=== PATIENT | female | born 1965 | race Caucasian/White ===

== ENCOUNTER 2016-10-29 17:24 | Inpatient (IN) | payer OTHER, BC ==
[~2016-10-29] VITALS: Ht 165.1 cm; Wt 76.4 kg
[~2016-10-29 17:24] MED LIST: AMPH20TA2 PO; ASPEC81 PO; BUPR-83 PO; CLON0.5T3 PO; ERGO1CAP35 PO; GLC/500 PO; LSN25 PO; NTRSLP4 SL; PRAZ2CAP3 PO; PRAZ5CAP2 PO; SERT50TA PO; SIMV20TA2 PO; SPIR25TA PO; TOPI50TA16 PO; TRET0.1C42 TOP
[2016-10-29] MEDS ORDERED: ASPIRIN 81 MG CHEW PO STA (17:46)
[2016-10-29 17:55] LABS: BASO % 0.6 %; BASO ABS # 0.04 K/uL (0-0.2); COMPLETE YES; HEMATOCRIT 38.3 % (37-47); IG% 0.1 %; LYMPH % 28.5 %; LYMPH ABS # 1.95 K/uL (1.2-3.4); MEAN CELL VOLUME 84.4 fL (80-100); MEAN CORPUSCULAR HEMOGLOBIN 27.8 pg (25-34); MEAN CORPUSCULAR HGB CONC 32.9 g/dl (32-36); MEAN PLATELET VOLUME 9.1 fL (7.4-10.4); MONO % 11.1 %; NEUT % 57.7 %; PLATELET COUNT 297 K/uL (130-400); RED BLOOD COUNT 4.54 M/uL (4.2-5.4); WHITE BLOOD COUNT 6.84 K/uL (4.8-10.8)
[2016-10-29 18:06] LABS: ALT/SGPT 28 U/L (12-78); BLOOD UREA NITROGEN 30 mg/dl (7-18); BUN/CREATININE RATIO 20.1 (10-20); CALCIUM 8.9 mg/dl (8.5-10.1); CARBON DIOXIDE 21 mmol/L (21-32); CHLORIDE 105 mmol/L (98-107); GLUCOSE 96 mg/dl (70-99); POTASSIUM 4.4 mmol/L (3.5-5.1); SODIUM 138 mmol/L (136-145)
[2016-10-29 18:13] LABS: ALKALINE PHOSPHATASE 69 U/L (45-117); AST/SGOT 14 U/L (15-37); CKMB/CK RATIO 1.1 (0-3.0)
[2016-10-29] MEDS ORDERED: SODIUM CHLORIDE 0.9% 1000ML 1,000 ML IV STA (18:16)
[2016-10-29] MEDS ORDERED: SPRN100 PO (18:24)
[2016-10-29] MEDS ORDERED: ZLF/100 PO (18:24)
[2016-10-29] MEDS ORDERED: CLON0.5T3 PO (18:24)
[2016-10-29] MEDS ORDERED: ERGO500037 PO (18:24)
--- NOTE | 2016-10-29 18:53 | EMERGENCY ROOM VISIT NOTE ---
History Report prepared by Kendy: Beatriz Rome Under the Supervision of: Dr. Abdullahi Bentley M.D. First contact with patient: 17:39 Chief Complaint: CHEST PAIN Stated Complaint: CHEST PAIN SHORTNESS OF BREATH History of Present Illness The patient is a 51 year old female who presents to the Emergency Room with complaints of constant chest pain for the past 2 days. She notes shortness of breath that is worse with exertion. She has a history of Takotsubo cardiomyopathy about 1 year ago. She states that her current symptoms feel similar to the symptoms she experienced then. The patient reports that stress seems to exacerbate these symptoms. 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 It has not been any more stressful than usual. She rates her pain as a 4/10 in severity. 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 Jewell and has an appointment next week. She takes a daily aspirin. Source of History: patient Onset: 2 days ago Position: chest Symptom Intensity: 4/10 Timing: constant Modifying Factors (Worsening): exertion, other (stress) Associated Symptoms: + SOB Review of Systems See HPI for pertinent positives & negatives. A total of 10 systems reviewed and were otherwise negative. Past Medical & Surgical Medical Problems: (1) Attention deficit disorder with hyperactivity (2) Coronary artery disease (3) Hyperlipidemia (4) Insulin resistance (5) Posttraumatic stress disorder (6) Takotsubo cardiomyopathy Surgical Problems: (1) Status post cardiac catheterization (2) Status post tubal ligation Family History Patient reports no known family medical history. Social History Smoking Status: Never Smoker Marital Status: Housing Status: lives with family Occupation Status: unemployed Current/Historical Medications Scheduled Amphetamine-Dextroamphetamine 20MG (Adderall 20MG), 20 MG PO BID Aspirin (Ecotrin Low Strength), 81 MG PO HS Bupropion (Wellbutrin), 200 MG PO QAM Bupropion (Wellbutrin), 100 MG PO QPM Clonazepam (Klonopin), 0.5 MG PO TID Ergocalciferol (Vitamin D 47553 Unit), 50,000 UNIT PO WK Lisinopril (Lisinopril), 2.5 MG PO QAM Metformin Hcl (Glucophage), 500 MG PO BID Prazosin Hcl (Prazosin), 10 MG PO HS Sertraline HCl (Sertraline HCl), 100 MG PO BID Simvastatin (Zocor), 20 MG PO HS Spironolactone (Spironolactone), 100 MG PO BID Topiramate (Topamax), 50 MG PO HS Tretinoin (Tretinoin), 1 APPLN TOP HS Scheduled PRN Clonazepam (Klonopin), 0.5 MG PO DAILY PRN for Anxiety Nitroglycerin (Nitrostat), 0.4 MG SL UD PRN for Chest Pain Allergies Coded Allergies: Sulfa Antibiotics (Verified Allergy, Severe, FACIAL SWELLING, 10/29/16) Buspirone (Verified Allergy, Unknown, SUICIDAL IDEATIONS, 10/29/16) Physical Exam Vital Signs Date Time Temp Pulse Resp B/P Pulse Ox O2 Delivery O2 Flow Rate FiO2 10/29/16 19:24 78 23 99 10/29/16 19:21 121/55 10/29/16 18:54 77 16 10/29/16 18:24 77 21 100 10/29/16 17:54 100 Room Air 10/29/16 17:54 100 Room Air 10/29/16 17:54 79 22 99 10/29/16 17:42 82 10/29/16 17:26 37.0 81 18 109/76 90 Room Air Physical Exam GENERAL: Patient is a healthy-appearing well-nourished 51 year old female. HEAD: Normocephalic atraumatic EYES: Ocular movements intact pupils equal and react to light OROPHARYNX mucous membranes are moist no exudates present no erythema or edema present NECK: Supple no nuchal rigidity CHEST: Good equal expansion LUNGS: Clear and equal to auscultation CARDIAC: Normal S1 and S2 ABDOMEN: Soft nontender no guarding BACK: No CVA tenderness EXTREMITIES: No pain upon palpation normal muscle strength in all groups no clubbing cyanosis or edema NEURO: Patient is following commands is answering questions appropriately. Alert and oriented x3 Cranial Nerves 2-12 grossly intact Medical Decision & Procedures ER Provider Diagnostic Interpretation: Radiology results as stated below per my review and radiologist interpretation: SINGLE VIEW CHEST CLINICAL HISTORY: Atypical chest pain. FINDINGS: An AP, portable, upright chest radiograph is compared to study dated 11/26/2015. The cardiomediastinal silhouette is unremarkable. An accessory azygous fissure is incidentally noted. The lungs and pleural spaces are clear. No pneumothorax is seen. The bony thorax is grossly intact. IMPRESSION: No active disease in the chest. Electronically signed by: Meet Mccullough M.D. 10/29/2016 7:04 PM Dictated Date/Time: 10/29/2016 7:04 PM Laboratory Results Test 10/29/16 17:40 Total Bilirubin 0.2 mg/dl (0.2-1) Direct Bilirubin < 0.1 mg/dl (0-0.2) Aspartate Amino Transf (AST/SGOT) 14 U/L (15-37) Alanine Aminotransferase (ALT/SGPT) 28 U/L (12-78) Alkaline Phosphatase 69 U/L (45-117) Total Protein 7.2 gm/dl (6.4-8.2) Albumin 3.9 gm/dl (3.4-5.0) Lipase 258 U/L (73-393) Labs reviewed by ED physician. Medications Administered Medications (Trade) Dose Ordered Sig/Zoila Route Start Time Stop Time Status Last Admin Dose Admin Aspirin 324 mg 324 mg NOW STAT PO 10/29/16 17:46 10/29/16 17:48 DC 10/29/16 18:21 324 MG Sodium Chloride (Nss 1000ml) 1,000 ml @ 999 mls/hr Q1H1M STAT IV 10/29/16 18:16 10/29/16 19:16 DC 10/29/16 18:23 999 MLS/HR ED Course 1739: Past medical records reviewed. The patient was evaluated in room B10. A complete history and physical examination was performed. 1746: Aspirin 324 mg PO 1816: NSS 1000 ml @ 99 mls/hr IV 1850: I reassessed the patient at this time. She is resting comfortably. I discussed the results and treatment plan with the patient. I answered all pertaining questions that she had. She expressed understanding and verbalized agreement. 1858: I spoke with Dr. Varghese. We discussed the patients results and treatment plan. The patient will be evaluated by the [facility] for further management. Medical Decision Differential diagnosis: Etiologies such as cardiac ischemia, aortic dissection, pulmonary embolism, pneumonia, pneumothorax, musculoskeletal, infections, pericarditis, myocarditis , esophageal rupture, gastrointestinal, as well as others were entertained. This is a 51-year-old female who presents emergency department with a history of broken heart syndrome. Patient is complaining of chest pain that has been ongoing for the past 3 days. She does have an elevation in her troponin. I did discuss the case with the hospitalist service who agreed to admit the patient. The patient was given 3 and 24 mg of aspirin. Patient was in agreement with the treatment plan. Consults Time Called: 1854 Consulting Physician: Dr. Varghese Returned Call: [address] Varghese. We discussed the patients results and treatment plan. The patient will be evaluated by the [facility] for further management. Impression Primary Impression: Chest pain Scribe Attestation The scribe's documentation has been prepared under my direction and personally reviewed by me in its entirety. I confirm that the note above accurately reflects all work, treatment, procedures, and medical decision making performed by me. Departure Information Dispostion Being Evaluated By Hospitalist Referrals Romy Fuller D.O. (PCP) Patient Instructions My [facility] Problem Qualifiers Primary Impression: Chest pain Chest pain type: precordial pain Qualified Codes: R07.2 - Precordial pain
--- NOTE | 2016-10-29 19:05 | DIAGNOSTIC IMAGING REPORT ---
SINGLE VIEW CHEST CLINICAL HISTORY: Atypical chest pain. FINDINGS: An AP, portable, upright chest radiograph is compared to study dated 11/26/2015. The cardiomediastinal silhouette is unremarkable. An accessory azygous fissure is incidentally noted. The lungs and pleural spaces are clear. No pneumothorax is seen. The bony thorax is grossly intact. IMPRESSION: No active disease in the chest. Electronically signed by: Meet Mccullough M.D. 10/29/2016 7:04 PM Dictated Date/Time: 10/29/2016 7:04 PM
--- NOTE | 2016-10-29 19:24 | History and Physical ---
History & Physical Date & Time of Service: Oct 29, 2016 at 19:24 . Chief Complaint: Chest Pain Shortness Of Breath Primary Care Physician: Romy Fuller D.O. . History of Present Illness Source: patient, family, clinic records, hospital records 51 YO female followed by Dr. Fuller for Family Medicine; to see Dr. Jewell to get established for Cardiology care in about 2 weeks. Admitted for chest pain in 2014. Cardiac cath revealed only mild coronary artery disease (30% proximal LAD). Ventriculogram and echo consistent with takotsubo cardiomyopathy. Patient had been under significant emotional stress at that time. She was treated medically, did well, and reports that follow-up echocardiogram showed resolution of wall motion abnormalities; subsequently weaned off most cardiac meds. Developed mid-sternal chest pressure and dyspnea about 3 days ago. The chest pressure has been constant, nonradiating. She rates the pain as 5/10. No associated nausea or vomiting. Tried nitroglycerin on 3 occasions without any relief. She is physically active and works out 3 times a week, but has noted dyspnea walking up stairs and was unable to complete her usual gym routine yesterday. No fever. She has a mild nonproductive cough which seems to be residual from a respiratory illness about 2-3 weeks ago. Had a syncopal episode last evening, preceded by lightheadedness and diaphoresis. No associated palpitations, seizure activity, tongue biting, incontinence, postictal confusion. reports that she was unresponsive for about 15 seconds. 2 or 3 similar syncopal episodes over the past few weeks. She has had ongoing emotional stress over past few years with associated posttraumatic stress disorder. No new / acute stressors. . Past Medical/Surgical History Chronic and Resolved Medical Problems: (1) Attention deficit disorder with hyperactivity Status: Chronic (2) Coronary artery disease Permanent Comment: nonocclusive CAD 30% proximal LAD per cath 07/07/15 Status: Chronic (3) Hyperlipidemia Status: Chronic (4) Insulin resistance Status: Chronic (5) Posttraumatic stress disorder Status: Chronic (6) Takotsubo cardiomyopathy Permanent Comment: 2014 Status: Resolved Surgical Problems: (1) Status post cardiac catheterization Permanent Comment: nonocclusive CAD 30% proximal LAD 07/07/15 Status: Chronic (2) Status post tubal ligation Status: Chronic . Family History Patient reports no known family medical history. Social History Smoking Status: Never Smoker Alcohol Use: none Marital Status: Occupational Status: unemployed Multi-Drug Resistant Organisms History of MDRO: No Allergies Coded Allergies: Sulfa Antibiotics (Verified Allergy, Severe, FACIAL SWELLING, 10/29/16) Buspirone (Verified Allergy, Unknown, SUICIDAL IDEATIONS, 10/29/16) Home Medications Scheduled Amphetamine-Dextroamphetamine 20MG (Adderall 20MG), 20 MG PO BID Aspirin (Ecotrin Low Strength), 81 MG PO HS Bupropion (Wellbutrin), 200 MG PO QAM Bupropion (Wellbutrin), 100 MG PO QPM Clonazepam (Klonopin), 0.5 MG PO TID Ergocalciferol (Vitamin D 36131 Unit), 50,000 UNIT PO WK Lisinopril (Lisinopril), 2.5 MG PO QAM Metformin Hcl (Glucophage), 500 MG PO BID Prazosin Hcl (Prazosin), 10 MG PO HS Sertraline HCl (Sertraline HCl), 100 MG PO BID Simvastatin (Zocor), 20 MG PO HS Spironolactone (Spironolactone), 100 MG PO BID Topiramate (Topamax), 50 MG PO HS Tretinoin (Tretinoin), 1 APPLN TOP HS Scheduled PRN Clonazepam (Klonopin), 0.5 MG PO DAILY PRN for Anxiety Nitroglycerin (Nitrostat), 0.4 MG SL UD PRN for Chest Pain Review of Systems Constitutional: No chills, No fever, No weight loss Eyes: + worsening of vision (attributed to cataract), No diplopia ENT: No nasal symptoms, No sore throat Respiratory: + cough (mild, nonproductive), + dyspnea on exertion, + shortness of breath Cardiovascular: + problem reported (as noted above in HPI) Abdomen: No GI bleeding, No diarrhea, No nausea, No pain, No vomiting Musculoskeletal: No joint pain, No muscle pain Genitourinary - Female: No dysuria, No hematuria Neurologic: + problem reported (no headaches) Psychiatric: + anxiety, + depression symptoms Endocrine: No excessive thirst, No excessive urination Hematologic / Lymphatic: + abnormal bleeding/bruising, No swollen lymph nodes Integumentary: No new/changing skin lesions, No rash Physical Exam Vital Signs Date Time Temp Pulse Resp B/P Pulse Ox O2 Delivery O2 Flow Rate FiO2 10/29/16 17:54 100 Room Air 10/29/16 17:54 100 Room Air 10/29/16 17:42 82 10/29/16 17:26 37.0 81 18 109/76 90 Room Air General Appearance: WD/WN, no apparent distress Head: normocephalic, atraumatic Eyes: normal inspection, PERRL, EOMI, sclerae normal ENT: normal ENT inspection, hearing grossly normal, pharynx normal Neck: supple, no adenopathy, thyroid normal, no JVD, trachea midline Respiratory/Chest: lungs clear, no respiratory distress, no accessory muscle use Cardiovascular: regular rate, rhythm, no edema, no gallop, no JVD, + systolic murmur (II/ systolic murmur at base) Abdomen/GI: normal bowel sounds, non tender, soft, no organomegaly Extremities/Musculoskelatal: normal inspection, no calf tenderness, no pedal edema Neurologic/Psych: 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-XII nml as tested (PERRL, EOMI, no facial palsy), no motor/sensory deficits (grossly intact), alert, normal mood/affect, oriented x 3 Skin: normal color, warm/dry, no rash Lymphatic: no adenopathy Diagnostics Laboratory Results Results Past 24 Hours Test 10/29/16 17:40 Range/Units White Blood Count 6.84 4.8-10.8 K/uL Red Blood Count 4.54 4.2-5.4 M/uL Hemoglobin 12.6 12.0-16.0 g/dL Hematocrit 38.3 37-47 % Mean Corpuscular Volume 84.4 80-100 fL Mean Corpuscular Hemoglobin 27.8 25-34 pg Mean Corpuscular Hemoglobin Concent 32.9 32-36 g/dl Platelet Count 297 130-400 K/uL Mean Platelet Volume 9.1 7.4-10.4 fL Neutrophils (%) (Auto) 57.7 % Lymphocytes (%) (Auto) 28.5 % Monocytes (%) (Auto) 11.1 % Eosinophils (%) (Auto) 2.0 % Basophils (%) (Auto) 0.6 % Neutrophils # (Auto) 3.94 1.4-6.5 K/uL Lymphocytes # (Auto) 1.95 1.2-3.4 K/uL Monocytes # (Auto) 0.76 0.11-0.59 K/uL Eosinophils # (Auto) 0.14 0-0.5 K/uL Basophils # (Auto) 0.04 0-0.2 K/uL RDW Standard Deviation 39.2 36.4-46.3 fL RDW Coefficient of Variation 12.8 11.5-14.5 % Immature Granulocyte % (Auto) 0.1 % Immature Granulocyte # (Auto) 0.01 0.00-0.02 K/uL Sodium Level 138 136-145 mmol/L Potassium Level 4.4 3.5-5.1 mmol/L Chloride Level 105 98-107 mmol/L Carbon Dioxide Level 21 21-32 mmol/L Anion Gap 12.0 3-11 mmol/L Blood Urea Nitrogen 30 7-18 mg/dl Creatinine 1.50 0.60-1.20 mg/dl Est Creatinine Clear Calc Drug Dose 43.7 ml/min Estimated GFR () 45.6 Estimated GFR (Non- 39.4 BUN/Creatinine Ratio 20.1 10-20 Random Glucose 96 70-99 mg/dl Calcium Level 8.9 8.5-10.1 mg/dl Total Bilirubin 0.2 0.2-1 mg/dl Direct Bilirubin < 0.1 0-0.2 mg/dl Aspartate Amino Transf (AST/SGOT) 14 15-37 U/L Alanine Aminotransferase (ALT/SGPT) 28 12-78 U/L Alkaline Phosphatase 69 45-117 U/L Total Creatine Kinase 122 26-192 U/L Creatine Kinase MB 1.3 0.5-3.6 ng/ml Creatine Kinase MB Ratio 1.1 0-3.0 Troponin I 0.066 0-0.045 ng/ml Total Protein 7.2 6.4-8.2 gm/dl Albumin 3.9 3.4-5.0 gm/dl Lipase 258 73-393 U/L Diagnostic Radiology SINGLE VIEW CHEST IMPRESSION: No active disease in the chest. Electronically signed by: Meet Mccullough M.D. 10/29/2016 7:04 PM . EKG EKG performed at 17:33 reviewed and demonstrated NSR at 85 / minute, ~ [address] elevation V2 with biphasic T-waves, ~ 0.[address] elevation V3, ~ 0.[address] depression lateral precordial leads. . Impression Assessment and Plan CHEST PAIN / DYSPNEA History of takotsubo cardiomyopathy 2014 with reported resolution of LV dysfunction. Cath demonstrated 30% proximal LAD lesion. Now presents with 3 day history of constant chest pressure associated with significant dyspnea. Serum troponin minimally elevated at 0.066. EKG as noted above shows NSR with [address] elevation only in V2; does not meet criteria for STEMI. Consider non-STEMI, recurrent takotsubo cardiomyopathy, pericarditis, or other processes. Received aspirin in ED. Will not initiate full anticoagulation unless cardiac markers rise or there are significant clinical changes. Check serial cardiac markers. Check ESR and CRP. Check D-dimer to screen for possible VTE. Check echo. Consult Cardiology. SYNCOPE Patient and her report a few syncopal episodes over the past few weeks. BUN and creatinine are elevated; she may be experiencing orthostatic hypotension Hold spironolactone. IV fluids. Check orthostatic vital signs. Monitor for arrhythmias. Consider further evaluation if symptoms recur. ANXIETY / DEPRESSION / POSTTRAUMATIC STRESS DISORDER Continue usual meds. ADHD Hold amphetamine-dextroamphetamine pending cardiac evaluation. VTE PROPHYLAXIS SQ enoxaparin. Ambulate. DISPOSITION Admit to Telemetry Unit. Expected discharge to home. Family Medicine follow-up with Dr. Fuller. Cardiology follow-up with Dr. Jewell. . VTE Prophylaxis Risk Level: Low Given or contraindicated: Enoxaparin (Lovenox)SQ
[2016-10-29] MEDS ORDERED: NITROGLYCERIN 0.4 MG SL PER TAB CHARGE SL PRN (19:30)
[2016-10-29] MEDS ORDERED: ACETAMINOPHEN 325 MG TAB PO PRN (19:30)
[2016-10-29 20:32] VITALS: BP 125/81; PULSE 84; TEMP 36.9; O2SAT 98; Ht 165.1 cm; Wt 76.4 kg
[2016-10-29] MEDS ORDERED: ASPI-428 PO (20:36)
[2016-10-29] MEDS ORDERED: MoRPHine SULFATE 2 MG/ML CARP IV ONE (20:41)
[2016-10-29] MEDS ORDERED: CLONAZEPAM 0.5 MG TAB PO PRN (20:45)
[2016-10-29] MEDS ORDERED: MoRPHine SULFATE 2 MG/ML CARP IV PRN (20:45)
[2016-10-29] MEDS ORDERED: INFLUENZA VIRUS QUAD VACCINE 0.5 ML SYR IM. ONE (21:00)
[2016-10-29] MEDS ORDERED: INFLUENZA ADMINISTRATION CHARGE ONE (21:00)
[2016-10-29] MEDS ORDERED: ASPIRIN 81 MG ECTAB PO SCH (21:00)
[2016-10-29 21:26] LABS: INR 0.9 (0.9-1.1); PROTHROMBIN TIME (PATIENT) 9.9 SECONDS (9.0-12.0)
[2016-10-29 21:31] LABS: C-REACTIVE PROTEIN < 0.29 mg/dl (0-0.29); CKMB/CK RATIO 1.1 (0-3.0)
[2016-10-29] MEDS: CLONAZEPAM 0.5 MG TAB PO SCH (21:50)
[2016-10-29] MEDS: SODIUM CHLORIDE 0.9% 1000ML 1,000 ML IV SCH (21:50)
[2016-10-29] MEDS: SIMVASTATIN 20 MG TAB PO SCH (21:51)
[2016-10-29] MEDS: TOPIRAMATE 50 MG TAB PO SCH (21:51)
[2016-10-29] MEDS: PRAZOSIN HCL 1 MG CAP PO SCH (21:52)
[2016-10-29] MEDS ORDERED: ENOXAPARIN 40 MG/0.4 ML SYR SQ ONE (22:13)
[2016-10-30] VITALS (7 sets, daily range): BP systolic 83–123; BP diastolic 47–82; PULSE 70–94; TEMP 36.6–37.2; O2SAT 94–98
[2016-10-30] MEDS: SODIUM CHLORIDE 0.9% 1000ML 1,000 ML IV SCH ×3 (05:00→22:30)
[2016-10-30 07:39] LABS: BUN/CREATININE RATIO 23.3 (10-20); CALCIUM 7.9 mg/dl (8.5-10.1); CREATININE 1.2 mg/dl (0.60-1.20); POTASSIUM 4.2 mmol/L (3.5-5.1)
[2016-10-30 07:49] LABS: CHOLESTEROL/HDL RATIO 2.2; CKMB/CK RATIO 1.5 (0-3.0)
[2016-10-30] MEDS ORDERED: SPIRONOLACTONE 100 MG TAB PO SCH (08:00)
[2016-10-30] MEDS: LISINOPRIL 2.5 MG TAB PO SCH (08:05)
[2016-10-30] MEDS: SERTRALINE HCL 100 MG TAB PO SCH ×2 (08:09→14:03)
[2016-10-30] MEDS: CLONAZEPAM 0.5 MG TAB PO SCH ×3 (08:09→21:29)
[2016-10-30] MEDS ORDERED: NURSING VERBAL MED ORDER ONE (11:00)
--- NOTE | 2016-10-30 12:22 | Progress Note ---
Internal Med Progress Note Date of Service: Oct 30, 2016. Provider Documentation: SUBJECTIVE: Patient is doing well. Chest pain has resolved. No nausea, vomiting, sweating, palpitations, dizziness, fever, chills, cough C/o syncope 2-3 times - per she gets agitated prior to these episodes and than passes out for seconds x 3 weeks OBJECTIVE: Vital Signs-as noted below Exam: General-AAOX3, no distress, anxious + Neck- Supple, NO JVD Lungs-AEBE, no wheezing, crackles Heart-S1, S2 normal, no murmurs Extremities-No edema Lab data as noted below. Diagnostic Radiology SINGLE VIEW CHEST IMPRESSION: No active disease in the chest. Electronically signed by: Meet Mccullough M.D. 10/29/2016 7:04 PM . EKG EKG performed at 17:33 reviewed and demonstrated NSR at 85 / minute, ~ [address] elevation V2 with biphasic T-waves, ~ 0.[address] elevation V3, ~ 0.[address] depression lateral precordial leads. ASSESSMENT & PLAN: Assessment and Plan CHEST PAIN / DYSPNEA History of takotsubo cardiomyopathy 2015 with reported resolution of LV dysfunction. Hx of psychiatric issues - depression/Anxiety, PTSD Cath demonstrated 30% proximal LAD lesion. -EKG- no significant ischemic changes, Trop- 0.066, 0.065, 0.048 -Continue with Aspirin -Work up- Echo, EKG in AM, Trend troponin, d dimer- negative SYNCOPE Patient and her report a few syncopal episodes over the past few weeks. Says she gets agitated prior to these episodes. Could be secondary to psychiatric meds ? will rule out cardiac etiology -Hold spironolactone. -IV fluids. -Work up- Orthostats - negative ANXIETY / DEPRESSION / POSTTRAUMATIC STRESS DISORDER Continue usual meds. ADHD Hold amphetamine-dextroamphetamine pending cardiac evaluation. VTE PROPHYLAXIS SQ enoxaparin. Ambulate. DISPOSITION Expected discharge to home Family Medicine follow-up with Dr. Fuller. Cardiology follow-up with Dr. Jewell. . Vital Signs: Date Time Temp Pulse Resp B/P Pulse Ox O2 Delivery O2 Flow Rate FiO2 10/30/16 11:29 36.8 78 18 100/63 94 Room Air 10/30/16 08:00 Room Air 10/30/16 07:11 36.6 72 18 94/60 98 Room Air 10/30/16 04:00 Room Air 10/30/16 03:58 37.0 76 20 83/47 96 Room Air 10/30/16 00:01 36.7 94 16 90/54 94 Room Air 10/30/16 00:01 Room Air 10/29/16 20:32 36.9 84 18 125/81 98 Room Air 10/29/16 19:24 78 23 99 10/29/16 19:21 121/55 10/29/16 18:54 77 16 10/29/16 18:24 77 21 100 10/29/16 17:54 100 Room Air 10/29/16 17:54 100 Room Air 10/29/16 17:54 79 22 99 10/29/16 17:42 82 10/29/16 17:26 37.0 81 18 109/76 90 Room Air Lab Results: Results Past 24 Hours Test 10/29/16 17:40 10/29/16 20:45 10/30/16 06:40 Range/Units White Blood Count 6.84 4.8-10.8 K/uL Red Blood Count 4.54 4.2-5.4 M/uL Hemoglobin 12.6 12.0-16.0 g/dL Hematocrit 38.3 37-47 % Mean Corpuscular Volume 84.4 80-100 fL Mean Corpuscular Hemoglobin 27.8 25-34 pg Mean Corpuscular Hemoglobin Concent 32.9 32-36 g/dl Platelet Count 297 130-400 K/uL Mean Platelet Volume 9.1 7.4-10.4 fL Neutrophils (%) (Auto) 57.7 % Lymphocytes (%) (Auto) 28.5 % Monocytes (%) (Auto) 11.1 % Eosinophils (%) (Auto) 2.0 % Basophils (%) (Auto) 0.6 % Neutrophils # (Auto) 3.94 1.4-6.5 K/uL Lymphocytes # (Auto) 1.95 1.2-3.4 K/uL Monocytes # (Auto) 0.76 0.11-0.59 K/uL Eosinophils # (Auto) 0.14 0-0.5 K/uL Basophils # (Auto) 0.04 0-0.2 K/uL RDW Standard Deviation 39.2 36.4-46.3 fL RDW Coefficient of Variation 12.8 11.5-14.5 % Immature Granulocyte % (Auto) 0.1 % Immature Granulocyte # (Auto) 0.01 0.00-0.02 K/uL Sodium Level 138 141 136-145 mmol/L Potassium Level 4.4 4.2 3.5-5.1 mmol/L Chloride Level 105 109 98-107 mmol/L Carbon Dioxide Level 21 22 21-32 mmol/L Anion Gap 12.0 10.0 3-11 mmol/L Blood Urea Nitrogen 30 28 7-18 mg/dl Creatinine 1.50 1.20 0.60-1.20 mg/dl Est Creatinine Clear Calc Drug Dose 43.7 54.5 ml/min Estimated GFR () 45.6 59.8 Estimated GFR (Non- 39.4 51.6 BUN/Creatinine Ratio 20.1 23.3 10-20 Random Glucose 96 88 70-99 mg/dl Calcium Level 8.9 7.9 8.5-10.1 mg/dl Total Bilirubin 0.2 0.2-1 mg/dl Direct Bilirubin < 0.1 0-0.2 mg/dl Aspartate Amino Transf (AST/SGOT) 14 15-37 U/L Alanine Aminotransferase (ALT/SGPT) 28 12-78 U/L Alkaline Phosphatase 69 45-117 U/L Total Creatine Kinase 122 100 78 26-192 U/L Creatine Kinase MB 1.3 1.1 1.2 0.5-3.6 ng/ml Creatine Kinase MB Ratio 1.1 1.1 1.5 0-3.0 Troponin I 0.066 0.065 0.048 0-0.045 ng/ml Total Protein 7.2 6.4-8.2 gm/dl Albumin 3.9 3.4-5.0 gm/dl Lipase 258 73-393 U/L Erythrocyte Sedimentation Rate 22 0-21 mm/hr Prothrombin Time 9.9 9.0-12.0 SECONDS Prothromb Time International Ratio 0.9 0.9-1.1 Activated Partial Thromboplast Time 27.2 21.0-31.0 SECONDS Partial Thromboplastin Ratio 1.0 D-Dimer < 190 0-500 ug/L FEU C-Reactive Protein < 0.29 0-0.29 mg/dl Triglycerides Level 89 0-150 mg/dl Cholesterol Level 159 0-200 mg/dl HDL Cholesterol 73 mg/dl LDL Cholesterol, Calculated 68 mg/dl VLDL Cholesterol, Calculated 18 mg/dl Cholesterol/HDL Ratio 2.2
--- NOTE | 2016-10-30 13:20 | ECHOCARDIOGRAM REPORT ---
*NOTICE TO RECEIVING [employer] This information is strictly Confidential and protected under [place] law. [place] law prohibits you from making any further disclosure of this information unless further disclosure is expressly permitted by the written consent of the person to whom it pertains or is authorized by law. A general authorization for the release of medical or other information is not sufficient for this purpose. Hospital accepts no responsibility if the information is made available to any other person, INCLUDING THE PATIENT. Interpretation Summary * Name: MARLO CESPEDES Study Date: 10/30/2016 08:57 AM BP: 83/47 mmHg * Patient Location: C.2T\S\E215\S\1 HR: 76 * : 1965 (M/d/yyyy) Gender: Female Height: 65 in * Age: 51 yrs Ethnicity: CA Weight: 162 lb * Ordering Physician: Manuel Varghese * Performed By: Annabel Adair RDCS * * Reason For Study: Chest pain * BSA: 1.8 m2 * Compared to prior study, changes are noted. * -- Conclusions -- * The left ventricle is normal in size. * There is moderate anterior wall hypokinesis. * There is moderate apical wall hypokinesis. * There is moderate septal hypokinesis. * Ejection Fraction = 60-65%. * Compared to prior study, changes are noted. Procedure Details * A complete two-dimensional transthoracic echocardiogram was performed (2D, M-mode, Doppler and color flow Doppler). Left Ventricle * The left ventricle is normal in size. * There is normal left ventricular wall thickness. * Ejection Fraction = 60-65%. * There is moderate anterior wall hypokinesis. * There is moderate apical wall hypokinesis. * There is moderate septal hypokinesis. Right Ventricle * The right ventricle is normal size. * The right ventricular systolic function is normal. Atria * The left atrial size is normal. * Right atrial size is normal. Mitral Valve * The mitral valve leaflets appear thickened, but open well. * There is mild mitral regurgitation. Tricuspid Valve * The tricuspid valve anatomy is normal. * Significant tricuspid regurgitation is absent. Aortic Valve * The aortic valve is normal in structure and function. Pulmonic Valve * The pulmonic valve is not well visualized. Great Vessels * The aortic root and proximal ascending aorta are normal sized. Pericardium/Pleural * There is no pericardial effusion. MMode 2D Measurements and Calculations IVSd 1.2 cm LVIDd 3.5 cm LVIDs 1.9 cm LVPWd 0.90 cm IVS/LVPW 1.3 FS 46.4 % EDV(Teich) 50.2 ml ESV(Teich) 10.7 ml EF(Teich) 78.8 % EDV(cubed) 42.2 ml ESV(cubed) 6.5 ml EF(cubed) 84.6 % LV mass(C)d 110.1 grams LV mass(C)dI 60.9 grams/m\S\2 CO(Teich) 3.4 l/min CI(Teich) 1.9 l/min/m\S\2 SV(Teich) 39.6 ml SI(Teich) 21.9 ml/m\S\2 CO(cubed) 3.0 l/min CI(cubed) 1.7 l/min/m\S\2 SV(cubed) 35.7 ml SI(cubed) 19.7 ml/m\S\2 Ao root diam 3.1 cm Ao root area 7.4 cm\S\2 ACS 2.0 cm LA dimension 3.4 cm asc Aorta Diam 3.2 cm LA/Ao 1.1 LVOT diam 1.8 cm LVOT area 2.6 cm\S\2 LVAd ap4 29.2 cm\S\2 LVLd ap4 7.7 cm EDV(MOD-sp4) 90.0 ml LVAs ap4 16.4 cm\S\2 LVLs ap4 6.3 cm ESV(MOD-sp4) 34.8 ml EF(MOD-sp4) 61.3 % LVAd ap2 27.5 cm\S\2 LVLd ap2 8.5 cm EDV(MOD-sp2) 74.9 ml LVAs ap2 14.6 cm\S\2 LVLs ap2 6.0 cm ESV(MOD-sp2) 28.9 ml EF(MOD-sp2) 61.4 % CO(MOD-sp4) 4.7 l/min CI(MOD-sp4) 2.6 l/min/m\S\2 SV(MOD-sp4) 55.2 ml SI(MOD-sp4) 30.5 ml/m\S\2 CO(MOD-sp2) 3.9 l/min CI(MOD-sp2) 2.2 l/min/m\S\2 SV(MOD-sp2) 46.0 ml SI(MOD-sp2) 25.4 ml/m\S\2 Doppler Measurements and Calculations MV E max alonso 127.6 cm/sec MV A max alonso 121.3 cm/sec MV E/A 1.1 MV dec time 0.20 sec Ao V2 max 178.6 cm/sec Ao max PG 12.8 mmHg Ao max PG (full) 3.1 mmHg TEA(V,A) 2.3 cm\S\2 TEA(V,D) 2.3 cm\S\2 LV V1 max PG 9.7 mmHg LV V1 max 155.5 cm/sec PA V2 max 118.1 cm/sec PA max PG 5.6 mmHg PA acc slope 807.5 cm/sec\S\2 PA acc time 0.10 sec PI max alonso 158.8 cm/sec PI max PG 10.1 mmHg PI dec slope 440.6 cm/sec\S\2 PI P1/2t 105.6 msec TR max alonso 241.3 cm/sec PA pr(Accel) 33.1 mmHg
--- NOTE | 2016-10-30 14:03 | PROGRESS NOTE ---
DATE: 10/30/2016 SUBJECTIVE: I reviewed the patient's echocardiogram from this morning. I compared it to the previous study of 2014. She had Takotsubo syndrome which completely resolved on most the recent echocardiogram. This morning's echocardiogram, however, does have wall motion abnormalities in the anterior, septal, and apical myocardium which could be a reoccurrence of Takotsubo; however, she did have evidence of coronary artery disease on her previous catheterization. I have recommended that we repeat the cardiac catheterization to be sure that she does not have hemodynamically significant coronary artery disease. I have explained the risk, benefit and intent of the procedure to her provided she remains clinically stable through the night, we would do it electively in the morning.
[2016-10-30 14:12] LABS: BASO % 1.1 %; BASO ABS # 0.06 K/uL (0-0.2); EOS % 2.5 %; HEMATOCRIT 34.6 % (37-47); IG% 0.2 %; LYMPH % 39.8 %; LYMPH ABS # 2.21 K/uL (1.2-3.4); MEAN CELL VOLUME 85.4 fL (80-100); MEAN CORPUSCULAR HEMOGLOBIN 28.1 pg (25-34); MEAN PLATELET VOLUME 8.8 fL (7.4-10.4); MONO % 10.1 %; NEUT % 46.3 %; PLATELET COUNT 256 K/uL (130-400); RED BLOOD COUNT 4.05 M/uL (4.2-5.4); WHITE BLOOD COUNT 5.55 K/uL (4.8-10.8)
[2016-10-30 14:20] LABS: INR 0.9 (0.9-1.1); PARTIAL THROMBOPLASTIN RATIO 1.1
[2016-10-30 14:44] LABS: COMPLETE YES; MEAN CORPUSCULAR HGB CONC 32.9 g/dl (32-36)
[2016-10-30] MEDS: HEPARIN 25,000 UNIT/500ML D5W 500 ML IV PRN ×2 (14:59→22:11)
--- NOTE | 2016-10-30 15:37 | CARDIOLOGY CONSULTATION ---
DATE OF CONSULTATION: 10/30/2016 This is a consultation for [facility]. REASON FOR CONSULTATION: Chest pain and shortness of breath. HISTORY OF PRESENT ILLNESS: This is a 51-year-old female with a history of PTSD, anxiety and panic disorder. She was under a great deal of stress in 2014, and presented with apical ballooning syndrome. At that time she underwent a cardiac catheterization that showed minor coronary artery disease in the LAD, but was essentially normal. The patient has been followed by Dr. Peters who recently left the area and is scheduled to see Dr. Jewell at the [facility] in 2 weeks. Over the past 3 days she has had continuous midsternal chest pressure and dyspnea which is nonradiating. She on 3 different occasions took sublingual nitroglycerin without relief. She has had no nausea or vomiting. She is active and works out several days a week; however, this week she has noticed some increased shortness of breath with this activity as well as activity such as walking up steps. She also has been experiencing syncope 2-3 times per week for the past several weeks. She was to ask her mental health adviser regarding her medications and whether they were causing her to pass out. She has no prior history of cardiac arrhythmias. As far as we know from the records available, her LV function returned to normal after the events in 2014. She has had no significant cardiac events until this hospital admission. ALLERGIES: SULFA ANTIBIOTICS AND BUSPIRONE. PAST MEDICAL HISTORY: As described above, the patient has posttraumatic stress disorder with anxiety and panic attacks. There is also a mention in the records regarding attention deficit disorder. She had apical ballooning syndrome in June 2015. At that time she was found to have minor coronary artery disease. The patient has history of dyslipidemia and phase zero diabetes. SOCIAL HISTORY: She lives with her . She is a nonsmoker. FAMILY MEDICAL HISTORY: Noncontributory. REVIEW OF SYSTEMS: A 10-point review of systems is negative except for the history of chief complaint. LABORATORY DATA: Cardiac markers have been elevated but in an indeterminate range since admission. EKG is unchanged from previous. Creatinine is 1.5 and she has mild renal insufficiency which may attribute to the troponin elevation. Hemoglobin is 12.6. IMPRESSION AND RECOMMENDATIONS: This is a medically complex female due to her history of mental health problems including posttraumatic stress disorder, anxiety and panic attacks. It was complicated by her presentation a year and a half ago with apical ballooning syndrome. I think her discomfort is somewhat atypical as it was more or less continuous for the past several days. Her D-dimer is negative, so I do not believe that she has deep venous thrombosis. Her syncopal events may be related to her psychiatric medications, especially the prazosin, which has been known to cause orthostatic syncope. As mentioned above, her EKG is essentially unchanged from previous and her cardiac markers are elevated but more than the indeterminant range. I will review the echocardiogram when it is complete. For now, I would leave her on a telemetry unit and I will have further recommendations later.
[2016-10-30] MEDS ORDERED: ENOXAPARIN 40 MG/0.4 ML SYR SQ SCH (21:00)
[2016-10-30 21:16] LABS: PARTIAL THROMBOPLASTIN RATIO 1.7
[2016-10-30] MEDS: ASPIRIN 81 MG ECTAB PO SCH (21:29)
[2016-10-30] MEDS: TOPIRAMATE 50 MG TAB PO SCH (21:29)
[2016-10-30] MEDS: SIMVASTATIN 20 MG TAB PO SCH (21:29)
[2016-10-30] MEDS: PRAZOSIN HCL 1 MG CAP PO SCH (21:30)
[2016-10-30] MEDS ORDERED: HEPARIN IV BOLUS 3,000 UNIT in SYRINGE 0 ML IV STA (21:48)
[2016-10-31] VITALS (20 sets, daily range): BP systolic 87–119; BP diastolic 50–77; PULSE 63–84; TEMP 36.6–38.2; O2SAT 94–100
[2016-10-31 04:33] LABS: HEMATOCRIT 31.9 % (37-47); MEAN CELL VOLUME 84.8 fL (80-100); MEAN CORPUSCULAR HEMOGLOBIN 27.7 pg (25-34); MEAN CORPUSCULAR HGB CONC 32.6 g/dl (32-36); PLATELET COUNT 220 K/uL (130-400); RED BLOOD COUNT 3.76 M/uL (4.2-5.4); WHITE BLOOD COUNT 7.22 K/uL (4.8-10.8)
[2016-10-31 04:50] LABS: BUN/CREATININE RATIO 21.3 (10-20); CALCIUM 7.8 mg/dl (8.5-10.1); CREATININE 1.1 mg/dl (0.60-1.20); POTASSIUM 4.3 mmol/L (3.5-5.1)
[2016-10-31 04:54] LABS: PARTIAL THROMBOPLASTIN RATIO 3.1
[2016-10-31] MEDS: CLONAZEPAM 0.5 MG TAB PO SCH ×3 (08:06→19:58)
[2016-10-31] MEDS: SERTRALINE HCL 100 MG TAB PO SCH ×2 (08:06→13:54)
[2016-10-31] MEDS: LISINOPRIL 2.5 MG TAB PO SCH (08:09)
[2016-10-31] MEDS: SODIUM CHLORIDE 0.9% 1000ML 1,000 ML IV SCH ×2 (09:38→13:55)
--- NOTE | 2016-10-31 09:39 | Clinical Documentation Query ---
CLINICAL DOCUMENTATION QUERY 51-y/o female with known CAD presents with CP and SOB. In your clinical opinion is this patient being managed for: ( + ) NSTEMI ( ) Other explanation of clinical findings (Please Explain) ( ) Unable to determine (Please Define) ( ) Need to Discuss ( ) Not Agree The medical record reflects the following clinical findings, treatment, and risk factors. Clinical Indicators: New echo this visit shows new wall motion abnormalities per cardiology. Troponins are positive (0.066, 0.065, 0.048) Treatment: telemetry, cardiology consult, echo, asa, heparin gtt, scheduled for cardiac cath, Risk Factors: Age, CAD, & hyperlipidemia, Please clarify and document your clinical opinion in the progress notes and discharge summary. Terms such as "probable", "suspected", "likely", "questionable", "possible", or "still to be ruled out" are acceptable. IF IN AGREEMENT, YOU MUST DOCUMENT ABOVE DIAGNOSTIC STATEMENT IN DAILY PROGRESS NOTES AND DISCHARGE SUMMARY. This document is not part of the patient's record. Thank You, Oneal Sesay, RN [phone]
--- NOTE | 2016-10-31 10:56 | Progress Note ---
Internal Med Progress Note Date of Service: Oct 31, 2016. Provider Documentation: SUBJECTIVE: Patient is anxious +, on and off c/o chest pain, currently pain free. No nausea, vomiting, sweating, palpitations, dizziness, fever, chills, cough. C/o syncope 2-3 times - per she gets agitated prior to these episodes and than passes out for seconds x 3 weeks Tele- no events OBJECTIVE: Vital Signs-as noted below Exam: General-AAOX3, no distress, anxious + Neck- Supple, NO JVD Lungs-AEBE, no wheezing, crackles Heart-S1, S2 normal, no murmurs Extremities-No edema Lab data as noted below. Diagnostic Radiology SINGLE VIEW CHEST IMPRESSION: No active disease in the chest. Electronically signed by: Meet Mccullough M.D. 10/29/2016 7:04 PM . EKG EKG performed at 17:33 reviewed and demonstrated NSR at 85 / minute, ~ [address] elevation V2 with biphasic T-waves, ~ 0.[address] elevation V3, ~ 0.[address] depression lateral precordial leads. ASSESSMENT & PLAN: Assessment and Plan NSTEMI : History of takotsubo cardiomyopathy 2014 with reported resolution of LV dysfunction. Hx of psychiatric issues - depression/Anxiety, PTSD Cath demonstrated 30% proximal LAD lesion. -EKG- no significant ischemic changes, Trop- 0.066, 0.065, 0.048- trending down -Continue with Aspirin -Work up- Echo-Anterior/Apical/Septal hypokinesis with EF 65-70% , d dimer- negative PLAN: Cardiac cath today due to elevated troponin and echo showing anterior/ apical/septal hypokinesis. Discussed with Dr Oconnor. SYNCOPE, Multiple episodes : Patient and her report a few syncopal episodes over the past few weeks. Says she gets agitated prior to these episodes. Could be secondary to psychiatric meds ? will rule out cardiac etiology- arrhythmias -Held spironolactone - ok to re start from tomorrow -Work up - Orthostats - Negative -Psychiatry consulted per d/w cardiology- if contributing to these symptoms ANXIETY / DEPRESSION / POSTTRAUMATIC STRESS DISORDER -Continue usual meds. ADHD -Hold amphetamine-dextroamphetamine pending cardiac evaluation. VTE PROPHYLAXIS -SQ enoxaparin. -Ambulate. DISPOSITION Expected discharge to home Family Medicine follow-up with Dr. Fuller. Cardiology follow-up with Dr. Jewell. . Vital Signs: Date Time Temp Pulse Resp B/P Pulse Ox O2 Delivery O2 Flow Rate FiO2 10/31/16 14:45 74 17 99/64 98 Room Air 10/31/16 14:15 68 18 113/77 100 Room Air 10/31/16 14:00 67 17 113/77 99 Room Air 10/31/16 13:45 37.1 63 17 113/70 99 Room Air 10/31/16 13:30 65 17 104/68 94 Room Air 10/31/16 13:29 38.2 69 18 119/68 10/31/16 12:00 96 Room Air 10/31/16 08:10 64 107/68 10/31/16 08:00 95 Room Air 10/31/16 07:48 36.7 68 16 87/50 95 Room Air 10/31/16 04:00 Room Air 10/31/16 03:39 36.8 74 17 99/64 98 Room Air 10/31/16 02:17 Room Air 10/31/16 00:02 Room Air 10/30/16 23:55 37.2 86 17 99/61 98 Room Air 10/30/16 20:00 Room Air 10/30/16 19:16 37.0 82 22 119/79 98 Room Air 10/30/16 16:00 Room Air 10/30/16 15:19 36.7 70 22 123/82 94 Room Air Lab Results: Results Past 24 Hours Test 10/30/16 20:50 10/31/16 04:20 10/31/16 12:49 Range/Units Activated Partial Thromboplast Time 43.9 81.6 21.0-31.0 SECONDS Partial Thromboplastin Ratio 1.7 3.1 White Blood Count 7.22 4.8-10.8 K/uL Red Blood Count 3.76 4.2-5.4 M/uL Hemoglobin 10.4 12.0-16.0 g/dL Hematocrit 31.9 37-47 % Mean Corpuscular Volume 84.8 80-100 fL Mean Corpuscular Hemoglobin 27.7 25-34 pg Mean Corpuscular Hemoglobin Concent 32.6 32-36 g/dl RDW Standard Deviation 40.0 36.4-46.3 fL RDW Coefficient of Variation 12.9 11.5-14.5 % Platelet Count 220 130-400 K/uL Mean Platelet Volume 9.0 7.4-10.4 fL Sodium Level 144 136-145 mmol/L Potassium Level 4.3 3.5-5.1 mmol/L Chloride Level 109 98-107 mmol/L Carbon Dioxide Level 25 21-32 mmol/L Anion Gap 10.0 3-11 mmol/L Blood Urea Nitrogen 23 7-18 mg/dl Creatinine 1.10 0.60-1.20 mg/dl Est Creatinine Clear Calc Drug Dose 59.5 ml/min Estimated GFR () 66.4 Estimated GFR (Non- 57.3 BUN/Creatinine Ratio 21.3 10-20 Random Glucose 93 70-99 mg/dl Calcium Level 7.8 8.5-10.1 mg/dl Kaolin Activated Coagulation Time 219 94-140 SECONDS
[2016-10-31] MEDS ORDERED: NiCARDipine HCL INJ 2.5 MG/ML 10 ML AMP ONE (11:41)
[2016-10-31] MEDS ORDERED: HEPARIN SOD (PORCINE) 1000 UNIT/ML 10 ML VIAL ONE (11:42)
[2016-10-31] MEDS ORDERED: NITROGLYCERIN/D5W 100MCG/ML 20ML SYR ONE (11:42)
[2016-10-31] MEDS ORDERED: MIDAZOLAM HCL 1 MG/ML 2ML VIAL ONE ×2 (11:43→12:01)
[2016-10-31] MEDS ORDERED: FENTANYL CITRATE INJ 50 MCG/1 ML 2 ML VIAL ONE (11:43)
[2016-10-31] MEDS ORDERED: ADENOSINE IV SOLN 3 MG/ML 20 ML VIAL IV ONE (12:23)
[2016-10-31] MEDS ORDERED: ACETAMINOPHEN 325 MG TAB PO PRN ×2 (13:15→13:30)
--- NOTE | 2016-10-31 13:16 | Procedure Note ---
Post-Mod Sedation Assessment General Date of Moderate Sedation Oct 31, 2016. Vital Signs: Vital Signs Past 12 Hours Date Time Temp Pulse Resp B/P Pulse Ox O2 Delivery O2 Flow Rate FiO2 10/31/16 12:00 96 Room Air 10/31/16 08:10 64 107/68 10/31/16 08:00 95 Room Air 10/31/16 07:48 36.7 68 16 87/50 95 Room Air 10/31/16 04:00 Room Air 10/31/16 03:39 36.8 74 17 99/64 98 Room Air 10/31/16 02:17 Room Air Review - Discharge Criteria Vital Signs Stable: Yes Alert/Oriented/Conversant: Yes Returned to Baseline Mental St: Yes Nausea Absent/Minimal: Yes Pain/Discomfort/Absent/Minimal: Yes Normal/Baseline Respirations: Yes Active Bleeding?: No Pt Received D/C Instructions: N/A Prescriptions Given: None Specific Proced. D/C Criteria Distal Pulses Present (Cardiac: Yes Groin site assessed-Card Cath: Yes Voided Prior To Discharge: N/A Discharged Patients Adult Escort/Transportation: Yes
[2016-10-31] MEDS ORDERED: SODIUM CHLORIDE 0.9% 1000ML 250 ML IV PRN (13:25)
[2016-10-31] MEDS ORDERED: ATROPINE SULFATE 0.1 MG/ML 5ML SYR IV PRN (13:30)
[2016-10-31] MEDS ORDERED: ONDANSETRON INJ 2 MG/ML 2 ML VIAL IV PRN (13:30)
[2016-10-31] MEDS ORDERED: SODIUM CHLORIDE 0.9% 1000ML 1,000 ML IV SCH ×2 (13:30)
--- NOTE | 2016-10-31 13:32 | Cardiac Catheterization ---
Procedure Note Procedure Date Oct 31, 2016. Pre-Procedure Diagnosis Non STEMI AUC Score 9 Post-Procedure Diagnosis Mild CAD, Decreased LV Systolic Function, Normal Intracardiac Pressures Procedure(s) Performed Coronary Angiography, Left Heart Cath, LV Angiography Access Liaison Dr. Oconnor Section Beamer(s) None Estimated Blood Loss None Summary of Findings Apical ballooning syndrome Hemodynamics Rest Ao: 131/78 Final Ao: 118/61 LV: 109/26 Recommendations Medical therapy and/or Counseling Specimens None Radiation Exposure (mGy) 147 Contrast (mls) 105 Fluids (cc crystalloids) 57 Procedural Complication(s) None Disposition Drawer In [employer]/Recovery ACC Data Cardiac Status Clinical evaluation leading to the procedure CAD Presntation: Non STEMI Anginal Classification: CCS I Heart Failure: No Cardiogenic Shock w/in 24Hrs: No Cardiac Arrest w/in 24Hrs: No Imaging studies past 6 months: Yes Stress studies past 6 months: No Standard Exercise Stress Test: No Stress Echocardiogram: No Stress Testing w/SPECT MPI: No Cardiac CTA: No Coronary Anatomy Dominant: Right Left Main (% Stenosis): Normal LAD (% Stenosis): Proximal (30) D1 (% Stenosis): Ostial (95) Circumflex (% Stenosis): Normal RCA (% Stenosis): Normal Left Ventricular Angiography EF (%): 40 Wall Motion: Apical (Hypokinetic), Anterior (Hypokinetic) Mitral Regurgitation: None Aortography Aortic Regurgitation: None Diagnostic Status: Urgent Closure Device Percutaneous Entry Location: Femoral Recommendations: Medical therapy and/or Counseling
--- NOTE | 2016-10-31 13:35 | Cardiac Catheterization ---
Procedure Note Procedure Date Oct 31, 2016. Pre-Procedure Diagnosis Non STEMI, Cardiomyopathy AUC Score 7 Post-Procedure Diagnosis Moderate CAD Procedure(s) Performed Fractional Flow [place] Folding Machine Setter Dr. Bajwa Library Science Professor(s) Ayo Estimated Blood Loss 20 Medication(s) Atropine, Heparin Summary of Findings For full details of patients cardiac catheterization please see report dictated by Dr. Oconnor In brief patient noted to have a moderate, hazy proximal LAD lesion. FFR undertaken to assess hemodynamic significance. Access: 5Fr Right Femoral Artery Guide: 5Fr JL4 Procedure: FFR wire normalized in left main. FFR wire placed into distal mid-LAD iFR 0.93 FFR 0.83 Post procedure angiography showed no new stenosis, dissections or perforations. Right femoral artery without significant disease Femoral artery closed with Mynx closure device. Summary: 1. Moderate coronary artery disease. - proximal LAD - negative by FFR for flow-limiting disease. Recommendations: Continue medical management per Dr. Oconnor Hemodynamics Rest Ao: 131/78/101 Final Ao: 96/60/77 LV: 109/26 Recommendations Medical therapy and/or Counseling Specimens None Radiation Exposure (mGy) 2409 Contrast (mls) 170 Fluids (cc crystalloids) 110 Drains moderate Anesthesia none Procedural Complication(s) None Disposition PCU ACC Data Cardiac Status Clinical evaluation leading to the procedure CAD Presntation: Non STEMI Anginal Classification: CCS IV Heart Failure: No, NYHA Class: CCS I Cardiogenic Shock w/in 24Hrs: No Cardiac Arrest w/in 24Hrs: No Imaging studies past 6 months: Yes Stress studies past 6 months: No Standard Exercise Stress Test: No Stress Echocardiogram: No Stress Testing w/SPECT MPI: No Cardiac CTA: No Coronary Anatomy Dominant: Right LAD (% Stenosis): Proximal (60) Diagnostic Physician's Name: Danyel Bajwa MD Status: Elective Closure Device Percutaneous Entry Location: Femoral Closure Device: Mynx Recommendations: Medical therapy and/or Counseling Intraprocedure Events Significant Dissection: No Perforation: No
[2016-10-31] MEDS ORDERED: CLOPIDOGREL BISULFATE 75 MG TAB PO ONE (14:00)
--- NOTE | 2016-10-31 14:10 | PROGRESS NOTE ---
DATE: 10/31/2016 SUBJECTIVE: This morning, the patient underwent a cardiac catheterization. That study revealed approximately 30% long area of stenosis in the LAD as well as an ostial stenosis in a small first diagonal branch in the same area. Fractional flow wire was performed and indicated that this was not hemodynamically significant. The remainder of the coronary anatomy was normal. LV gram was consistent with apical ballooning syndrome. At this point, the plan will be to treat the patient medically. I discussed the results of the cardiac catheterization with the patient and her . I have also asked psychiatry to see her in regard to her medications and her passing out spells, which occur according to patient, 2-3 times per week. This may be related to the prazosin, which she was recently started on for nightmares with titration of the dose. I am also concerned that she may be experiencing cardiac arrhythmias given her recent cardiac events; however, she has not had any significant cardiac arrhythmias that would explain her syncope on the telemetry since her hospital admission. Her blood pressure will not tolerate a beta lucia at this time. She was taking lisinopril 2.5 mg at home and that was continued here in the hospital. In addition to aspirin, I will put her on Plavix for a short course of time.
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
[2016-10-31] MEDS: ASPIRIN 81 MG ECTAB PO SCH (19:50)
[2016-10-31] MEDS: SIMVASTATIN 20 MG TAB PO SCH (19:50)
[2016-10-31] MEDS: TOPIRAMATE 50 MG TAB PO SCH (19:51)
[2016-10-31] MEDS: PRAZOSIN HCL 1 MG CAP PO SCH (19:52)
[2016-11-01] VITALS (10 sets, daily range): BP systolic 96–120; BP diastolic 58–73; PULSE 63–96; TEMP 36.8–37; O2SAT 94–100
[2016-11-01] MEDS: SODIUM CHLORIDE 0.9% 1000ML 1,000 ML IV SCH (03:07)
[2016-11-01 06:44] LABS: HEMATOCRIT 30.2 % (37-47); MEAN CELL VOLUME 84.1 fL (80-100); MEAN CORPUSCULAR HEMOGLOBIN 28.1 pg (25-34); MEAN CORPUSCULAR HGB CONC 33.4 g/dl (32-36); MEAN PLATELET VOLUME 8.8 fL (7.4-10.4); PLATELET COUNT 204 K/uL (130-400); RED BLOOD COUNT 3.59 M/uL (4.2-5.4); WHITE BLOOD COUNT 6.52 K/uL (4.8-10.8)
--- NOTE | 2016-11-01 07:07 | CARDIAC CATH REPORT ---
PROCEDURES: 1. Left heart catheterization. 2. Coronary angiography. 3. Left ventriculography. HISTORY: This is a 51-year-old female who presented in 2015 with apical ballooning syndrome. At that time, she underwent a cardiac catheterization that showed minor coronary artery disease in the proximal LAD. It was described as a 30% stenosis. The patient re-presented with similar symptoms but without significant EKG changes and was admitted to the hospital. She had an elevation in her cardiac markers. She is now going to undergo cardiac catheterization for further evaluation. PROCEDURE SUMMARY: After informed consent was obtained, the patient was taken to the cardiac catheterization lab. A Barbeau maneuver was performed and did not show good collateral flow to the right hand, and therefore, the patient was prepped and draped in the usual manner for a right transfemoral approach. Pre-formed 5-St Lucian diagnostic catheters were utilized for the coronary angiograms. A 5-St Lucian pigtail catheter was utilized for left ventriculogram. Following the procedure, the patient had a fractional flow wire study performed by interventional cardiology and then was returned to her room in stable condition. CORONARY ANGIOGRAPHY: Selective injections of the left coronary artery revealed the left main trunk to be short and widely patent. The LAD has a long segment of approximately 30-40% stenosis in its proximal segment, involving a small first diagonal branch. The diagonal branch has an ostial stenosis of 90%. The remainder of the LAD including the second diagonal branch is widely patent. The left circumflex artery consists principally of a large lateral marginal branch. The left circumflex artery is widely patent. Selective injections of the right coronary artery reveal it to be dominant. The right coronary artery is widely patent. LEFT VENTRICULOGRAM: The left ventricle was of normal size. There is severe hypokinesis of the anterior and apical myocardium consistent with apical ballooning syndrome. The mitral valve is competent. The aortic root and ascending aorta have normal morphology and diameter. SUMMARY: The patient has mild to moderate proximal LAD disease. In the apical-cranial projection, there is a suggestion that the LAD stenosis may have a napkin ring effect and is not well visualized with angiography. The patient will, therefore, have a fractional flow wire study performed by interventional cardiology. If that study is negative, then she will be treated for apical ballooning syndrome.
[2016-11-01 07:24] LABS: BUN/CREATININE RATIO 16.7 (10-20); CREATININE 1.1 mg/dl (0.60-1.20); POTASSIUM 4.4 mmol/L (3.5-5.1)
[2016-11-01] MEDS: LISINOPRIL 2.5 MG TAB PO SCH (07:44)
[2016-11-01] MEDS: CLOPIDOGREL BISULFATE 75 MG TAB PO SCH (07:44)
[2016-11-01] MEDS: SERTRALINE HCL 100 MG TAB PO SCH ×2 (07:44→14:04)
[2016-11-01] MEDS: CLONAZEPAM 0.5 MG TAB PO SCH ×3 (07:49→21:01)
--- NOTE | 2016-11-01 09:15 | Progress Note ---
Internal Med Progress Note Date of Service: Nov 01, 2016. Provider Documentation: SUBJECTIVE: Patient is seen and examined at bedside. Denies any chest pain, dizziness, SOB. OBJECTIVE: Vital Signs-as noted below Physical Exam: General Appearance:Moderately built and nourished, no apparent distress Head: normocephalic, Atraumatic Eyes: normal inspection, EOMI, PERRLA Neck: supple, no JVD, Trachea midline Respiratory/Chest: Normal breath sounds, CTA, No accessory muscle use Cardiovascular: S1, S2, + murmur Abdomen/GI:Soft, Non tender, Bowel sounds present Extremities/Musculoskelatal:normal inspection, Trace edema Neurologic/Psych:AAOX3, grossly no focal neurological deficits Skin: normal color, warm Lab data as noted below. ASSESSMENT & PLAN: APICAL BALLOONING SYNDROME: NSTEMI : H/O takotsubo cardiomyopathy 2014. S/P Cardiac Cath on 10/31/16: 30% proximal LAD lesion. Fractional flow wire study:Not Hemodynamically significant LV gram was consistent with apical ballooning syndrome EKG- no sings of ischemia, Trop- 0.066, 0.065, 0.048 Telemetry: No arrhythmia noted Continue with Aspirin, plavix, Lisinopril. Can not tolerate BB secondary to hypotension ECHO:Anterior/Apical/Septal hypokinesis with EF 65-70% , d dimer- negative Cardiology following MULTIPLE EPISODES OF SYNCOPE: Per : few syncopal episodes over the past few weeks and patient gets agitated prior to syncopal episodes Likely related to psych meds Telemetry: No arrhythmias Appreciated Psychiatry input Held spironolactone for now secondary to relative hypotension Orthostatics: Negative Prazosin decreased her dose to 8mg QHS ANXIETY / DEPRESSION / POSTTRAUMATIC STRESS DISORDER Continue home meds per psychiatry ADHD Hold amphetamine-dextroamphetamine till completion of cardiac work up DVT Px SQ enoxaparin. DISPOSITION Plan to discharge to home Family Medicine follow-up with Dr. Fuller. Cardiology follow-up with Dr. Jewell. Vital Signs: Date Time Temp Pulse Resp B/P Pulse Ox O2 Delivery O2 Flow Rate FiO2 11/01/16 08:50 Room Air 11/01/16 07:44 36.8 63 16 96/60 98 Room Air 11/01/16 04:00 36.8 72 16 96/58 97 Room Air 11/01/16 04:00 97 Room Air 11/01/16 00:00 97 Room Air 10/31/16 23:24 36.7 80 20 96/60 97 Room Air 10/31/16 21:10 36.9 84 22 112/72 94 Room Air 10/31/16 20:00 98 Room Air 10/31/16 18:52 36.6 73 20 99/62 98 Room Air 10/31/16 18:52 36.6 73 20 99/62 98 Room Air 10/31/16 17:15 77 15 118/74 99 Room Air 10/31/16 16:15 79 17 107/64 99 Room Air 10/31/16 16:00 95 Room Air 10/31/16 15:32 36.8 67 20 96/62 98 Room Air 10/31/16 15:15 71 18 101/64 98 Room Air 10/31/16 14:45 74 17 99/64 98 Room Air 10/31/16 14:15 68 18 113/77 100 Room Air 10/31/16 14:00 67 17 113/77 99 Room Air 10/31/16 13:45 37.1 63 17 113/70 99 Room Air 10/31/16 13:30 65 17 104/68 94 Room Air 10/31/16 13:29 38.2 69 18 119/68 10/31/16 12:00 96 Room Air Lab Results: Results Past 24 Hours Test 10/31/16 12:49 11/01/16 06:26 Range/Units Kaolin Activated Coagulation Time 219 94-140 SECONDS White Blood Count 6.52 4.8-10.8 K/uL Red Blood Count 3.59 4.2-5.4 M/uL Hemoglobin 10.1 12.0-16.0 g/dL Hematocrit 30.2 37-47 % Mean Corpuscular Volume 84.1 80-100 fL Mean Corpuscular Hemoglobin 28.1 25-34 pg Mean Corpuscular Hemoglobin Concent 33.4 32-36 g/dl RDW Standard Deviation 39.8 36.4-46.3 fL RDW Coefficient of Variation 13.0 11.5-14.5 % Platelet Count 204 130-400 K/uL Mean Platelet Volume 8.8 7.4-10.4 fL Sodium Level 143 136-145 mmol/L Potassium Level 4.4 3.5-5.1 mmol/L Chloride Level 110 98-107 mmol/L Carbon Dioxide Level 25 21-32 mmol/L Anion Gap 8.0 3-11 mmol/L Blood Urea Nitrogen 18 7-18 mg/dl Creatinine 1.10 0.60-1.20 mg/dl Est Creatinine Clear Calc Drug Dose 61.3 ml/min Estimated GFR () 66.4 Estimated GFR (Non- 57.3 BUN/Creatinine Ratio 16.7 10-20 Random Glucose 91 70-99 mg/dl Calcium Level 8.0 8.5-10.1 mg/dl
--- NOTE | 2016-11-01 12:45 | PROGRESS NOTE ---
DATE: 11/01/2016 FOLLOWUP VISIT HISTORY OF PRESENT ILLNESS: The patient is a 51-year-old female who has a history of Takotsubo stress cardiomyopathy. She recovered from 1 event in 2014. She presented with chest discomfort and symptoms suggesting a reoccurrence and an echocardiogram revealed wall motion abnormalities consistent with apical ballooning syndrome. The patient underwent a cardiac catheterization yesterday. That cardiac catheterization is unchanged from the previous completed in 2015. She does have minor coronary artery disease in the proximal LAD and a fractional flow wire was utilized to check the hemodynamic significance and it was a negative study. She had an uneventful night. She has no complaints today. Of note, is that she has been passing out at home, and I believe that this is due to medications. It is a combination of the prazosin for which she takes for night terrors, and spironolactone which she was taking for some skin problems related to menopause. I have asked her not to restart the spirolactone, as she runs a low blood pressure and the diuresis from the spirolactone may be contributing to her syncope. Psychiatry's note was appreciated and they will decrease the prazosin and hopefully this will help. I have reviewed her entire telemetry since admission and she has had no cardiac arrhythmias. I am going discontinue the Plavix, as well as her IV fluid today. I have asked that she ambulate in the hallway today and if she is feeling well enough we can consider discharge tomorrow. Of note, is that her blood pressure will not tolerate a beta lucia. She is on a small dose of lisinopril, which I think we should continue. OBJECTIVE: VITAL SIGNS: Blood pressure is 96/60, pulse is regular at 60 beats per minute. GENERAL: She is afebrile. HEENT: She is normocephalic. Pupils are equal and reactive to light. Extraocular muscles are intact bilaterally. NECK: The neck veins are flat. Carotids have good upstrokes bilaterally without bruits. Thyroid is nonpalpable. RESPIRATORY: Breath sounds equal bilaterally and clear to auscultation. CARDIOVASCULAR: Heart has a regular rhythm. Normal S1, S2. No S3, S4. No cardiac rubs or murmurs. GASTROINTESTINAL: Abdomen is soft, nontender without organomegaly. EXTREMITIES: Free of edema, digit clubbing, or cyanosis. NEUROLOGIC: Grossly intact. SKIN: Warm to touch. LYMPH NODES: Negative to palpation. LABORATORY DATA: Hemoglobin is 10.1. Potassium is 4.4, creatinine is 1.1. IMPRESSION: 1. Takotsubo syndrome. 2. Post-traumatic stress disorder, anxiety disorder. RECOMMENDATIONS: As outlined above, the patient's prazosin dose was decreased and she has not been taking her spirolactone during this admission and should not take it after discharge. I will discontinue her IV fluids today. She will ambulate in the [place] and we will see how she does clinically.
[2016-11-01] MEDS: TOPIRAMATE 50 MG TAB PO SCH (21:01)
[2016-11-01] MEDS: SIMVASTATIN 20 MG TAB PO SCH (21:01)
[2016-11-01] MEDS: PRAZOSIN HCL 1 MG CAP PO SCH (21:02)
[2016-11-01] MEDS: ASPIRIN 81 MG ECTAB PO SCH (21:02)
[2016-11-02 00:01] VITALS: O2SAT 96
[2016-11-02 03:46] VITALS: BP 94/65; PULSE 72; TEMP 36.5; O2SAT 95
[2016-11-02 04:02] VITALS: O2SAT 96
[2016-11-02 07:05] VITALS: BP 100/68; PULSE 75; TEMP 37.1; O2SAT 98
[2016-11-02 07:29] LABS: HEMATOCRIT 32.6 % (37-47); MEAN CELL VOLUME 86.5 fL (80-100); MEAN CORPUSCULAR HEMOGLOBIN 27.9 pg (25-34); MEAN CORPUSCULAR HGB CONC 32.2 g/dl (32-36); MEAN PLATELET VOLUME 9.4 fL (7.4-10.4); PLATELET COUNT 221 K/uL (130-400); RED BLOOD COUNT 3.77 M/uL (4.2-5.4); WHITE BLOOD COUNT 7.71 K/uL (4.8-10.8)
[2016-11-02 08:11] LABS: BUN/CREATININE RATIO 17.3 (10-20); CALCIUM 7.9 mg/dl (8.5-10.1); CREATININE 1.1 mg/dl (0.60-1.20); POTASSIUM 3.9 mmol/L (3.5-5.1)
[2016-11-02] MEDS: SERTRALINE HCL 100 MG TAB PO SCH ×2 (08:38→13:29)
[2016-11-02] MEDS: CLOPIDOGREL BISULFATE 75 MG TAB PO SCH (08:38)
[2016-11-02] MEDS: CLONAZEPAM 0.5 MG TAB PO SCH ×2 (08:38→13:30)
[2016-11-02] MEDS: LISINOPRIL 2.5 MG TAB PO SCH (08:39)
--- NOTE | 2016-11-02 09:29 | Progress Note ---
Internal Med Progress Note Date of Service: Nov 02, 2016. Provider Documentation: SUBJECTIVE: Patient is seen and examined at bedside. Feels well. Denies any chest pain, dizziness, SOB. Family at bedside. OBJECTIVE: Vital Signs-as noted below Physical Exam: General Appearance:Moderately built and nourished, no apparent distress Head: normocephalic, Atraumatic Eyes: normal inspection, EOMI, PERRLA Neck: supple, no JVD, Trachea midline Respiratory/Chest: Normal breath sounds, CTA, No accessory muscle use Cardiovascular: S1, S2, + murmur Abdomen/GI:Soft, Non tender, Bowel sounds present Extremities/Musculoskelatal:normal inspection, Trace edema Neurologic/Psych:AAOX3, grossly no focal neurological deficits Skin: normal color, warm Lab data as noted below. ASSESSMENT & PLAN: APICAL BALLOONING SYNDROME/TAKOTSUBO SYNDROME: H/O takotsubo cardiomyopathy 2014. S/P Cardiac Cath on 10/31/16: 30% proximal LAD lesion. Fractional flow wire study:Not Hemodynamically significant LV gram was consistent with apical ballooning syndrome EKG- no sings of ischemia, Trop- 0.066, 0.065, 0.048 Telemetry: No arrhythmia noted during hospitalization Continue with Aspirin, Lisinopril. Can not tolerate BB secondary to hypotension ECHO:Anterior/Apical/Septal hypokinesis with EF 65-70% , d dimer- negative Plavix, Spironolactone discontinued per cardiology recommendation Appreciate Cardiology input MULTIPLE EPISODES OF SYNCOPE: Per : few syncopal episodes over the past few weeks and patient gets agitated prior to syncopal episodes Likely related to psych meds Telemetry: No arrhythmias Appreciated Psychiatry input Discontinued spironolactone secondary to relative hypotension Orthostatics: Negative Prazosin decreased her dose to 8mg QHS ANXIETY / DEPRESSION / POSTTRAUMATIC STRESS DISORDER Continue home meds per psychiatry ADHD Resume amphetamine-dextroamphetamine DVT Px SQ enoxaparin. DISPOSITION Plan to discharge home today once cleared by cardiology Family Medicine follow-up with Dr. Fuller on Nov 11 at 11:30AM Cardiology follow-up with Dr. Jewell on Nov 07 at 7:45AM Cardiac rehab Vital Signs: Date Time Temp Pulse Resp B/P Pulse Ox O2 Delivery O2 Flow Rate FiO2 11/02/16 12:00 Room Air 11/02/16 11:08 37.2 68 16 110/63 97 Room Air 11/02/16 10:12 Room Air 11/02/16 08:00 Room Air 11/02/16 07:05 37.1 75 16 100/68 98 Room Air 11/02/16 04:02 96 Room Air 11/02/16 03:46 36.5 72 16 94/65 95 Room Air 11/02/16 00:01 96 Room Air 11/01/16 23:50 36.8 96 16 100/61 96 Room Air 11/01/16 20:08 100 Room Air 11/01/16 19:28 36.9 78 20 109/70 100 Room Air 11/01/16 16:27 37.0 67 18 105/68 100 Room Air 11/01/16 16:00 100 Room Air Lab Results: Results Past 24 Hours Test 11/02/16 06:53 Range/Units White Blood Count 7.71 4.8-10.8 K/uL Red Blood Count 3.77 4.2-5.4 M/uL Hemoglobin 10.5 12.0-16.0 g/dL Hematocrit 32.6 37-47 % Mean Corpuscular Volume 86.5 80-100 fL Mean Corpuscular Hemoglobin 27.9 25-34 pg Mean Corpuscular Hemoglobin Concent 32.2 32-36 g/dl RDW Standard Deviation 41.9 36.4-46.3 fL RDW Coefficient of Variation 13.2 11.5-14.5 % Platelet Count 221 130-400 K/uL Mean Platelet Volume 9.4 7.4-10.4 fL Sodium Level 143 136-145 mmol/L Potassium Level 3.9 3.5-5.1 mmol/L Chloride Level 109 98-107 mmol/L Carbon Dioxide Level 25 21-32 mmol/L Anion Gap 9.0 3-11 mmol/L Blood Urea Nitrogen 19 7-18 mg/dl Creatinine 1.10 0.60-1.20 mg/dl Est Creatinine Clear Calc Drug Dose 60.5 ml/min Estimated GFR () 66.4 Estimated GFR (Non- 57.3 BUN/Creatinine Ratio 17.3 10-20 Random Glucose 94 70-99 mg/dl Calcium Level 7.9 8.5-10.1 mg/dl
[2016-11-02 11:08] VITALS: BP 110/63; PULSE 68; TEMP 37.2; O2SAT 97
[2016-11-02] MEDS ORDERED: PRZ1 PO (14:48)
--- NOTE | 2016-11-02 14:53 | Discharge Summary ---
Discharge Summary Admission Date: Oct 29, 2016 at 19:26 Discharge Date: Nov 02, 2016 Discharge Disposition: Home Principal Diagnosis: Takotsubo Cardiomyopathy Procedures: CXR: No active disease in the chest S/P Cardiac Cath on 10/31/16 Summary: patient has mild to moderate proximal LAD disease. In the apical-cranial projection, there is a suggestion that the LAD stenosis may have a napkin ring effect and is not well visualized with angiography. The patient will, therefore, have a fractional flow wire study performed by interventional cardiology. If that study is negative, then she will be treated for apical ballooning syndrome. ECHO: * The left ventricle is normal in size. * There is moderate anterior wall hypokinesis. * There is moderate apical wall hypokinesis. * There is moderate septal hypokinesis. * Ejection Fraction = 60-65%. Compared to prior study, changes are noted. Consultations: Cardiology Pending Studies/Follow-Up: Follow up with Dr. Fuller on Nov 11 at 11:30AM Follow up with Cardiology with Dr. Jewell on Nov 07 at 7:45AM Cardiac rehab Medication Reconciliation New Medications: Prazosin HCl (Prazosin HCl) 1 Mg Cap 8 MG PO HS for 30 Days, #60 CAP Take 8mg by mouth at bedtime daily (Take 5mg Cap at home and [id number] cap daily) Continued Medications: Amphetamine-Dextroamphetamine 20MG (Adderall 20MG) 1 Tab Tab 20 MG PO BID Aspirin (Ecotrin Low Strength) 81 Mg Tab 81 MG PO HS, TAB 3 Refills Bupropion (Wellbutrin) 100 Mg Tab 200 MG PO QAM Bupropion (Wellbutrin) 100 Mg Tab 100 MG PO QPM Clonazepam (Klonopin) 0.5 Mg Tab 0.5 MG PO TID Clonazepam (Klonopin) 0.5 Mg Tab 0.5 MG PO DAILY PRN for Anxiety, TAB Ergocalciferol (Vitamin D 68511 Unit) 50,000 Unit Cap 13982 UNIT PO WK, CAP Lisinopril (Lisinopril) 2.5 Mg Tab 2.5 MG PO QAM, #30 TAB Metformin Hcl (Glucophage) 500 Mg Tab 500 MG PO BID Nitroglycerin (Nitrostat) 0.4 Mg/1 Tab Subl 0.4 MG SL UD PRN for Chest Pain, #30 Sertraline HCl (Sertraline HCl) 100 Mg Tab 100 MG PO BID, #180 Simvastatin (Zocor) 20 Mg Tab 20 MG PO HS, TAB Topiramate (Topamax) 50 Mg Tab 50 MG PO HS Tretinoin (Tretinoin) 0.1 % Cre 1 APPLN TOP HS, 2 Refills Discontinued Medications: Prazosin Hcl (Prazosin) 5 Mg Cap 10 MG PO HS Spironolactone (Spironolactone) 100 Mg Tab 100 MG PO BID, #180 Admission Information HPI (per Admitting provider): 51 YO female followed by Dr. Fuller for Family Medicine; to see Dr. Jewell to get established for Cardiology care in about 2 weeks. Admitted for chest pain in 2015. Cardiac cath revealed only mild coronary artery disease (30% proximal LAD). Ventriculogram and echo consistent with takotsubo cardiomyopathy. Patient had been under significant emotional stress at that time. She was treated medically, did well, and reports that follow-up echocardiogram showed resolution of wall motion abnormalities; subsequently weaned off most cardiac meds. Developed mid-sternal chest pressure and dyspnea about 3 days ago. The chest pressure has been constant, nonradiating. She rates the pain as 5/10. No associated nausea or vomiting. Tried nitroglycerin on 3 occasions without any relief. She is physically active and works out 3 times a week, but has noted dyspnea walking up stairs and was unable to complete her usual gym routine yesterday. No fever. She has a mild nonproductive cough which seems to be residual from a respiratory illness about 2-3 weeks ago. Had a syncopal episode last evening, preceded by lightheadedness and diaphoresis. No associated palpitations, seizure activity, tongue biting, incontinence, postictal confusion. reports that she was unresponsive for about 15 seconds. 2 or 3 similar syncopal episodes over the past few weeks. She has had ongoing emotional stress over past few years with associated posttraumatic stress disorder. No new / acute stressors. . Physical Exam (per Admitting): General Appearance: WD/WN, no apparent distress Head: normocephalic, atraumatic Eyes: normal inspection, PERRL, EOMI, sclerae normal ENT: normal ENT inspection, hearing grossly normal, pharynx normal Neck: supple, no adenopathy, thyroid normal, no JVD, trachea midline Respiratory/Chest: lungs clear, no respiratory distress, no accessory muscle use Cardiovascular: regular rate, rhythm, no edema, no gallop, no JVD, + systolic murmur (II/ systolic murmur at base) Abdomen/GI: normal bowel sounds, non tender, soft, no organomegaly Extremities/Musculoskelatal: normal inspection, no calf tenderness, no pedal edema 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 S/P Cardiac Cath on 10/31/16: 30% proximal LAD lesion. Fractional flow wire study:Not Hemodynamically significant LV gram was consistent with apical ballooning syndrome EKG- no sings of ischemia, Trop- 0.066, 0.065, 0.048 Telemetry: No arrhythmia noted during hospitalization Continue with Aspirin, Lisinopril. Can not tolerate BB secondary to hypotension ECHO:Anterior/Apical/Septal hypokinesis with EF 65-70% , d dimer- negative Plavix, Spironolactone discontinued per cardiology recommendation Appreciate Cardiology input MULTIPLE EPISODES OF SYNCOPE: Per : few syncopal episodes over the past few weeks and patient gets agitated prior to syncopal episodes Likely related to psych meds Telemetry: No arrhythmias Appreciated Psychiatry input Discontinued spironolactone secondary to relative hypotension Orthostatics: Negative Prazosin decreased her dose to 8mg QHS ANXIETY / DEPRESSION / POSTTRAUMATIC STRESS DISORDER Continue home meds per psychiatry ADHD Resume amphetamine-dextroamphetamine DVT Px SQ enoxaparin. DISPOSITION Plan to discharge home today once cleared by cardiology Family Medicine follow-up with Dr. Fuller on Nov 11 at 11:30AM Cardiology follow-up with Dr. Jewell on Nov 07 at 7:45AM Cardiac rehab Total time spent on discharge = This includes examination of the patient, discharge planning, medication reconciliation, and communication with other providers. Discharge Instructions Discharge Instructions Admission Reason for Admission: Chest Pain Discharge Discharge Diagnosis / Problem: Takotsubo Cardiomyopathy Discharge Goals Goal(s): Decrease discomfort, Improve function Activity Recommendations Activity Limitations: resume your previous activity Exercise/Sports Limitations: as tolerated . Instructions / Follow-Up Instructions / Follow-Up Follow up with Dr. Fuller on Nov 11 at 11:30AM Follow up with Cardiology with Dr. Jewell on Nov 07 at 7:45AM Cardiac rehab Take medications as prescribed. Seek immediate medical attention if your symptoms reoccur or worsen Current Hospital Diet Patient's current hospital diet: AHA Diet (Heart Healthy) Discharge Diet Recommended Diet: AHA Diet (Heart Healthy) Pending Studies Studies pending at discharge: no Laboratory Results Lipid Panel Test 10/30/16 06:40 Range/Units Triglycerides Level 89 0-150 mg/dl Cholesterol Level 159 0-200 mg/dl HDL Cholesterol 73 mg/dl Cholesterol/HDL Ratio 2.2 LDL Cholesterol, Calculated 68 mg/dl Medical Emergencies . Who to Call and When: Medical Emergencies: If at any time you feel your situation is an emergency, please call 911 immediately. . Non-Emergent Contact Non-Emergency issues call your: Primary Care Provider, Table Worker Packager Call Non-Emergent contact if: you have a fever, your pain is not controlled, your pain is worsening, you have any medication questions . . "Provider Documentation" section prepared by Nilo Albright. VTE Core Measure Inpt VTE Proph given/why not?: Enoxaparin (Lovenox)SQ
[2016-11-02 15:01] VITALS: BP 110/63; PULSE 68; TEMP 37.2; O2SAT 97
== END 2016-11-02 15:32 | disposition home or self-care (01) | DRG 287 ==
LOC: ENRESERVDT → ENRESERVTM → C.EDB 17:25 → C.2T 19:26
PROVIDERS: ADMIT Hospitalist; ATTEND Internal Medicine
PROC: 4A023N7 Measurement of Cardiac Sampling and Pressure, Left Heart, Percutaneous Approach (ICD-10-PCS; principal; 2016-10-31)
PROC: B211YZZ Fluoroscopy of Multiple Coronary Arteries using Other Contrast (ICD-10-PCS; principal; 2016-10-31)
PROC: 4A033BC Measurement of Arterial Pressure, Coronary, Percutaneous Approach (ICD-10-PCS; 2016-10-31)
DX: I51.81 Takotsubo syndrome (principal); F33.9 Major depressive disorder, recurrent, unspecified; R55 Syncope and collapse; I95.2 Hypotension due to drugs; T44.6X5A Adverse effect of alpha-adrenoreceptor antagonists, initial encounter; T50.0X5A Adverse effect of mineralocorticoids and their antagonists, initial encounter; F43.10 Post-traumatic stress disorder, unspecified; F41.9 Anxiety disorder, unspecified; I25.10 Atherosclerotic heart disease of native coronary artery without angina pectoris; E78.5 Hyperlipidemia, unspecified; E88.81 Metabolic syndrome and other insulin resistance; F90.9 Attention-deficit hyperactivity disorder, unspecified type; Z51.81 Encounter for therapeutic drug level monitoring; Z79.899 Other long term (current) drug therapy; Z79.82 Long term (current) use of aspirin

== ENCOUNTER → 2016-12-08 | Outpatient (CLI) | payer OTHER, BC ==
[~2016-12-08] MED LIST changes: -ASPEC81 PO; +ASPI-428 PO; -ERGO1CAP35 PO; +ERGO500037 PO; -PRAZ2CAP3 PO; -PRAZ5CAP2 PO; +PRZ1 PO; -SERT50TA PO; -SPIR25TA PO; +ZLF/100 PO
[2016-12-08 12:25] LABS: URINE APPEARANCE CLOUDY (CLEAR); URINE BILIRUBIN NEG (NEG); URINE COLOR DK YELLOW; URINE NITRITE POS (NEG); URINE SPECIFIC GRAVITY 1.024 (1.000-1.030); UROBILINOGEN NEG (NEG)
[2016-12-08 12:40] LABS: MANUAL MICROSCOPIC REQUIRED? NO; REVIEW REQ? YES
[2016-12-08 13:02] LABS: URINE EPITHELIAL CELL AUTO 0-5 /lpf (0-5)
== END | disposition home or self-care (01) ==
LOC: C.LAB1850 10:45
PROVIDERS: ATTEND Obstetrics & Gynecology
DX: R39.9 Unspecified symptoms and signs involving the genitourinary system (principal); N39.0 Urinary tract infection, site not specified; R30.0 Dysuria

== ENCOUNTER → 2017-01-17 | Outpatient (CLI) | payer OTHER, BC ==
[~2017-01-17] MED LIST changes: +FLUO1TAB12 PO; +PRAZ5CAP2 PO; +SPRN100 PO; +TPM100 PO
[2017-01-17 11:06] LABS: PATIENT HEIGHT 165.1 cm
--- NOTE | 2017-01-17 11:36 | DIAGNOSTIC IMAGING REPORT ---
ULTRASOUND KIDNEYS AND BLADDER CLINICAL HISTORY: Cardiomyopathy. COMPARISON STUDY: No priors. TECHNIQUE: Real-time, grayscale, and color flow sonography of the kidneys and bladder is performed. Images are reviewed in the transverse and longitudinal planes. FINDINGS: Kidneys: The kidneys are normal in size and echotexture. The right kidney measures 9.4 cm in length and the left kidney measures 9.8 cm in length. There is no hydronephrosis. No shadowing renal calculi are identified. There is no sonographic evidence of contour deforming renal mass lesion. No perinephric fluid is identified. Bladder: The bladder is normal in appearance. Bilateral ureteral jets were seen. IMPRESSION: Unremarkable sonographic assessment of the kidneys and bladder. Electronically signed by: Meet Mccullough M.D. 01/17/2017 11:35 AM Dictated Date/Time: 01/17/2017 11:34 AM
[2017-01-17 13:26] LABS: HEMATOCRIT 39.1 % (37-47); MEAN CELL VOLUME 87.3 fL (80-100); MEAN CORPUSCULAR HEMOGLOBIN 27.7 pg (25-34); MEAN CORPUSCULAR HGB CONC 31.7 g/dl (32-36); MEAN PLATELET VOLUME 9.6 fL (7.4-10.4); PLATELET COUNT 277 K/uL (130-400); RED BLOOD COUNT 4.48 M/uL (4.2-5.4); WHITE BLOOD COUNT 5.19 K/uL (4.8-10.8)
[2017-01-17 13:38] LABS: URINE APPEARANCE CLEAR (CLEAR); URINE BILIRUBIN NEG (NEG); URINE COLOR YELLOW; URINE EPITHELIAL CELL AUTO 0-5 /lpf (0-5); URINE NITRITE NEG (NEG); URINE PH 7.5 (4.5-7.5); URINE SPECIFIC GRAVITY 1.014 (1.000-1.030); UROBILINOGEN NEG (NEG)
[2017-01-17 14:05] LABS: MANUAL MICROSCOPIC REQUIRED? NO; REVIEW REQ? NO
[2017-01-17 14:33] LABS: URINE PROTIEN/CREAT RATIO 0.2 (0-0.2); URINE TOTAL PROTEIN 13.6 mg/dl (0-11.9)
[2017-01-17 14:35] LABS: URINE TOTAL PROTEIN 13.5 mg/dl (0-11.9)
[2017-01-17 14:45] LABS: BUN/CREATININE RATIO 23.6 (10-20); CALCIUM 8.7 mg/dl (8.5-10.1); CREATININE 1.1 mg/dl (0.60-1.20); POTASSIUM 4.3 mmol/L (3.5-5.1)
[2017-01-17 14:47] LABS: ALB/GLOB RATIO 1.3 (0.9-2); PHOSPHORUS 3.3 mg/dl (2.5-4.9)
[2017-01-17 15:19] LABS: CREATININE 1.1 mg/dl (0.6-1.2); URINE TOTAL PROTEIN CALC 148.5 mg/24 hr (0-149.1)
--- NOTE | 2017-01-24 09:56 | CODING QUERY MEDICAL NECESSITY ---
SUPPORTING DIAGNOSIS NEEDED Dr. Carter, A supporting diagnosis is required for the test/procedure performed on this patient in order for us to be reimbursed by the patient's insurance. Please provide a supporting diagnosis for the following test/procedure listed below next to the test name along with your signature. *If there is no additional diagnosis for this patient that would support the following test/procedure please document that below next to the test/procedure. Test(s)/Procedure(s) that require a supporting diagnosis: * ([id number]) VITAMIN D ASSAY DIAGNOSIS: DATE OF SERVICE: 01/17/17 Provider Signature: Date: Thank you Bob Monson [facility] Information Management Once completed, please kindly fax back to [phone] For questions please call [phone]
== END | disposition home or self-care (01) ==
LOC: C.ULTRBC 10:52
PROVIDERS: ATTEND Internal Medicine Nephrology
DX: I51.81 Takotsubo syndrome (principal); E55.9 Vitamin D deficiency, unspecified

== ENCOUNTER → 2017-06-02 | Outpatient (CLI) | payer OTHER, BC ==
--- NOTE | 2017-06-02 13:42 | MAMMOGRAPHY REPORT ---
BILATERAL DIGITAL SCREENING MAMMOGRAM TOMOSYNTHESIS WITH CAD: 06/02/2017 CLINICAL HISTORY: Routine screening. Patient has no complaints. TECHNIQUE: Breast tomosynthesis in addition to standard 2D mammography was performed. Current study was also evaluated with a Computer Aided Detection (CAD) system. COMPARISON: Comparison is made to exams dated: 05/31/2016 mammogram, 05/22/2014 mammogram, 05/21/2013 rowena mogram, 05/11/2012 mammogram, 05/05/2011 mammogram - [facility], and 10/21/2008. BREAST COMPOSITION: There are scattered areas of fibroglandular density in both breasts. FINDINGS: No suspicious masses, calcifications, or areas of architectural distortion are noted in ei ther breast. There has been no significant interval change compared to prior exams. Again noted are post surgical changes from bilateral reduction mammoplasty, with linear scar markers denoting scars o n bilateral anterior breasts. Right lateral breast asymmetry is stable to less prominent compared to prior exams. IMPRESSION: ACR BI-RADS CATEGORY 2: BENIGN There is no mammographic evidence of malignancy. A 1 year screening mammogram is recommended. The pa tient will receive written notification of the results. Approximately 10% of breast cancers are not detected with mammography. A negative mammographic report should not delay biopsy if a clinically suggestive mass is present. Adelina Cuba M.D. /:06/02/2017 12:33:35 Assembly Hand: Kayla Brennan, [facility] letter sent: Normal 1/2 BI-RADS Code: ACR BI-RADS Category 2: Benign
== END | disposition home or self-care (01) ==
LOC: C.MAMM 09:35
PROVIDERS: ATTEND Obstetrics & Gynecology
DX: Z12.31 Encounter for screening mammogram for malignant neoplasm of breast (principal)

== ENCOUNTER → 2017-06-19 | Outpatient (CLI) | payer OTHER, BC ==
[~2017-06-19] MED LIST changes: -FLUO1TAB12 PO; -PRAZ5CAP2 PO; -SPRN100 PO; -TPM100 PO
== END | disposition home or self-care (01) ==
LOC: C.PAPS 08:21
PROVIDERS: ATTEND Obstetrics & Gynecology
DX: Z12.4 Encounter for screening for malignant neoplasm of cervix (principal)

== ENCOUNTER → 2017-06-23 | Outpatient (CLI) | payer OTHER, BC ==
--- NOTE | 2017-06-23 17:06 | DIAGNOSTIC IMAGING REPORT ---
HEAD CT NONCONTRAST CT DOSE: 537.48 mGy.cm HISTORY: SYNCOPE AND COLLAPSE TECHNIQUE: Multiaxial CT images of the head were performed without the use of intravenous contrast. Automated exposure control was utilized for this study. A dose lowering technique was utilized adhering to the principles of ALARA. Comparison: Head CT 02/17/2016. Findings: The paranasal sinuses and mastoid air cells are clear. The calvarium and skull base are intact. The ventricles and sulci are within normal limits. There is no mass, hematoma, midline shift, or acute infarct. Impression: No acute intracranial abnormality. Electronically signed by: Roge Tong M.D. 06/23/2017 5:04 PM Dictated Date/Time: 06/23/2017 5:00 PM
== END | disposition home or self-care (01) ==
LOC: C.CTS 16:51
PROVIDERS: ATTEND Internal Medicine
DX: G44.89 Other headache syndrome (principal); M54.2 Cervicalgia; R55 Syncope and collapse; V89.2XXA Person injured in unspecified motor-vehicle accident, traffic, initial encounter

== ENCOUNTER 2017-07-02 23:18 | Observation (INO) | payer OTHER, BC ==
[~2017-07-02] VITALS: Ht 165.1 cm; Wt 75.9 kg
[2017-07-03] MEDS ORDERED: MoRPHine SULFATE 4 MG/ML 1 ML CARP\\VIAL IV STA (00:50)
[2017-07-03] MEDS ORDERED: ONDANSETRON INJ 2 MG/ML 2 ML VIAL IV STA (00:50)
--- NOTE | 2017-07-03 00:50 | EMERGENCY ROOM VISIT NOTE ---
History Report prepared by Kendy: Mark Rainey Under the Supervision of: Dr. Sherrie Romano D.O. First contact with patient: 00:14 Chief Complaint: CHEST PAIN Stated Complaint: CHEST PAIN,2 HEART ATTACKS IN PAST 14 MONTHS Nursing Triage Summary: c/o mid chest pain and headache since this morning. hx cardiomyophathy. pt took 3 nitro at home without relief. History of Present Illness The patient is a 51 year old female who presents to the Emergency Room with complaints of worsening chest pain that began this morning more than 12 hours prior to arrival. The patient states that she began to experience the pain in her chest this morning when she woke up. The pain persisted throughout the day, and began to worsen this evening. She has taken three nitroglycerin without any relief. She is also complaining of some nausea and shortness of breath. She has a history of two episodes of Takotsubo. Her current symptoms seem similar to those previous episodes, though she notes the pain in her chest is worse. She takes Lisinopril and Baby Aspirin daily. The patient also mentioned being under some increased stress lately. 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 A total of 10 systems reviewed and were otherwise negative. Past Medical & Surgical Medical Problems: (1) Attention deficit disorder with hyperactivity (2) Coronary artery disease (3) Hyperlipidemia (4) Insulin resistance (5) Major depression, recurrent (6) Posttraumatic stress disorder (7) Takotsubo cardiomyopathy Surgical Problems: (1) Status post cardiac catheterization (2) Status post tubal ligation Family History Patient reports no known family medical history. Social History Smoking Status: Never Smoker Marital Status: Housing Status: lives with family Occupation Status: unemployed Current/Historical Medications Scheduled Aspirin (Ecotrin Low Strength), 81 MG PO HS Bupropion (Wellbutrin), 200 MG PO AMPM Clonazepam (Klonopin), 0.5 MG PO TID Fluoxetine Hcl (Fluoxetine Hcl), 20 MG PO DAILY Lisinopril (Lisinopril), 2.5 MG PO QAM Metformin Hcl (Glucophage), 500 MG PO BID Prazosin Hcl (Prazosin), 5 MG PO DAILY Sertraline HCl (Sertraline HCl), 100 MG PO BID Simvastatin (Zocor), 20 MG PO HS Spironolactone (Spironolactone), 100 MG PO DAILY Topiramate (Topiramate), 100 MG PO HS Tretinoin (Tretinoin), 1 APPLN TOP HS Scheduled PRN Clonazepam (Klonopin), 0.5 MG PO DAILY PRN for Anxiety Nitroglycerin (Nitrostat), 0.4 MG SL UD PRN for Chest Pain Allergies Coded Allergies: Sulfa Antibiotics (Verified Allergy, Severe, FACIAL SWELLING, 07/03/17) Buspirone (Verified Allergy, Unknown, SUICIDAL IDEATIONS, 07/03/17) Physical Exam Vital Signs Date Time Temp Pulse Resp B/P (MAP) Pulse Ox O2 Delivery O2 Flow Rate FiO2 07/03/17 03:30 67 16 105/69 97 Room Air 07/03/17 03:00 69 17 99/60 97 Room Air 07/03/17 02:30 65 102/59 96 Room Air 07/03/17 02:00 69 19 102/62 95 Room Air 07/03/17 01:30 66 18 105/67 96 Room Air 07/03/17 01:00 67 16 104/67 96 Room Air 07/03/17 00:21 98 Room Air 07/03/17 00:15 71 07/02/17 23:28 37.1 85 20 115/77 99 Room Air Physical Exam HEENT: Head - normocephalic and atraumatic Pupils are equal, round, and reactive to light. Extraocular eye muscles are intact, and sclera are anicteric. Nose - moist nasal mucosa without discharge. Mouth - moist buccal mucosa. Oropharynx is nonerythematous and there is no tonsillar exudate or edema noted. Neck: Supple; no JVD, nuchal rigidity, cervical lymphadenopathy, or auscultated bruits. Heart: Regular rate and rhythm. There is a normal S1 and S2 with no murmurs, clicks, or gallops appreciated. Chest: There is tenderness to palpation over the left anterior chest wall. Lungs: Clear to auscultation bilaterally with no wheezes, rales, or rhonchi. Abdomen: Soft, completely nontender, nondistended, with good bowel sounds. There are no palpable pulsatile masses or hepatosplenomegaly. There is no guarding, rigidity, or rebound noted. Extremities: No evidence of cyanosis, clubbing, or edema. There are easily palpable peripheral pulses. Skin: warm and dry with good turgor and no rashes. Medical Decision & Procedures ER Provider Diagnostic Interpretation: CHEST X-RAY: No cardiomegaly, no pulmonary findings, no obvious trauma. Laboratory Results 07/03/17 00:15 Red Blood Count 4.46, Mean Corpuscular Volume 84.8, Mean Corpuscular Hemoglobin 27.8, Mean Corpuscular Hemoglobin Concent 32.8, Mean Platelet Volume 9.0, Neutrophils (%) (Auto) 43.5, Lymphocytes (%) (Auto) 41.2, Monocytes (%) (Auto) 10.1, Eosinophils (%) (Auto) 4.3, Basophils (%) (Auto) 0.6, Neutrophils # (Auto ) 2.97, Lymphocytes # (Auto) 2.81, Monocytes # (Auto) 0.69, Eosinophils # (Auto ) 0.29, Basophils # (Auto) 0.04 07/03/17 00:15 Test 07/03/17 00:15 White Blood Count 6.82 K/uL (4.8-10.8) Red Blood Count 4.46 M/uL (4.2-5.4) Hemoglobin 12.4 g/dL (12.0-16.0) Hematocrit 37.8 % (37-47) Mean Corpuscular Volume 84.8 fL (80-100) Mean Corpuscular Hemoglobin 27.8 pg (25-34) Mean Corpuscular Hemoglobin Concent 32.8 g/dl (32-36) Platelet Count 269 K/uL (130-400) Mean Platelet Volume 9.0 fL (7.4-10.4) Neutrophils (%) (Auto) 43.5 % Lymphocytes (%) (Auto) 41.2 % Monocytes (%) (Auto) 10.1 % Eosinophils (%) (Auto) 4.3 % Basophils (%) (Auto) 0.6 % Neutrophils # (Auto) 2.97 K/uL (1.4-6.5) Lymphocytes # (Auto) 2.81 K/uL (1.2-3.4) Monocytes # (Auto) 0.69 K/uL (0.11-0.59) Eosinophils # (Auto) 0.29 K/uL (0-0.5) Basophils # (Auto) 0.04 K/uL (0-0.2) RDW Standard Deviation 38.9 fL (36.4-46.3) RDW Coefficient of Variation 12.8 % (11.5-14.5) Immature Granulocyte % (Auto) 0.3 % Immature Granulocyte # (Auto) 0.02 K/uL (0.00-0.02) Anion Gap 8.0 mmol/L (3-11) Est Creatinine Clear Calc Drug Dose 61.0 ml/min Estimated GFR () 66.4 Estimated GFR (Non- 57.3 BUN/Creatinine Ratio 19.5 (10-20) Calcium Level 8.7 mg/dl (8.5-10.1) Total Creatine Kinase 99 U/L (26-192) Creatine Kinase MB < 0.5 ng/ml (0.5-3.6) Creatine Kinase MB Ratio (0-3.0) Troponin I < 0.015 ng/ml (0-0.045) Laboratory results per my review. Medications Administered Medications (Trade) Dose Ordered Sig/Zoila Route Start Time Stop Time Status Last Admin Dose Admin Morphine Sulfate (MoRPHine SULFATE INJ) 4 mg NOW STAT IV 07/03/17 00:50 07/03/17 00:51 DC 07/03/17 01:14 4 MG Ondansetron HCl (Zofran Inj) 4 mg NOW STAT IV 07/03/17 00:50 07/03/17 00:51 DC 07/03/17 01:14 4 MG Sodium Chloride 500 ml @ 50 mls/hr Q10H ONCE IV 07/03/17 03:45 07/03/17 06:16 DC 07/03/17 05:04 50 MLS/HR Procedure Medications Ordered: Zofran, Morphine ECG Indication: chest pain Rate (beats per minute): 80 Rhythm: normal sinus Findings: no acute ischemic change, no ectopy ED Course 0039: Past medical records reviewed. The patient was evaluated in room B4. A complete history and physical exam was performed. A twelve-lead EKG was obtained as described above. An IV lock was initiated and labs are drawn as above. She'll chest x-ray as described above. She rates her pain as a 03/27. 0050: Ordered Zofran 4 mg IV, Morphine Sulfate 4 mg IV. 0256: I reevaluated the patient at this time, her chest pain has improved with Morphine. 0306: I discussed the case with Dr. Natalee Brar Internal Medicine, he will evaluate the patient for further treatment. Medical Decision The patient is a 51 year old female who presents to the Emergency Department for chest pain. Differential Diagnoses include; GERD, anxiety, acute coronary syndrome, recurrent Takotsubo Laboratory Results were reviewed and show; Normal white count, normal Hemoglobin and Hematocrit, BUN 21, Creatinine 1.1, Glucose 99, and Negative cardiac enzymes. This is a 51-year-old female patient who presents to the emergency department with chest pain. The patient admits to being under increased stress because of her history of posttraumatic stress related to her job at the [employer] and the upcoming events of this week at the [employer] with [employer] playing [employer] here at home. She believes this may have triggered some of her stress. The patient's chest discomfort had resolved while here in the emergency department but I remain concerned about her symptoms especially with her history. She would require an echocardiogram to rule out a recurrent episode of Takotsubo. Medication Reconcilliation Current Medication List: was personally reviewed by me Blood Pressure Screening Patient's blood pressure: Normal blood pressure (normal per patient ) Consults Time Called: [phone] Consulting Physician: Dr. Natalee Cain Internal Medicine Returned Call: [phone] I discussed the case with Dr. Natalee Brar Internal Medicine, he will evaluate the patient for further treatment. Impression Primary Impression: Substernal chest pain Scribe Attestation The scribe's documentation has been prepared under my direction and personally reviewed by me in its entirety. I confirm that the note above accurately reflects all work, treatment, procedures, and medical decision making performed by me. Departure Information Dispostion Being Evaluated By Hospitalist Referrals Romy Fuller D.O. (PCP) Patient Instructions My [facility]
[2017-07-03 00:56] LABS: BASO % 0.6 %; BASO ABS # 0.04 K/uL (0-0.2); COMPLETE YES; EOS % 4.3 %; HEMATOCRIT 37.8 % (37-47); IG% 0.3 %; LYMPH % 41.2 %; LYMPH ABS # 2.81 K/uL (1.2-3.4); MEAN CELL VOLUME 84.8 fL (80-100); MEAN CORPUSCULAR HEMOGLOBIN 27.8 pg (25-34); MEAN CORPUSCULAR HGB CONC 32.8 g/dl (32-36); MONO % 10.1 %; NEUT % 43.5 %; PLATELET COUNT 269 K/uL (130-400); RED BLOOD COUNT 4.46 M/uL (4.2-5.4); WHITE BLOOD COUNT 6.82 K/uL (4.8-10.8)
[2017-07-03 01:19] LABS: BLOOD UREA NITROGEN 21 mg/dl (7-18); BUN/CREATININE RATIO 19.5 (10-20); CALCIUM 8.7 mg/dl (8.5-10.1); CARBON DIOXIDE 25 mmol/L (21-32); CHLORIDE 107 mmol/L (98-107); GLUCOSE 99 mg/dl (70-99); POTASSIUM 3.8 mmol/L (3.5-5.1); SODIUM 140 mmol/L (136-145)
[2017-07-03] MEDS ORDERED: FLUO1TAB12 PO (01:27)
[2017-07-03] MEDS ORDERED: SPRN100 PO (01:27)
[2017-07-03] MEDS ORDERED: PRAZ5CAP2 PO (01:28)
[2017-07-03] MEDS ORDERED: TPM100 PO (01:30)
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
[2017-07-03] MEDS ORDERED: NITROGLYCERIN 0.4 MG SL PER TAB CHARGE SL PRN (03:45)
[2017-07-03] MEDS ORDERED: ONDANSETRON INJ 2 MG/ML 2 ML VIAL IV PRN (03:45)
[2017-07-03] MEDS ORDERED: SODIUM CHLORIDE 0.9% 1000ML 500 ML IV ONE (03:45)
[2017-07-03] MEDS ORDERED: MoRPHine SULFATE 2 MG/ML CARP IV PRN (03:45)
[2017-07-03] MEDS ORDERED: ACETAMINOPHEN 325 MG TAB PO PRN (03:45)
[2017-07-03] MEDS ORDERED: DEXTROSE 50% 50 ML SYR IV PRN (04:00)
[2017-07-03] MEDS ORDERED: GLUCOSE 10 TABS/TUBE PO PRN (04:00)
[2017-07-03] MEDS ORDERED: GLUCAGON FOR INJ 1 MG VIAL SQ PRN (04:00)
[2017-07-03] MEDS ORDERED: GLUCOSE 40% GEL 15 GM TUBE PO PRN (04:00)
[2017-07-03] MEDS ORDERED: IV FLUIDS COMPLETED PRN (04:15)
[2017-07-03 04:30] VITALS: BP 100/62; PULSE 76; TEMP 36.7; O2SAT 99; Ht 165.1 cm; Wt 75.9 kg
[2017-07-03] MEDS: INSULIN ASPART 100 UNITS/ML 3 ML PEN SC SCH ×2 (07:00→11:00)
[2017-07-03 07:14] LABS: ESTIMATED AVERAGE GLUCOSE 111 mg/dl; HA1C FLAG Normal (Normal)
[2017-07-03 07:16] LABS: INR 0.9 (0.9-1.1)
--- NOTE | 2017-07-03 07:19 | DIAGNOSTIC IMAGING REPORT ---
SINGLE VIEW CHEST CLINICAL HISTORY: Atypical chest pain. FINDINGS: An AP, portable, upright chest radiograph is compared to study dated 10/29/2016 and correlated with chest CT dated 10/16/2013. The examination is degraded by portable technique and patient rotation. The cardiomediastinal silhouette is unremarkable. There is a small hiatal hernia. An accessory azygous fissure is incidentally noted. The lungs and pleural spaces are clear. No pneumothorax is seen. The bony thorax is grossly intact. IMPRESSION: 1. No acute cardiopulmonary abnormality. 2. Hiatal hernia. Electronically signed by: Meet Mccullough M.D. 07/03/2017 7:18 AM Dictated Date/Time: 07/03/2017 7:17 AM
[2017-07-03 07:38] LABS: CHOLESTEROL/HDL RATIO 2.6
[2017-07-03] MEDS ORDERED: ENOXAPARIN 40 MG/0.4 ML SYR SC SCH (08:00)
[2017-07-03 08:09] VITALS: BP 104/71; PULSE 74; TEMP 36.5; O2SAT 96
[2017-07-03] MEDS ORDERED: SERTRALINE HCL 100 MG TAB PO SCH (09:00)
[2017-07-03] MEDS ORDERED: FLUOXETINE HCL 20 MG CAP PO SCH (09:00)
[2017-07-03] MEDS ORDERED: PRAZOSIN HCL 1 MG CAP PO SCH ×2 (09:00→21:00)
[2017-07-03] MEDS ORDERED: SPIRONOLACTONE 100 MG TAB PO SCH (09:00)
[2017-07-03] MEDS ORDERED: LISINOPRIL 2.5 MG TAB PO SCH (09:00)
[2017-07-03] MEDS ORDERED: BuPROPion SR 100 MG TABCR PO SCH (09:00)
--- NOTE | 2017-07-03 09:20 | ECHOCARDIOGRAM REPORT ---
*NOTICE TO RECEIVING DEMOCRAT AGENCY This information is strictly Confidential and protected under [place] law. [place] law prohibits you from making any further disclosure of this information unless further disclosure is expressly permitted by the written consent of the person to whom it pertains or is authorized by law. A general authorization for the release of medical or other information is not sufficient for this purpose. Hospital accepts no responsibility if the information is made available to any other person, INCLUDING THE PATIENT. Interpretation Summary * Name: MARLO CESPEDES Study Date: 07/03/2017 06:45 AM BP: 100/62 mmHg * Patient Location: C.2T\S\S244\S\1 HR: 76 * : 1965 (M/d/yyyy) Gender: Female Height: 65 in * Age: 51 yrs Ethnicity: CA Weight: 171 lb * Ordering Physician: Nilo Albright * Referring Physician: Self, Referred * Performed By: Dianne Ramos RDCS * * Reason For Study: CHEST PAIN * BSA: 1.9 m2 * -- Conclusions -- * The left ventricle is normal in size. * The left ventricular wall motion is normal. * There is mild concentric left ventricular hypertrophy. * Ejection Fraction = 65-70%. * The right ventricular systolic function is normal. * The left atrial size is normal. * Right atrial size is normal. * No significant valvular pathology. Procedure Details * A contrast injection of Definity was performed to improve assessment of LV function. * Contrast was injected into an intravenous site in the right arm. * One vial of Definity ultrasound contrast was diluted in normal saline to a total volume of 10 ml. A total of '2' ml of solution was administered during imaging. * Lot # [id number] of Definity utilized for procedure. * Expiration date JUL 05. * The attending nurse who injected the contrast agent was MICHEL COBURN RN. Left Ventricle * The left ventricle is normal in size. * There is mild concentric left ventricular hypertrophy. * Ejection Fraction = 65-70%. * The left ventricular wall motion is normal. Right Ventricle * The right ventricle is normal size. * The right ventricular systolic function is normal. Atria * The left atrial size is normal. * Right atrial size is normal. * The interatrial septum is intact with no evidence for an atrial septal defect. Mitral Valve * The mitral valve anatomy is normal. * Significant mitral regurgitation is absent. Tricuspid Valve * The tricuspid valve is not well visualized, but is grossly normal. * Significant tricuspid regurgitation is absent. Aortic Valve * The aortic valve is trileaflet. * Aortic stenosis is absent. * There is no significant aortic regurgitation. Pulmonic Valve * The pulmonic valve is not well seen, but is grossly normal. * There is no significant pulmonary regurgitation. Pericardium/Pleural * There is no pericardial effusion. MMode 2D Measurements and Calculations IVSd 1.6 cm IVSs 1.9 cm LVIDd 3.1 cm LVIDs 2.1 cm LVPWd 1.4 cm LVPWs 1.8 cm IVS/LVPW 1.1 FS 31.4 % EDV(Teich) 37.1 ml ESV(Teich) 14.6 ml EF(Teich) 60.8 % EDV(cubed) 29.0 ml ESV(cubed) 9.4 ml EF(cubed) 67.7 % % IVS thick 16.7 % % LVPW thick 24.7 % LV mass(C)d 166.2 grams LV mass(C)dI 89.8 grams/m\S\2 LV mass(C)s 152.4 grams LV mass(C)sI 82.4 grams/m\S\2 SV(Teich) 22.5 ml SI(Teich) 12.2 ml/m\S\2 SV(cubed) 19.6 ml SI(cubed) 10.6 ml/m\S\2 Ao root diam 3.4 cm Ao root area 8.8 cm\S\2 LA dimension 3.0 cm LA/Ao 0.90 LVAd ap4 32.1 cm\S\2 LVLd ap4 8.5 cm EDV(MOD-sp4) 99.8 ml LVAs ap4 16.0 cm\S\2 LVLs ap4 7.1 cm ESV(MOD-sp4) 30.1 ml EF(MOD-sp4) 69.8 % LVAd ap2 31.2 cm\S\2 LVLd ap2 8.3 cm EDV(MOD-sp2) 96.2 ml LVAs ap2 17.5 cm\S\2 LVLs ap2 7.4 cm ESV(MOD-sp2) 35.3 ml EF(MOD-sp2) 63.3 % SV(MOD-sp4) 69.7 ml SI(MOD-sp4) 37.7 ml/m\S\2 SV(MOD-sp2) 60.9 ml SI(MOD-sp2) 32.9 ml/m\S\2 Doppler Measurements and Calculations MV E max alonso 89.2 cm/sec MV A max alonso 76.6 cm/sec MV E/A 1.2 MV dec time 0.23 sec Ao V2 max 110.1 cm/sec Ao max PG 4.9 mmHg Ao max PG (full) 0.34 mmHg LV V1 max PG 4.5 mmHg LV V1 max 106.2 cm/sec
[2017-07-03] MEDS ORDERED: PERFLUTREN LIPID MICROSPHERE (DEFINITY) IV ONE (09:21)
[2017-07-03] MEDS: CLONAZEPAM 0.5 MG TAB PO SCH ×2 (10:00→15:19)
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
[2017-07-03] MEDS ORDERED: NURSING VERBAL MED ORDER ONE (11:00)
[2017-07-03 11:19] VITALS: BP 99/67; PULSE 68; TEMP 36.5; O2SAT 100
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
--- NOTE | 2017-07-03 14:04 | Discharge Instructions ---
Discharge Instructions Date of Service Jul 03, 2017. Admission Reason for Admission: Chest Pain Discharge Discharge Diagnosis / Problem: Atypical chest pain Discharge Goals Goal(s): Decrease discomfort, Improve function, Improve disease control Activity Recommendations Activity Limitations: resume your previous activity (as tolerated) . Instructions / Follow-Up Instructions / Follow-Up Follow up with your primary care provider Dr. Fuller on 07/05 @ 9:30 AM Current Hospital Diet Patient's current hospital diet: Diabetes Type 2 Diet, AHA Diet (Heart Healthy) Discharge Diet Recommended Diet: Diabetes Type 2 Diet Pending Studies Studies pending at discharge: no Laboratory Results Hemoglobin A1c Test 07/03/17 06:27 Range/Units Estimated Average Glucose 111 mg/dl Hemoglobin A1c 5.5 4.5-5.6 % Lipid Panel Test 07/03/17 06:27 Range/Units Triglycerides Level 111 0-150 mg/dl Cholesterol Level 179 0-200 mg/dl HDL Cholesterol 69 mg/dl Cholesterol/HDL Ratio 2.6 LDL Cholesterol, Calculated 88 mg/dl Medical Emergencies . Who to Call and When: Medical Emergencies: If at any time you feel your situation is an emergency, please call 911 immediately. . Non-Emergent Contact Non-Emergency issues call your: Primary Care Provider Call Non-Emergent contact if: your pain is not controlled, your pain is worsening, you have any medication questions . . "Provider Documentation" section prepared by Bal Mcdonald. . VTE Core Measure Inpt VTE Proph given/why not?: Enoxaparin (Lovenox)SQ
[2017-07-03 14:56] VITALS: BP 99/67; PULSE 68; TEMP 36.5; O2SAT 100
[2017-07-03] MEDS ORDERED: SIMVASTATIN 20 MG TAB PO SCH (21:00)
[2017-07-03] MEDS ORDERED: ASPIRIN 81 MG ECTAB PO SCH (21:00)
[2017-07-03] MEDS ORDERED: TOPIRAMATE 100 MG TAB PO SCH (21:00)
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
== END 2017-07-03 16:33 | disposition home or self-care (01) ==
LOC: C.EDB 23:19 → C.2T 07-03 03:45 → ENRESERV 07-03 03:51
PROVIDERS: ADMIT Internal Medicine; ATTEND Internal Medicine
DX: R07.89 Other chest pain (principal); I51.81 Takotsubo syndrome; I25.10 Atherosclerotic heart disease of native coronary artery without angina pectoris; E78.5 Hyperlipidemia, unspecified; E88.81 Metabolic syndrome and other insulin resistance; F90.9 Attention-deficit hyperactivity disorder, unspecified type; F33.9 Major depressive disorder, recurrent, unspecified; F43.10 Post-traumatic stress disorder, unspecified; Z79.82 Long term (current) use of aspirin; Z79.84 Long term (current) use of oral hypoglycemic drugs; Z79.899 Other long term (current) drug therapy

== ENCOUNTER 2017-10-10 13:57 | Emergency (ER) | payer OTHER, BC ==
[~2017-10-10] VITALS: Ht 154.9 cm; Wt 77.0 kg
[~2017-10-10 13:57] MED LIST changes: -AMPH20TA2 PO; -ERGO500037 PO; +FLUO1TAB12 PO; +PRAZ5CAP2 PO; -PRZ1 PO; +SPRN100 PO; -TOPI50TA16 PO; +TPM100 PO
[2017-10-10 13:59] VITALS: TEMP 36.7; Ht 154.9 cm; Wt 77.0 kg
[2017-10-10 14:29] LABS: HEMATOCRIT 39.7 % (37-47); HEMOGLOBIN 12.9 g/dL (12.0-16.0); MEAN CELL VOLUME 87.4 fL (80-100); MEAN CORPUSCULAR HEMOGLOBIN 28.4 pg (25-34); MEAN CORPUSCULAR HGB CONC 32.5 g/dl (32-36); MEAN PLATELET VOLUME 9.3 fL (7.4-10.4); PLATELET COUNT 260 K/uL (130-400); RED CELL DISTRIBUTION WIDTH CV 13.2 % (11.5-14.5); RED CELL DISTRIBUTION WIDTH SD 42.6 fL (36.4-46.3); WHITE BLOOD COUNT 4.94 K/uL (4.8-10.8)
--- NOTE | 2017-10-10 14:42 | EMERGENCY ROOM VISIT NOTE ---
History First contact with patient: 14:05 Chief Complaint: CHEST PAIN Stated Complaint: CHEST PAIN, SWOLLEN LYMPH NODE Nursing Triage Summary: c/o chest pain substernal and hx of Takotsubo History of Present Illness 50F with a PMHX of Takutsubo cardiomyopathy (2014 & 2015), PTSD, HLD p/w a one week history of crushing chest pain. She states that this episode has felt exactly like her previous episode of cardiomyopathy - she feels like she is run down with a cough, almost developing a pneumonia. The chest pressure is constant, it is worse with deep breaths, it does not radiate anywhere. 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 PT also noticed a nodule on her right throat starting one week ago. Was put on Augmentin by the PA in her PCPs office. ECHO in Jun 2017 which showed an EF of 65-70%. Echo in 2015 showed no evidence of Takotsubo. ECHO in 2014 showed: 1. Normal left ventricular size and thickness. 2. Apical akinesis, consistent with Takotsubo cardiomyopathy. LVEF calculated 35-40%. 3. No significant valvular abnormalities. SHX: Not currently working. Never smoker. ROS: No swelling over her hands or feet, no dysuria, no rash, no hemoptysis, + SOB, no n,v,d. Review of Systems See HPI for pertinent positives and negatives. A total of ten systems were reviewed and were otherwise negative. Past Medical/Surgical History Medical Problems: (1) Attention deficit disorder with hyperactivity (2) Coronary artery disease (3) Hyperlipidemia (4) Insulin resistance (5) Major depression, recurrent (6) Posttraumatic stress disorder (7) Takotsubo cardiomyopathy Surgical Problems: (1) Status post cardiac catheterization (2) Status post tubal ligation Family History Patient reports no known family medical history. Social History Smoking Status: Never Smoker Drug Use: none Marital Status: Housing Status: lives with family Occupation Status: unemployed Current/Historical Medications Scheduled Aspirin (Ecotrin Low Strength), 81 MG PO HS Bupropion (Wellbutrin), 200 MG PO AMPM Clonazepam (Klonopin), 0.5 MG PO TID Fluoxetine Hcl (Fluoxetine Hcl), 20 MG PO DAILY Lisinopril (Lisinopril), 2.5 MG PO QAM Metformin Hcl (Glucophage), 500 MG PO BID Prazosin Hcl (Prazosin), 5 MG PO DAILY Sertraline HCl (Sertraline HCl), 100 MG PO BID Simvastatin (Zocor), 20 MG PO HS Spironolactone (Spironolactone), 100 MG PO DAILY Topiramate (Topiramate), 100 MG PO HS Tretinoin (Tretinoin), 1 APPLN TOP HS Scheduled PRN Clonazepam (Klonopin), 0.5 MG PO DAILY PRN for Anxiety Nitroglycerin (Nitrostat), 0.4 MG SL UD PRN for Chest Pain Physical Exam Vital Signs Date Time Temp Pulse Resp B/P (MAP) Pulse Ox O2 Delivery O2 Flow Rate FiO2 10/10/17 15:44 62 18 111/77 97 Room Air 10/10/17 14:23 76 10/10/17 13:59 36.7 64 18 144/88 100 Physical Exam Gen: No acute distress. Pt is accompanied by spouse. HEENT: Head - normocephalic and atraumatic. Pupils are equal, round, and reactive to light. Extraocular eye muscles are intact and sclera are anicteric. Ears - bilaterally patent canals with noninjected tympanic membranes and no evidence of hemotympanum. Nose - moist nasal mucosa without discharge. Mouth - moist buccal mucosa. Oropharynx is nonerythematous and there is no tonsillar exudate or edema noted. Neck: Supple; no JVD, nuchal rigidity, cervical lymphadenopathy, or auscultated bruits. 2cm hard firm mobile tender mass on the right throat. Heart: Regular rate and rhythm. There is a normal S1 and S2 with no murmurs, clicks, or gallops appreciated. Apical pulse non displaced. Chest pain was made worse by palpation of the anterior chest. Lungs: Clear to auscultation bilaterally with no wheezes, rales, or rhonchi. Abdomen: Soft, completely nontender, nondistended, with good bowel sounds. There are no palpable pulsatile masses or hepatosplenomegaly. There is no guarding, rigidity, or rebound noted. Extremities: No evidence of cyanosis, clubbing, or edema. There are easily palpable peripheral pulses. Neuro:The patient is awake and alert, oriented to day, time, and place. Muscle strength is 5/5 in all 4 extremities. The patient has equal patient transition specialist strength and equal pedal push and pull. There are no cerebellar signs. There is a slight resting tremor when the arms are extended that does not go away with pointing. Slight cogwheeling on exam bilaterally. Medical Decision & Procedures ER Provider Diagnostic Interpretation: CHEST ONE VIEW PORTABLE HISTORY: Atypical Chest Pain, h/o Takutsabo Cardiomyopathy COMPARISON: Chest 07/03/2017. FINDINGS: The lungs are clear. Cardiac silhouette is normal in size. No pleural effusions. No pneumothorax. Small hiatus hernia, unchanged. Small right azygos lobe is again noted. IMPRESSION: No significant change compared to the prior study. No acute process. Laboratory Results 10/10/17 14:20 10/10/17 14:20 Test 10/10/17 14:20 10/10/17 14:27 10/10/17 14:41 10/10/17 16:41 Red Blood Count 4.54 M/uL (4.2-5.4) Mean Corpuscular Volume 87.4 fL (80-100) Mean Corpuscular Hemoglobin 28.4 pg (25-34) Mean Corpuscular Hemoglobin Concent 32.5 g/dl (32-36) RDW Standard Deviation 42.6 fL (36.4-46.3) RDW Coefficient of Variation 13.2 % (11.5-14.5) Mean Platelet Volume 9.3 fL (7.4-10.4) Anion Gap 5.0 mmol/L (3-11) Est Creatinine Clear Calc Drug Dose 53.0 ml/min Estimated GFR () 63.1 Estimated GFR (Non- 54.5 BUN/Creatinine Ratio 18.2 (10-20) Calcium Level 9.3 mg/dl (8.5-10.1) Magnesium Level 2.1 mg/dl (1.8-2.4) Total Bilirubin 0.3 mg/dl (0.2-1) Aspartate Amino Transf (AST/SGOT) 16 U/L (15-37) Alanine Aminotransferase (ALT/SGPT) 27 U/L (12-78) Alkaline Phosphatase 70 U/L (45-117) Creatine Kinase MB < 0.5 ng/ml (0.5-3.6) Pro-B-Type Natriuretic Peptide 133 pg/ml (0-900) Total Protein 7.1 gm/dl (6.4-8.2) Albumin 3.9 gm/dl (3.4-5.0) Globulin 3.2 gm/dl (2.5-4.0) Albumin/Globulin Ratio 1.2 (0.9-2) Lipase 174 U/L (73-393) Bedside Troponin I < 0.030 ng/ml (0-0.045) Creatine Kinase MB Ratio (0-3.0) Troponin I < 0.015 ng/ml (0-0.045) Medications Administered Medications (Trade) Dose Ordered Sig/Zoila Route Start Time Stop Time Status Last Admin Dose Admin Sodium Chloride 1,000 ml @ 999 mls/hr Q1H1M IV 10/10/17 15:00 10/10/17 16:00 DC 10/10/17 15:33 999 MLS/HR Ketorolac Tromethamine (Toradol Inj) 15 mg NOW STAT IV 10/10/17 15:00 10/10/17 15:19 DC 10/10/17 15:33 15 MG Medical Decision The patient's care and disposition was discussed with Dr. Gil, Attending ED Physician. This is a 52F with chest pain. Differential diagnosis include cardiac ischemia , aortic dissection, pulmonary embolism, pneumonia, pneumothorax, musculoskeletal, infections, gastrointestinal, as well as others were entertained. Triage Nursing notes were reviewed. ED Course included an extensive history and physical exam, labs, XRAY, EKG. WBC, RBC and Platelet count was normal. CMP and Lipase WNL. Trop neg x 1, BNP WNL, CKMB WNL. XRAY did not show any bibasilar rales or cardiomegaly. EKG - NSR with normal axis, rate of 67bpm, no ST changes. Repeat Trop 2 hours afterwards was negative. 2:08pm - Seen and examined patient and orders were placed. 2:40 - Discussed the patient with Dr. Gil. 2:51- Ordered 1 L fluid, 15mg Toradol, and a BNP. 3:00 - Updated patient on results. 3:33 - Pt received a 1L NSS bolus and 15mg of Toradol. 5:40 - Pt was reassessed and informed of results. The chest pain was worsened by palpation of the anterior chest. Pt was advised that she may take Ibuprofen for the chest pain and to follow up with her egg smeller. It is unlikely that the chest pain is cardiac in nature. The pt was informed about the findings as listed above. All questions were answered. Return instructions were outlined and the patient was discharged in good condition. The patient was referred to PCP for recheck of the current condition. Impression Primary Impression: Chest wall pain Departure Information Dispostion Home / Self-Care Condition GOOD Referrals Romy Fuller D.O. (PCP) Patient Instructions Chest Pain - [facility], Ibuprofen tablets and capsules, [facility] Additional Instructions You are being diagnosed with atypical chest pain likely musculoskeletal in origin. Your cardiac workup thus far was negative. Your EKG, Troponins and other lab work was negative. You are not in heart failure. Your X-ray showed a normal sized heart. Please follow up with your PCP in one week and/or your egg smeller. Your egg smeller may wish to do further imaging of your heart. Return to the ER if you experience severe SOB with elevated pulse or worsening of your chest pain. Resident Involvement: Resident Care Provided Care Provided: Adult ED
--- NOTE | 2017-10-10 14:47 | DIAGNOSTIC IMAGING REPORT ---
CHEST ONE VIEW PORTABLE HISTORY: Atypical Chest Pain, h/o Takutsabo Cardiomyopathy COMPARISON: Chest 07/03/2017. FINDINGS: The lungs are clear. Cardiac silhouette is normal in size. No pleural effusions. No pneumothorax. Small hiatus hernia, unchanged. Small right azygos lobe is again noted. IMPRESSION: No significant change compared to the prior study. No acute process. Electronically signed by: Roge Tong M.D. 10/10/2017 2:46 PM Dictated Date/Time: 10/10/2017 2:44 PM
[2017-10-10 14:48] LABS: ALBUMIN 3.9 gm/dl (3.4-5.0); CALCIUM 9.3 mg/dl (8.5-10.1); CREATININE 1.14 mg/dl (0.60-1.20); POTASSIUM 4.2 mmol/L (3.5-5.1)
[2017-10-10 14:51] LABS: TOTAL PROTEIN 7.1 gm/dl (6.4-8.2)
[2017-10-10] MEDS ORDERED: KETOROLAC TROMETHAMINE 30 MG/ML VIAL IV STA (15:00)
[2017-10-10] MEDS ORDERED: SODIUM CHLORIDE 0.9% 1000ML 1,000 ML IV SCH (15:00)
[2017-10-10 15:19] LABS: CKMB < 0.5 ng/ml (0.5-3.6)
--- NOTE | 2017-10-10 16:34 | EMERGENCY ROOM VISIT NOTE ---
History Report prepared by Kendy: Ammon Presley Under the Supervision of: Dr. Kurt Gil M.D. First contact with patient: 16:27 Chief Complaint: CHEST PAIN Stated Complaint: CHEST PAIN, SWOLLEN LYMPH NODE Nursing Triage Summary: c/o chest pain substernal and hx of Takotsubo History of Present Illness The patient is a 52 year old female who presents to the Emergency Room with complaints of constant chest pain that began 1 week ago. She also complains of a swollen lymph node that also began 1 week ago. She denies any blood clots in her legs and lungs. She states her pain is similar to when she had pneumonia. The patient has a history of Takotsubo. Of note, Dr. Oconnor is her registered mail clerk. Pt denies LOC, headache, fevers, chills, diaphoresis, visual changes, sore throat, nausea, vomiting, abdominal pain, back pain, diarrhea, urinary symptoms , numbness, weakness, rash, or other complaints. Source of History: patient Onset: 1 week ago Position: chest Timing: constant Associated Symptoms: + chest pain, No sorethroat, No nausea, No vomiting, No diarrhea Note: Patient complains of swollen lymph node. She denies nasal congestion. Review of Systems See HPI for pertinent positives and negatives. A total of ten systems were reviewed and were otherwise negative. Past Medical & Surgical Medical Problems: (1) Attention deficit disorder with hyperactivity (2) Coronary artery disease (3) Hyperlipidemia (4) Insulin resistance (5) Major depression, recurrent (6) Posttraumatic stress disorder (7) Takotsubo cardiomyopathy Surgical Problems: (1) Status post cardiac catheterization (2) Status post tubal ligation Family History Patient reports no known family medical history. Social History Smoking Status: Never Smoker Drug Use: none Marital Status: Housing Status: lives with family Occupation Status: unemployed Current/Historical Medications Scheduled Aspirin (Ecotrin Low Strength), 81 MG PO HS Bupropion (Wellbutrin), 200 MG PO AMPM Clonazepam (Klonopin), 0.5 MG PO TID Fluoxetine Hcl (Fluoxetine Hcl), 20 MG PO DAILY Lisinopril (Lisinopril), 2.5 MG PO QAM Metformin Hcl (Glucophage), 500 MG PO BID Prazosin Hcl (Prazosin), 5 MG PO DAILY Sertraline HCl (Sertraline HCl), 100 MG PO BID Simvastatin (Zocor), 20 MG PO HS Spironolactone (Spironolactone), 100 MG PO DAILY Topiramate (Topiramate), 100 MG PO HS Tretinoin (Tretinoin), 1 APPLN TOP HS Scheduled PRN Clonazepam (Klonopin), 0.5 MG PO DAILY PRN for Anxiety Nitroglycerin (Nitrostat), 0.4 MG SL UD PRN for Chest Pain Allergies Coded Allergies: Sulfa Antibiotics (Verified Allergy, Severe, FACIAL SWELLING, 10/10/17) Buspirone (Verified Allergy, Unknown, SUICIDAL IDEATIONS, 10/10/17) Physical Exam Vital Signs Date Time Temp Pulse Resp B/P (MAP) Pulse Ox O2 Delivery O2 Flow Rate FiO2 10/10/17 17:50 62 16 106/65 98 Room Air 10/10/17 15:44 62 18 111/77 97 Room Air 10/10/17 14:23 76 10/10/17 13:59 36.7 64 18 144/88 100 Physical Exam GENERAL: Awake, alert, anxious appearing, in no distress HENT: Normocephalic, atraumatic. Oropharynx unremarkable. EYES: Normal conjunctiva. Sclera non-icteric. NECK: Supple. No nuchal rigidity. FROM. No JVD. RESPIRATORY: Clear to auscultation. CARDIAC: Regular rate, normal rhythm. Extremities warm and well perfused. Pulses equal. Mild reproducible chest pain along sternum. ABDOMEN: Soft, non-distended. No tenderness to palpation. No rebound or guarding. No masses. RECTAL: Deferred. MUSCULOSKELETAL: Chest examination reveals no tenderness. The back is symmetrical on inspection without obvious abnormality. There is no CVA tenderness to palpation. No joint edema. LOWER EXTREMITIES: Calves are equal size bilaterally and non-tender. No edema. No discoloration. NEURO: Normal sensorium. No sensory or motor deficits noted. SKIN: No rash or jaundice noted. Medical Decision & Procedures ER Provider Diagnostic Interpretation: Radiology results as stated below per my review and radiologist interpretation: CHEST ONE VIEW PORTABLE HISTORY: Atypical Chest Pain, h/o Takutsabo Cardiomyopathy COMPARISON: Chest 07/03/2017. FINDINGS: The lungs are clear. Cardiac silhouette is normal in size. No pleural effusions. No pneumothorax. Small hiatus hernia, unchanged. Small right azygos lobe is again noted. IMPRESSION: No significant change compared to the prior study. No acute process. Electronically signed by: Roge Tong M.D. 10/10/2017 2:46 PM Dictated Date/Time: 10/10/2017 2:44 PM Laboratory Results 10/10/17 14:20 10/10/17 14:20 Test 10/10/17 14:20 10/10/17 14:27 10/10/17 14:41 10/10/17 16:41 Red Blood Count 4.54 M/uL (4.2-5.4) Mean Corpuscular Volume 87.4 fL (80-100) Mean Corpuscular Hemoglobin 28.4 pg (25-34) Mean Corpuscular Hemoglobin Concent 32.5 g/dl (32-36) RDW Standard Deviation 42.6 fL (36.4-46.3) RDW Coefficient of Variation 13.2 % (11.5-14.5) Mean Platelet Volume 9.3 fL (7.4-10.4) Anion Gap 5.0 mmol/L (3-11) Est Creatinine Clear Calc Drug Dose 53.0 ml/min Estimated GFR () 63.1 Estimated GFR (Non- 54.5 BUN/Creatinine Ratio 18.2 (10-20) Calcium Level 9.3 mg/dl (8.5-10.1) Magnesium Level 2.1 mg/dl (1.8-2.4) Total Bilirubin 0.3 mg/dl (0.2-1) Aspartate Amino Transf (AST/SGOT) 16 U/L (15-37) Alanine Aminotransferase (ALT/SGPT) 27 U/L (12-78) Alkaline Phosphatase 70 U/L (45-117) Creatine Kinase MB < 0.5 ng/ml (0.5-3.6) Pro-B-Type Natriuretic Peptide 133 pg/ml (0-900) Total Protein 7.1 gm/dl (6.4-8.2) Albumin 3.9 gm/dl (3.4-5.0) Globulin 3.2 gm/dl (2.5-4.0) Albumin/Globulin Ratio 1.2 (0.9-2) Lipase 174 U/L (73-393) Bedside Troponin I < 0.030 ng/ml (0-0.045) Creatine Kinase MB Ratio (0-3.0) Troponin I < 0.015 ng/ml (0-0.045) Laboratory results reviewed by me Medications Administered Medications (Trade) Dose Ordered Sig/Zoila Route Start Time Stop Time Status Last Admin Dose Admin Sodium Chloride 1,000 ml @ 999 mls/hr Q1H1M IV 10/10/17 15:00 10/10/17 16:00 DC 10/10/17 15:33 999 MLS/HR Ketorolac Tromethamine (Toradol Inj) 15 mg NOW STAT IV 10/10/17 15:00 10/10/17 15:19 DC 10/10/17 15:33 15 MG ECG Indication: chest pain Rate (beats per minute): 67 Rhythm: normal sinus Findings: no acute ischemic change, other (Normal axis) Change: EKG interpreted by me. ED Course 1627: The patient was evaluated in room C7. A complete history and physical exam was performed. Medical Decision I reviewed the patient's past medical history, medications, and the nursing notes as described above. The patient's presentation and history were concerning for pna, bronchitis, ACS , CHF, Takotsubo's CM, PE, muscular strain among others. The patient is a 52-year-old woman with a past medical history of Takotsubo's cardiomyopathy who presents emergency Department with 1 week of constant chest pain and shortness of breath per hpi. On arrival, the patient is anxious appearing but in no acute distress, afebrile with stable vital signs. EKG is unremarkable and troponin negative in the setting of constant symptoms making ACS unlikely. Moreover no IA depressions, no ST elevations, negative Spodick's sign and pain is not positional making pericarditis not likely. Otherwise unremarkable including WBC and BNP within normal limits. Chest x-ray also unremarkable with normal mediastinum. Given the patient's prior history a delta to our troponin was sent and was also negative again suggesting unlikely have cardiac etiology at this time. Patient is not tachycardic or hypoxic making PE unlikely. On exam the patient does have reproducible tenderness along the chest wall which suggests symptoms are most likely muscular/ costochondritis. Advised to attempt trial of acetaminophen and ibuprofen. She will follow-up with her PCP and registered mail clerk. Findings and plan for follow-up reviewed with patient. Patient agreeable and d/c'd per discharge instructions. I discussed the case with the resident physician, examined the patient, and agree with the findings and plan as documented in the residents note unless otherwise clarified here by me. Medication Reconcilliation Current Medication List: was personally reviewed by me Blood Pressure Screening Patient's blood pressure: Normal blood pressure Blood pressure disposition: Did not require urgent referral Impression Primary Impression: Substernal precordial chest pain Additional Impression: Costochondritis Scribe Attestation The scribe's documentation has been prepared under my direction and personally reviewed by me in its entirety. I confirm that the note above accurately reflects all work, treatment, procedures, and medical decision making performed by me. Departure Information Dispostion Home / Self-Care Referrals Romy Fuller D.O. (PCP) Patient Instructions Chest Pain - [facility], My [facility] Additional Instructions You are being diagnosed with atypical chest pain of unknown origin. Your cardiac workup thus far was negative. Your EKG, Troponins and other lab work was negative. You are not in heart failure. Your X-ray showed a normal sized heart. Please follow up with your PCP in one week and/or your registered mail clerk. Your registered mail clerk may wish to do further imaging of your heart. Return to the ER if you experience severe SOB with elevated pulse or worsening of your chest pain. Problem Qualifiers
[2017-10-10 17:50] VITALS: BP 106/65; PULSE 62; O2SAT 98
== END 2017-10-10 18:10 | disposition home or self-care (01) ==
LOC: C.EDB 13:58 → C.EDC 18:10
DX: R07.2 Precordial pain (principal); M94.0 Chondrocostal junction syndrome [Tietze]; I51.81 Takotsubo syndrome; I25.10 Atherosclerotic heart disease of native coronary artery without angina pectoris; F90.9 Attention-deficit hyperactivity disorder, unspecified type; Z79.899 Other long term (current) drug therapy

== ENCOUNTER → 2018-04-18 | Outpatient (CLI) | payer OTHER, BC ==
[~2018-04-18] MED LIST changes: -BUPR-83 PO; +BUPR200T2 PO; -CLON0.5T3 PO; +FLUC100T4 PO; -FLUO1TAB12 PO; -GLC/500 PO; +KLN/5 PO; +LISI-789 PO; -LSN25 PO; +METF-384 PO; +NTRGSL/4 UT; -NTRSLP4 SL; +PANT1TAB3 PO; +RIZA5TAB10 PO
--- NOTE | 2018-04-18 11:38 | DIAGNOSTIC IMAGING REPORT ---
SMALL BOWEL STUDY CLINICAL HISTORY: ABD PAIN,EPIGASTRICpain. Nausea. COMPARISON STUDY: None FLUOROSCOPY TIME: 1.8 minutes. FINDINGS: Mucosal pattern and transit time throughout small bowel are unremarkable. No evidence for obstructive change. No significant bowel displacement.. Terminal ileum is unremarkable. IMPRESSION: Normal study The above report was generated using voice recognition software. It may contain grammatical, syntax or spelling errors. Electronically signed by: Stephen Soler M.D. 04/18/2018 11:36 AM Dictated Date/Time: 04/18/2018 11:36 AM
== END | disposition home or self-care (01) ==
LOC: C.RAD 09:38
PROVIDERS: ATTEND Student in an Organized Health Care Education/Training Program
DX: R10.13 Epigastric pain (principal)

== ENCOUNTER 2024-05-16 20:30 | Inpatient (IN) ==
[2024-05-16 21:02] LABS: Basophils # (auto) 0.07 K/uL (0.00-0.20); Basophils % (auto) 0.8 %; Eosinophils # (auto) 0.15 K/uL (0.00-0.50); Eosinophils % (auto) 1.7 %; Hematocrit (blood only) 37.3 % (37.0-47.0); Hemoglobin 11.7 g/dl (12.0-16.0); Immature Granulocytes # (auto) 0.02 K/uL (0.01-0.20); Immature Granulocytes % (auto) 0.2 %; Lymphocytes # (auto) 1.87 K/uL (1.20-3.40); Lymphocytes % (auto) 20.7 %; Mean Corpuscular Hemoglobin 27.5 pg (25.0-34.0); Mean Corpuscular Hgb Conc 31.4 g/dL (32.0-36.0); Mean Corpuscular Volume 87.6 fL (80.0-100.0); Mean Platelet Volume 9.2 fL (9.4-12.4); Monocytes # (auto) 1.04 K/uL (0.11-0.59); Monocytes % (auto) 11.5 %; Neutrophils # (auto) 5.88 K/uL (1.40-6.50); Neutrophils % (auto) 65.1 %; Platelet Count 270 K/uL (130-400); RDW Coefficient of Variation 12.9 % (11.5-14.5); RDW Standard Deviation 40.6 fL (36.4-46.3); Red Blood Count 4.26 M/uL (4.20-5.40); White Blood Count 9.03 K/ul (4.8-10.8)
[2024-05-16 21:24] LABS: Albumin Globulin Ratio 1.8 (0.9-2); Albumin Level 4.4 gm/dl (3.4-5.0); BUN Creatinine Ratio 22.4 (10-20); Bilirubin,Total 0.2 mg/dl (0.2-1.0); Calcium 8.9 mg/dl (8.6-10.3); Creatinine Clr Calc Pharmacy 43.8 ml/min; Est GFR (African American) 49.8 ml/min; Globulin 2.5 gm/dl (2.5-4.0); Potassium 3.7 mmol/L (3.5-5.1); Total Protein 6.9 gm/dl (6.0-8.3)
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
[2024-05-16 21:55] LABS: Troponin I High Sensitivity 922.8 pg/ml (0-14)
[2024-05-16] MEDS: ASPIRIN CHEW 324 MG PO STA (22:04)
[2024-05-16] MEDS: SODIUM CHLORIDE 0.9% 1,000 ML IV ONE (22:05)
[2024-05-16] MEDS: OPTIRAY 320 125ml IV ONE (22:12)
--- NOTE | 2024-05-16 23:18 | CT Scan Report ---
Exam(s): CTA CHEST IV Amt: 116 ml optiray 320 EXAM: CT Angiography Chest With Intravenous Contrast CLINICAL HISTORY: PE. TECHNIQUE: Axial computed tomographic angiography images of the chest with intravenous contrast. MIPS images were created and reviewed. CTDI is 30 mGy and DLP is 450.74 mGy-cm. Automated exposure control was utilized for the study. A dose lowering technique was utilized adhering to the principles of ALARA. MIP reconstructed images were created and reviewed. COMPARISON: No relevant prior studies available. FINDINGS: Pulmonary arteries: Unremarkable. No pulmonary embolus. Aorta: There is ectasia of the ascending aorta measuring 3.5 cm. Minimal atherosclerosis. No thoracic aortic aneurysm. Lungs: Unremarkable. No mass. No consolidation. Pleural space: Unremarkable. No significant effusion. No pneumothorax. Heart: Coronary artery calcifications are present. No cardiomegaly. No significant pericardial effusion. No evidence of RV dysfunction. Mediastinum: Large hiatal hernia. Bones/joints: There are degenerative changes of the spine. No acute fracture. Soft tissues: Unremarkable. Lymph nodes: Unremarkable. No enlarged lymph nodes. IMPRESSION: 1. No pulmonary embolus. 2. There is ectasia of the ascending aorta measuring 3.5 cm. 3. Large hiatal hernia. Electronically signed by: Cari Dumas MD 05/16/24 23:16 PM
[2024-05-16] MEDS: Heparin IV Adult Wt-Based Low-Dose *NO* INITIAL Bolus Protocol IV STA (23:33)
[2024-05-16] MEDS ORDERED: HEPARIN SODIUM/DEXTROSE 25,000 UNITS/500 ML BAG IV SCH (23:45)
[2024-05-17] MEDS: HEPARIN SODIUM/DEXTROSE 25,000 UNITS/500 ML BAG IV SCH (00:12)
--- OUTSIDE RECORDS SUMMARY | 2024-05-17 00:48 | External Medical Summary | Summary of Care ---
Author Name Unknown Organization [facility] Address [address] [place] [address] Phone [phone] Care Team Providers Care Remote Medical Coder Name Role Phone Arminda Simpson DO Primary Care Provider Reason for Visit * Reason Comments eRx-Medication Refill Encounter Details Date Type Department Care Team (Late st Contact Info) Description 05/12/2024 Refill Gastroenterology, [facility] [address] [address] Nicki Lopez MD [address] [place] [address] Allergies Active Allergy Reactions Criticality Noted Date Comments Buspirone Other (Please comment) 09/25/2015 Suicidal thoughts Sulfa Antibiotics Edema face/lips/tongue High 2018 documented as of this encounter (statuses as of 05/14/2024) Medications Medication Sig Dispensed Refills Start Date End Date Status sertraline (ZOLOFT) 100 MG Tablet 2 Tablets in the morning. 0 5 Active clonazePAM (KLONOPIN) 0.5 MG Tablet Take 1 Tablet by mouth in the morning and 1 Tablet before bedtime. 1 tab in am, 1 tab midday,1 at bedtime per DrAsim. 60 Tab 7 Active prazosin (MINIPRESS) 5 MG CAPS take 1 capsule by mouth at bedtime FOR NIGHTMARES 0 8 Active topiramate (TOPAMAX) 100 MG Tablet take 1 tablet by mouth at bedtime FOR NIGHTMARES 0 8 Active Spacer/Aero-Holding Chambers DEVIIndications:Inf luenza-like illness Use with inhaler. 1 Device 8 Active buPROPion HCl ER, SR, (WELLBUTRIN SR) 200 MG TB12 Take 1 Tablet by mouth in the morning and 1 Tablet before bedtime. Active acetaminophen (TYLENOL) 325 MG Tablet Take 3 Tabs by mouth every 8 hours. 30 Tab 9 Active Accu-Chek Brittney Connect w/Device Kit Use as directed. Use once daily E11.9 1 Kit 1 Active Macular Health Formula Oral Capsule 4 Capsules. Active Estradiol 0.1 MG/GM Vaginal Cream (Estrace)Indication s:Stage 3 chronic kidney disease, unspecified whether stage 3a or 3b CKD ([facility]),Recurrent UTI Administer into the vagina 0.5 g once a day Monday and only . 42.5 g 12 2 Active Tretinoin 0.01 % External Gel Apply topically to affected area daily . 45 g 2 2 Active Amphetamine-Dextroa mphetamine 20 MG Oral Tablet (Adderall) Take 1 Tablet by mouth in the morning. Active Aspirin 81 MG Oral Tablet ChewableIndications :ASCVD (arteriosclerotic cardiovascular disease) chew and swallow 1 tablet by mouth every morning with food 100 Tablet 4 Active Nurtec 75 MG Oral Tablet Disintegrating (Rimegepant Sulfate) Take 75 mg by mouth daily as needed for Migraine. Do not exceed over 18 doses in a month 18 Tablet 3 4 Active Nortriptyline HCl 10 MG Oral Capsule (Pamelor) Take 1 Capsule by mouth at bedtime. 90 Capsule 3 4 Active Baclofen 5 MG Oral Tablet (Lioresal) Take 1 Tablet by mouth at bedtime as needed for Migraine (limit 2-3 per week). 20 Tablet 3 4 Active Lisinopril 2.5 MG Oral Tablet (Prinivil)Indicatio ns:Takotsubo cardiomyopathy,Kidn ey disease, chronic, stage III (GFR 30-59 ml/min) ([facility]) Take 1 Tablet by mouth in the morning. 90 Tablet 3 4 Active Nitroglycerin 0.4 MG Sublingual Tablet Sublingual (Nitrostat)Indicati ons:Takotsubo cardiomyopathy place 1 tablet under the tongue if needed every 5 minutes for chest pain for 3 doses IF NO RELIEF AFTER THIRD DOSE CALL 911 OR GO TO EMERGENCY ROOM 25 Tablet 11 4 Active Albuterol Sulfate HFA 108 (90 Base) MCG/ACT Inhalation Aerosol SolutionIndications :Influenza-like illness Inhale 2 Puffs by mouth every 4 hours as needed for Wheezing. 18 g 3 4 Active Fluticasone Propionate 50 MCG/ACT Nasal Suspension (Flonase)Indication s:Sinus headache Administer 2 Sprays into each nostril in the morning. 16 g 10 4 Active Rizatriptan Benzoate 5 MG Oral Tablet Take 1 Tablet by mouth as needed for Migraine. May repeat in 2 hours if needed 10 Tablet 4 Active metFORMIN HCl 500 MG Oral Tablet (Glucophage)Indicat ions:Diabetes mellitus with background retinopathy (HCC) take 1 tablet by mouth every morning and evening with meals 180 Tablet 1 4 Active Spironolactone 100 MG Oral Tablet (Aldactone)Indicati ons:Kidney disease, chronic, stage III (GFR 30-59 ml/min) (HCC) Take 0.5 Tablets by mouth in the morning. 45 Tablet 3 4 Active Accu-Chek Brittney Plus In Vitro Strip (Glucose Blood) Use once daily E11.9 100 Strip 1 4 Active Accu-Chek FastClix Lancets use once daily 102 Each 1 4 Active Dicyclomine HCl 10 MG Oral Capsule (Bentyl) TAKE 1 CAPSULE BY MOUTH IN THE MORNING AND BEFORE BEDTIME 180 Capsule 4 Active Pantoprazole Sodium 40 MG Oral Tablet Delayed Release (Protonix) TAKE 1 TABLET BY MOUTH EVERY DAY IN THE MORNING 90 Tablet 4 Active Simvastatin 20 MG Oral Tablet (Zocor)Indications: Takotsubo cardiomyopathy Take 1 Tablet by mouth in the morning. 90 Tablet 4 05/14/20 24 Discontinued Pantoprazole Sodium 40 MG Oral Tablet Delayed Release (Protonix) Take 1 Tablet by mouth in the morning. 90 Tablet 4 05/14/20 24 Discontinued Dicyclomine HCl 10 MG Oral Capsule (Bentyl) Take 1 Capsule by mouth in the morning and 1 Capsule before bedtime. 180 Capsule 4 05/14/20 24 Discontinued documented as of this encounter (statuses as of 05/14/2024) Active Problems Problem Noted Date Diagnosed Date Diabetes mellitus with background retinopathy Stage 3a chronic kidney disease 07/27/2020 Overview: Per CKD protocol Major depressive disorder, r ecurrent episode, in partial remission 06/26/2020 Cardiomyopathy 06/24/2019 Lung nodule 06/20/2019 ASCVD (arteriosclerotic cardiovascular disease) 05/21/2019 Asthma in remission 05/14/2019 Fall from horse 05/13/2019 SDH (subdural hematoma) 05/13/2019 Advanced directives, counseling/discussion 03/15 History of recurrent UTI (urinary tract infectio n) 03/15/2019 Gastroesophageal reflux disease 07/14/2018 Nightmares associated with c hronic post-traumatic stress disorder 07/14/2018 Migraine variant 07/14/2018 Pure hypercholesterolemia 07/14/2018 Other irritable bowel syndrome 06/14/2018 Pancreatic cyst 06/14/2018 Chronic anxiety 06/23/2017 Takotsubo cardiomyopathy 07/07/2015 Overview: EF at disccharge was 35-45% Other acne Post traumatic stress disorder (PTSD) documented as of this encounter (statuses as of 05/14/2024) Resolved Problems Problem Noted Date Diagnosed Date Resolved Date Chronic kidney disease, stage 3 unspecified 12/03/2020 01/28/2021 Type 2 diabetes mellitus wit h chronic kidney disease 05/21/2019 05/21/2019 Prediabetes 09/14/2018 05/02/2019 Idiopathic chronic pancreatitis 06/14/2018 10/25/2023 Kidney disease, chronic, sta ge III (GFR 30-59 ml/min) 06/27/2016 07/30/2020 Overview: Per CKD protocol #1 Heart attack 09/25/2015 10/27/2015 documented as of this encounter (statuses as of 05/14/2024) Immunizations Name Administration Dates Next Due COVID-19 mRNA, LNP-s, No Pre serve, 2-Dose Series (Moderna) 06/07/2021,11/16/2020,10/18/2020 Pneumococcal Conjugate Vacci ne, 20-valent ([id number]) 06/30/2022 Pneumococcal Polysaccharide PPV23 (Pneumovax) 05/24/2018 Season Influenza, Quad, PF, Adjuvanted, 65+ Yrs, IM (FLUAD) 07/23/2020 Seasonal Influenza Virus Vac cine, Unspecified Formulation 05/31/2021,07/23/2020,06/05/2020,05/24,10/30/2016 Seasonal Influenza, PF, 6 M & above, IM , (FluLaval or Fluzone) 06/30/2022,05/24/2018 Seasonal Influenza, Split, I IV3, With Preserve, Inj 10/30/2016 TDAP (age 10 and older)(Boostrix) 12/26/2016 Zoster Vaccine Recombinant (Shingrix) 04/16/2019 ,01/17/2019 documented as of this encounter Social History Tobacco Use Types Packs/Day Years Used Date Smoking Tobacco: Never Smokeless Tobacco: Never Alcohol Use Standard Drinks/Week Comments Yes 1 (1 standard drink = 0.6 oz pur e alcohol) occational PHQ-2 Answer Date Recorded PHQ-2 Score 0 06/26/2020 Hunger Vital Sign Answer Date Recorded Within the past 12 months, y ou worried that your food would run out before you got the money to buy more. Never true 10/25/19 24 Within the past 12 months, t he food you bought just didn't last and you didn't have money to get more. Never true 10/25/2023 Childcare Answer Date Recorded Do you feel overwhelmed with taking care of a child, family member or friend? No 10/25/2023 Does your family need help f inding childcare? (Household - for ages 0-17 years) Not on file 10/25/2023 Clothing Answer Date Recorded Have you been unable to get clothing when it was really needed? No 10/25/2023 Is your family able to get c lothes or diapers when needed? (Household - for ages 0-17 years) Not on file 10/25/2023 Personal Safety Answer Date Recorded Do you feel unsafe or have concerns for your saf ety? No 10/25/2023 Do you have concerns for you r family's safety? (Household - for ages 0-17 years) Not on file 10/25/2023 Utilities Answer Date Recorded Do you have trouble paying y our heating, water, or electric bill? No 10/25/2023 Is your family able to pay t he heat, water, or electric bill? (Household - for ages 0-17 years) Not on file 10/25/2023 Does your family have access to good internet? (Household - for ages 0-17 years) Not on file 10/25/2023 Employment Status Answer Date Recorded Are you unemployed or without regular income? No 10/25/2023 Does the household have a re gular source of income? (Household - for ages 0-17 years) Not on file 10/25/2023 Social Connections Answer Date Recorded How often do you feel lonely or isolated from th ose around you? Never 10/25/2023 Financial Resource Strain Answer Date R ecorded Do you have any trouble payi ng for your medications, or do you think you might in the future? No 10/25/2023 Does your family have troubl e paying for medicine? (Household - for ages 0-17 years) Not on file 10/25/2023 Transportation Needs Answer Date Record ed READ ONLY Do you have troubl e getting a ride to medical visits or work? Never True 10/25/2023 Does your family have a hard time getting a ride to doctors visits? (Household - for ages 0-17 years) Not on file 10/25/2023 Has lack of transportation k ept you from medical appointments, meetings, work, or from getting things needed for daily living? Check all that apply. (Adult - for ages 18 years and over) Not on file 10/25/2023 Do you (or your family) have trouble finding or paying for a ride (transportation)? (Household - for ages 0-17 years) Not on file 10/25/2023 Housing Stability Answer Date Recorded Do you currently live in a s helter or have no steady place to sleep at night? No 10/25/2023 READ ONLY Do you think you a re at risk of becoming homeless? No 10/25/2023 Does your family worry about paying for your home or becoming homeless? (Household - for ages 0-17 years) Not on file 10/25/2023 Are you homeless or worried that you might be in the future? (Adult - for ages 18 years and over) Not on file Are you (or your family) carline eless or worried that you might be in the future? (Household - for ages 0-17 years) Not on file Food Insecurity Answer Date Recorded Do you need food for this week? No 10/25/2023 Are you able to get enough f ood for your family? (Household - for ages 0-17 years) Not on file 10/25/2023 Does your family need food t his week? (Household - for ages 0-17 years) Not on file 10/25/2023 Do you always have enough fo od for your family? (Household - for ages 0-17 years) Not on file 10/25/2023 Sex and Gender Information Value Date Recorded Sex Assigned at Female 06/19/2020 9:47 AM EDT Gender Identity Female 06/19/2020 9:47 AM EDT Sexual Orientation Straight 06/19/2020 9: 47 AM EDT Job Start Date Occupation Industry Not on file Not on file Not on file documented as of this encounter Functional Status Functional Status Response Date of Assess ment Are you deaf or do you have serious difficulty h earing? No 05/12/2019 Are you blind or do you have serious difficulty seeing, even when wearing glasses? No 05/12/2019 Do you have serious difficul ty walking or climbing stairs? (5 years old or older) No 05/12/2019 Do you have difficulty dress ing or bathing? (5 years old or older) No 05/12/2019 Because of a physical, menta l, or emotional condition, do you have difficulty doing errands alone such as visiting a doctor s office or shopping? (15 years old or older) No 05/12/20 19 Cognitive Status Response Date of Assessm ent Because of a physical, menta l, or emotional condition, do you have serious difficulty concentrating, remembering, or making decisions? (5 years old or older) No 05/12/2019 documented as of this encounter Miscellaneous Notes * Telephone Encounter - Nicki Lopez MD - 05/14/2024 1:07 PM EDTSigned Prescriptions: Disp Refills Dicyclomine HCl 10 MG Oral Capsule (Bentyl)180 Ca*0 Sig: TAKE 1 CAPSULE BY MOUTH IN THE MORNING AND BEFORE BEDTIME Authorizing Provider: NICKI LOPEZ Pantoprazole Sodium 40 MG Oral Tablet Tara*90 Tab*0 Sig: TAKE 1 TABLET BY MOUTH EVERY DAY IN THE MORNING Authorizing Provider: NICKI LOPEZ * Telephone Encounter - Demetra Austin coating machine operator helper - 05/14/2024 12:35 PM EDT Pending Prescriptions: Disp Refills Dicyclomine HCl 10 MG Oral Capsule [Pharma*180 Ca*0 Sig: TAKE 1 CAPSULE BY MOUTH IN THE MORNING AND BEFORE BEDTIME Pantoprazole Sodium 40 MG Oral Tablet Tara*90 Tab*0 Sig: TAKE 1 TABLET BY MOUTH EVERY DAY IN THE MORNING * Telephone Encounter - Demetra Austin coating machine operator helper - 05/14/2024 12:34 PM EDT Received message from [facility] regarding patient needing an appointment. Call Placed, Left message on voicemail to call back and schedule appointment. Thank you for your assistance Demetra Austin Aircraft Dispatcher II [facility] 05/14/2024,12:34 PM * Telephone Encounter - Abraham Gill [facility] - 05/13/2024 3:58 PM EDTPending Prescriptions: Disp Refills Dicyclomine HCl 10 MG Oral Capsule [Pharma*180 Ca*0 Sig: TAKE 1 CAPSULE BY MOUTH IN THE MORNING AND BEFORE BEDTIME Pantoprazole Sodium 40 MG Oral Tablet Tara*90 Tab*0 Sig: TAKE 1 TABLET BY MOUTH EVERY DAY IN THE MORNING * Telephone Encounter - Abraham Gill RPh - 05/13/2024 3:52 PM EDT 2nd attempt Please contact patient so that an appointment can be scheduled with her GASTROENTEROLOGY provider before this refill can be authorized. After contacting patient, please forward request to the provider they schedule with (if unable to reach, use [facility]). Last Visit: 11/03/2022 (in office), 08/26/2020 (telemedicine) Next Visit: Visit date not found Thanks, Juancarlos Gill, PharmD Clinical Pharmacist [facility] [phone] 05/13/2024 3:56 PM documented in this encounter Plan of Treatment Upcoming Encounters Date Type Department Care Team (Late st Contact Info) Description 05/16/2024 10:40 AM EDT Telemedicine Neurology [address] [place] [phone] Laith Cowan, [address] [facility] [address] [place] [address] 07/02/2024 8:00 AM EDT Office Visit Nephrology, [place] [address] [place] [id number] Kayla Cleary MD [address] [place] [address] Scheduled Procedures Name Priority Associated Diagnoses Date/Ti me COLONOSCOPY FLEXIBLE PROXIMA L DIAGNOSTIC Recall History of colonic polyps Health Maintenance Due Date Last Done Comments Cologuard 2008 Fecal Occult Blood Test 2008 Sigmoidoscopy 2008 Depression Monitoring 06/26/2021 06/26/2020 COVID-19 Vaccine ( season) 2023 06/07/2021, 11/16/2020, 10/18/2020 HbA1c 11/21/2023 05/23/2023, 06/18, 07/06/2021, Additional history exists GFR 04/25/2024 10/26/2023, 01/2023, 12/06/2021, Additional history exists Influenza Vaccine (FLU shot) (#1) 2024 06/30/2022, 05/31/2021, 05/31/2021, Additional history exists B-12 05/23/2024 05/23/2023, 06/0 09/2020, 03/15/2019 CKD HGB USE SMARTSET 17958 05/23/202405/23, 10/08/2021, 10/08/2021, Additional history exists CKD PHOS USE SMARTSET 69941 05/23/2024 09/0 01/2023, 08/30/2021, 11/12/2020, Additional history exists Diabetic Foot Exam 10/23/2024 10/23/2023, 0 12/06/2021, 12/06/2021 Albumin/Creatinine Ratio 10/26/2024 022 024, 05/23/2023, 08/30/2021, Additional history exists Diabetic Eye Exam 11/09/2024 11/09/2023, , 11/09/2023, Additional history exists Mammogram 02/21/2025 02/22/2024, 060 02/2024, 02/16/2023, Additional history exists HPV/Co-Test 07/21/2026 07/21/2021 Cervical Cancer Screening 11/14/2026 Pap Smear 11/14/2026 11/14/2023, 11/0 03/2022, 07/25/2022, Additional history exists DTap/Tdap Vaccines (2 - Td or Tdap) 12/26/2026 12/26/2016 Colonoscopy 10/16/2028 10/16/2023, 09/19, 04/13/2018, Additional history exists Colorectal Cancer Screening 10/16/2028 Zoster Vaccines Completed 04/16/2019, 01/17/2019 Pneumococcal Vaccine: Pediatrics (0 to 5 Years) and At-Risk Patients (6 to 64 Years) Completed 06/30/2022, 05/24/2018 RETIRED - COLONOSCOPY-EVERY 5 YRS AGES 18-100 Discontinued 10/16/2023, 10/16/2023, 04/13/2018, Additional history exists HPV (Gardasil) Vaccine Aged Out No lo nger eligible based on patient's age to complete this topic Hepatitis B Vaccine Aged Out No longe r eligible based on patient's age to complete this topic MENINGOCOCCAL (MENACTRA/MENVEO) Aged Out No longer eligible based on patient's age to complete this topic documented as of this encounter Medical Devices Not on filedocumented as of this encounter Advance Directives * Full Code (Latest Code Status on File) Date Activated Date Inactivated Comments 05/12/2019 10:35 PM 05/14/2019 9:00 PM This order reflects the patients wishes and were consensually agreed upon. Care Teams Remote Medical Coder Relationship Specialty Start Date End Date Arminda [place] [address] [address] [place] [address] PCP - General Family Medicine 06/15/18 documented as of this encounter
--- OUTSIDE RECORDS SUMMARY | 2024-05-17 00:48 | External Medical Summary | Summary of Care ---
Author Name Unknown Organization [facility] Address [address] [place] [address] Phone [phone] Care Team Providers Care Egg Tester Name Role Phone Kajal Simpson DO Primary Care Provider Reason for Visit * Reason Comments eRx-Medication Refill Encounter Details Date Type Department Care Team (Late st Contact Info) Description 05/12/2024 Refill Family Practice [facility] [address] [facility] [place], [place] [phone] Kajal Simpson DO [address] [place], [place] [phone] Takotsubo cardiomyopathy Allergies Active Allergy Reactions Criticality Noted Date [...] am, 1 tab midday,1 at bedtime per [place]. 60 Tab 7 Active prazosin (MINIPRESS) 5 [...] unspecified whether stage 3a or 3b CKD ([facility]),Recurrent UTI Administer into the vagina 0.5 g [...] disease, chronic, stage III (GFR 30-59 ml/min) ([facility]) Take 1 Tablet by mouth in the [...] once daily 102 Each 1 4 Active Pantoprazole Sodium 40 MG Oral Tablet Delayed Release (Protonix) Take 1 Tablet by mouth in the morning. 90 Tablet 4 Active Dicyclomine HCl 10 MG Oral Capsule (Bentyl) Take 1 Capsule by mouth in the morning and 1 Capsule before bedtime. 180 Capsule 4 Active Simvastatin 20 MG Oral Tablet (Zocor)Indications: Takotsubo cardiomyopathy TAKE 1 TABLET BY MOUTH EVERY DAY IN THE MORNING 90 Tablet 1 4 Active Simvastatin 20 MG Oral Tablet (Zocor)Indications: Takotsubo cardiomyopathy Take 1 Tablet by mouth in the morning. 90 Tablet 4 08/27/20 24 Discontinued documented as of this encounter [...] (Moderna) 06/07/2021,11/16/2020,10/18/2020 Pneumococcal Conjugate Vacci ne, 20-valent ([id number]) 06/30/2022 Pneumococcal Polysaccharide PPV23 (Pneumovax) 05/24/2018 Season [...] for ages 0-17 years) Not on file 0 10/25/2023 Are you homeless or worried that [...] encounter Miscellaneous Notes * Telephone Encounter - Indigo Marti [facility] - 05/14/2024 11:06 AM EDT Signed Prescriptions: Disp Refills Simvastatin 20 MG Oral Tablet (Zocor) 90 Tab*1 Sig: TAKE 1 TABLET BY MOUTH EVERY DAY IN THE MORNINGAuthorizing Provider: KAJAL SIMPSON User: INDIGO MARTI documented in this encounter Plan of Treatment Upcoming Encounters Date Type Department Care Team (Late st Contact Info) Description 05/16/2024 10:40 AM EDT Telemedicine Neurology [address] [place] [address] Laith Cowan DO [address] [facility] [place] [phone] 07/02/2024 8:00 AM EDT Office Visit Nephrology, [place] [address] [place], [place] [phone] Kayla Cleary MD [address] [facility] [place] [address] Scheduled Procedures Name Priority Associated Diagnoses Date/Ti [...] 06/0 09/2020, 03/15/2019 CKD HGB USE SMARTSET 78537 05/23/202405/23, 10/08/2021, 10/08/2021, Additional history exists CKD PHOS USE SMARTSET 32194 05/23/2024 09/0 01/2023, 08/30/2021, 11/12/2020, Additional history exists Diabetic Foot Exam 10/23/2024 10/23/2023, 0 12/06/2021, 12/06/2021 Albumin/Creatinine Ratio 10/26/2024 024, 05/23/2023, 08/30/2021, Additional history exists Diabetic Eye Exam 11/09/2024 11/09/2023, , 11/09/2023, Additional history exists Mammogram 02/21/2025 02/22/2024, 06/0 02/2024, 02/16/2023, Additional history exists HPV/Co-Test 07/21/2026 07/21/2021 Cervical Cancer Screening 11/14/2026 Pap Smear 11/14/2026 11/14/2023, 110 03/2022, 07/25/2022, Additional history exists DTap/Tdap Vaccines [...] Not on filedocumented as of this encounter Visit Diagnoses Diagnosis Takotsubo cardiomyopathy Takotsubo syndrome documented in this encounter Advance Directives * Full Code (Latest Code Status on File) Date Activated Date Inactivated Comments 05/12/2019 10:35 PM 05/14/2019 9:00 PM This order reflects the patients wishes and were consensually agreed upon. Care Teams Egg Tester Relationship Specialty Start Date End Date Kajal Simpson DO [address] [place] [address] PCP - General Family Medicine 06/15/18 documented as of this encounter
--- OUTSIDE RECORDS SUMMARY | 2024-05-17 00:48 | External Medical Summary | Summary of Care ---
Author Name Unknown Organization [facility] Address [address] [place] [address] Phone [phone] Care Team Providers Care Production Superintendent Hydro Name Role Phone Arminda Simpson DO Primary Care Provider Reason for Visit * Reason Comments NEW PATIENT Encounter Details Date Type Department Care Team (Late st Contact Info) Description 05/16/2024 9:20 AM EDT Office Visit Neurology [facility] [address] [place] [address] Eliz Wray MD [address] [place] [address] Vasovagal syncope* Allergies Active Allergy Reactions Criticality Noted Date Comments Buspirone Other (Please comment) 09/25/2015 Suicidal thoughts Sulfa Antibiotics Edema face/lips/tongue High 2018 documented as of this encounter (statuses as of 05/16/2024) Medications Medication Sig Dispensed Refills Start Date [...] at bedtime FOR NIGHTMARES 0 8 Active Spacer/Aero-Holdin g Chambers DEVIIndications:In fluenza-like illness Use with inhaler. 1 Device 8 Active Accu-Chek Brittney Connect w/Device Kit Use as directed. Use once daily E11.9 1 Kit 1 Active Macular Health Formula Oral Capsule 4 Capsules. Active Estradiol 0.1 MG/GM Vaginal Cream (Estrace)Indicatio ns:Stage 3 chronic kidney disease, unspecified whether stage 3a or 3b CKD ([facility]),Recurrent UTI Administer into the vagina 0.5 g once a day Monday and only . 42.5 g 12 2 Active Amphetamine-Dextro amphetamine 20 MG Oral Tablet (Adderall) Take 1 Tablet by mouth in the morning and 1 Tablet before bedtime. Active Aspirin 81 MG Oral Tablet ChewableIndication s:ASCVD (arteriosclerotic cardiovascular disease) chew and swallow 1 tablet by mouth every morning with food 100 Tablet 4 Active Nurtec 75 MG Oral Tablet Disintegrating (Rimegepant Sulfate) Take 75 mg by mouth daily as needed for Migraine. Do not exceed over 18 doses in a month 18 Tablet 3 4 Active Baclofen 5 MG Oral Tablet (Lioresal) Take 1 Tablet by mouth at bedtime as needed for Migraine (limit 2-3 per week). 20 Tablet 3 4 Active Lisinopril 2.5 MG Oral Tablet (Prinivil)Indicati ons:Takotsubo cardiomyopathy,Kid nisreen disease, chronic, stage III (GFR 30-59 ml/min) ([facility]) Take 1 Tablet by mouth in the morning. 90 Tablet 3 4 Active Nitroglycerin 0.4 MG Sublingual Tablet Sublingual (Nitrostat)Indicat ions:Takotsubo cardiomyopathy place 1 tablet under the tongue if needed every 5 minutes for chest pain for 3 doses IF NO RELIEF AFTER THIRD DOSE CALL 911 OR GO TO EMERGENCY ROOM 25 Tablet 11 4 Active Albuterol Sulfate HFA 108 (90 Base) MCG/ACT Inhalation Aerosol SolutionIndication s:Influenza-like illness Inhale 2 Puffs by mouth every 4 hours as needed for Wheezing. 18 g 3 4 Active Fluticasone Propionate 50 MCG/ACT Nasal Suspension (Flonase)Indicatio ns:Sinus headache Administer 2 Sprays into each nostril in the morning. 16 g 10 4 Active Rizatriptan Benzoate 5 MG Oral Tablet Take 1 Tablet by mouth as needed for Migraine. May repeat in 2 hours if needed 10 Tablet 4 Active metFORMIN HCl 500 MG Oral Tablet (Glucophage)Indica tions:Diabetes mellitus with background retinopathy (HCC) take 1 tablet by mouth every morning and evening with meals 180 Tablet 1 4 Active Spironolactone 100 MG Oral Tablet (Aldactone)Indicat ions:Kidney disease, chronic, stage III (GFR 30-59 ml/min) [...] 4 Active Simvastatin 20 MG Oral Tablet (Zocor)Indications :Takotsubo cardiomyopathy TAKE 1 TABLET BY MOUTH EVERY DAY IN THE MORNING 90 Tablet 1 4 Active buPROPion HCl ER (SR) 100 MG Oral Tablet Extended Release 12 Hour (Wellbutrin SR) 1 daily 4 Active buPROPion HCl ER (SR) 100 MG Oral Tablet Extended Release 12 Hour (Wellbutrin SR) Take 2 Tablets by mouth daily. 05/16/20 24 Discontinued(Re fill) acetaminophen (TYLENOL) 325 MG Tablet Take 3 Tabs by mouth every 8 hours. 30 Tab 9 05/16/20 24 Discontinued Tretinoin 0.01 % External Gel Apply topically to affected area daily . 45 g 2 2 05/16/20 24 Discontinued Nortriptyline HCl 10 MG Oral Capsule (Pamelor) Take 1 Capsule by mouth at bedtime. 90 Capsule 3 4 05/16/20 24 Discontinued documented as of this encounter (statuses as of 05/16/2024) Active Problems Problem Noted Date Diagnosed Date [...] as of this encounter (statuses as of 05/16/2024) Resolved Problems Problem Noted Date Diagnosed Date [...] as of this encounter (statuses as of 05/16/2024) Immunizations Name Administration Dates Next Due COVID-19 mRNA, LNP-s, No Pre serve, 2-Dose Series (Moderna) 06/07/2021,11/16/2020,10/18/2020 Pneumococcal Conjugate Vacci ne, 20-valent (Ryizett21) 06/30/2022 Pneumococcal Polysaccharide PPV23 (Pneumovax) 05/24/2018 Season Influenza, Quad, PF, Adjuvanted, 65+ Yrs, IM (FLUAD) 07/23/2020 Seasonal Influenza Virus Vac cine, Unspecified Formulation 05/31/2021,07/23/2020,06/05/2020,05/24,10/30/2016 Seasonal Influenza, PF, 6 M & above, IM , (FluLaval or Fluzone) 06/30/2022,05/24/2018 Seasonal Influenza, Trivalen t, (IIV3), with Preserv, (Fluzone) 10/30/2016 TDAP (age 10 and older)(Boostrix) 12/26/2016 [...] on file documented as of this encounter Last Filed Vital Signs Vital Sign Reading Time Taken Comments Blood Pressure 112/77 05/16/2024 10:24 AM EDT Pulse 63 05/16/2024 10:24 AM EDT Temperature 35 C (95 F) 05/16/2024 9:19 AM EDT Respiratory Rate - - Oxygen Saturation 100% 05/16/2024 9:19 AM EDT Inhaled Oxygen Concentration - - Weight 70.6 kg (155 lb 11.2 oz) 05/16/2024 9:19 AM EDT Height - - Body Mass Index 26.45 01/13/2024 11:48 AM EDT documented in this encounter Functional Status Functional Status Response [...] No 05/12/2019 documented as of this encounter Progress Notes * Shady Pringle, Medical Student - 05/16/2024 10:18 AM EDT Unless the attending has added an attestation supporting use of this note to document a billable service, the signature of the Licensed Professional on this note only acknowledges the presence of thestudent's note within the patient record and the Licensed Professional's note should be referred tofor clinical information and recommendations. HISTORY AND PHYSICAL EXAMINATION [place] [address] NAME: Itzel Yung Date of : 1965 Date of Visit: 05/16/24 Chief Complaint: Chief Complaint Patient presents with NEW PATIENT HPI: Patient is a 58 yo female with hx of migraines, cardiac hx, and head trauma with subdural hematoma treated expectantly who presents following a period of unresponsiveness at a doctors office on Monday. Patient and her mother described the episode as a 15-30 second period in which the patient was standing facing the wall, rigid, staring, and non responsive to tactile, auditory, or visual stimuli. She did not fall. Patient was also very pale, diaphoretic, and nauseated after. Patient is unsure if she lost control of her bladder. There was no repeating movements. Patient was dazed for a little bit after this episode. Patient and her mother describe 2 episode of lightheadedness and daze shortly before the episode of unresponsiveness in an an elevator on the with the doctor's office. She was not in pain at this time. Vitals after sitting down were unremarkable. Blood sugar was not checked in spite of the fact that the patient is diabetic. She had eaten that morning. Patient also reports prior episodes of lightheadedness and falls associated with higher dose prazosin. Patient's cardiac hx includes takotsubo's and an [place]. Patient fell of her horse and hit her head in 2019, causing a SDH. Patient is on multiple meds that lower BP. Patient and family are concerned for a seizure. HOME MEDICATIONS : Current Outpatient Medications Medication Sig Dispense Refill sertraline (ZOLOFT) 100 MG Tablet 2 Tablets in the morning. 0 clonazePAM (KLONOPIN) 0.5 MG Tablet Take 1 Tablet by mouth in the morning and 1 Tablet before bedtime. 1 tab in am, 1 tab midday,1 at bedtime per Cali. 60 Tab 0 prazosin (MINIPRESS) 5 MG CAPS take 1 capsule by mouth at bedtime FOR NIGHTMARES 0 topiramate (TOPAMAX) 100 MG Tablet take 1 tablet by mouth at bedtime FOR NIGHTMARES 0 Spacer/Aero-Holding Chambers GINA Use with inhaler. 1 Device 0 [employer] Connect w/Device Kit Use as directed. Use once daily E11.9 1 Kit 0 Macular Health Formula Oral Capsule 4 Capsules. Estradiol 0.1 MG/GM Vaginal Cream (Estrace) Administer into the vagina 0.5 g once a day Monday and only . 42.5 g 12 Amphetamine-Dextroamphetamine 20 MG Oral Tablet (Adderall) Take 1 Tablet by mouth in the morning and 1 Tablet before bedtime. Aspirin 81 MG Oral Tablet Chewable chew and swallow 1 tablet by mouth every morning with food 100 Tablet 0 Lisinopril 2.5 MG Oral Tablet (Prinivil) Take 1 Tablet by mouth in the morning. 90 Tablet 3 Nitroglycerin 0.4 MG Sublingual Tablet Sublingual (Nitrostat) place 1 tablet under the tongue if needed every 5 minutes for chest pain for 3 doses IF NO RELIEF AFTER THIRD DOSE CALL 911 OR GO TO EMERGENCY ROOM 25 Tablet 11 Albuterol Sulfate HFA 108 (90 Base) MCG/ACT Inhalation Aerosol Solution Inhale 2 Puffs by mouth every 4 hours as needed for Wheezing. 18 g 3 Fluticasone Propionate 50 MCG/ACT Nasal Suspension (Flonase) Administer 2 Sprays into each nostril in the morning. 16 g 10 Rizatriptan Benzoate 5 MG Oral Tablet Take 1 Tablet by mouth as needed for Migraine. May repeat in 2 hours if needed 10 Tablet 0 metFORMIN HCl 500 MG Oral Tablet (Glucophage) take 1 tablet by mouth every morning and evening withmeals 180 Tablet 1 Spironolactone 100 MG Oral Tablet (Aldactone) Take 0.5 Tablets by mouth in the morning. 45 Tablet 3 Accu-Chek Brittney Plus In Vitro Strip (Glucose Blood) Use once daily E11.9 100 Strip 1 Accu-Chek FastClix Lancets use once daily 102 Each 1 Dicyclomine HCl 10 MG Oral Capsule (Bentyl) TAKE 1 CAPSULE BY MOUTH IN THE MORNING AND BEFORE BEDTIME 180 Capsule 0 Pantoprazole Sodium 40 MG Oral Tablet Delayed Release (Protonix) TAKE 1 TABLET BY MOUTH EVERY DAY IN THE MORNING 90 Tablet 0 Simvastatin 20 MG Oral Tablet (Zocor) TAKE 1 TABLET BY MOUTH EVERY DAY IN THE MORNING 90 Tablet 1 buPROPion HCl ER (SR) 100 MG Oral Tablet Extended Release 12 Hour (Wellbutrin SR) 1 daily Nurtec 75 MG Oral Tablet Disintegrating (Rimegepant Sulfate) Take 75 mg by mouth daily as needed for Migraine. Do not exceed over 18 doses in a month 18 Tablet 3 Baclofen 5 MG Oral Tablet (Lioresal) Take 1 Tablet by mouth at bedtime as needed for Migraine (limit 2-3 per week). 20 Tablet 3 No current facility-administered medications for this visit. Review of patient's allergies indicates: Allergen Reactions Sulfa Antibiotics Edema face/lips/tongue Buspar [Buspirone] Other (Please comment) Suicidal thoughts Past Medical History: Diagnosis Date ADHD (attention deficit hyperactivity disorder) Depression Depressive disorder, not elsewhere classified Depression INFORMATION HISTORY OF EATING DISORDER Insulin resistance Kidney disease, chronic, stage III (GFR 30-59 ml/min) 06/27/2016 Per CKD protocol #1 [place] (myocardial infarction) (HCC) 07/07/2015 [facility] Migraine Migraines,unspecified Post traumatic stress disorder (PTSD) Takotsubo cardiomyopathy 07/07/2015 EF at disccharge was 35-45% Urinary tract infection RECURRNT Past Surgical History: Procedure Laterality Date BREAST SURGERY PROCEDURE NEC 1995 BREAST REDUCTION COLONOSCOPY, DIAGNOSTIC (RECTUM) 04/13/2018 proximal hyperplastic/serrated adenomatous polyp, repeat 5 yrs/COLONOSCOPY FLEXIBLE PROXIMAL DIAGNOSTIC performed by Nicki Zhang MD at [facility] COLONOSCOPY, DIAGNOSTIC (RECTUM) 10/16/2023 hemorrhoids/recall 5 years/COLONOSCOPY FLEXIBLE PROXIMAL DIAGNOSTIC performed by Nicki Zhang MD at [facility] EGD, FLEXIBLE, DIAGNOSTIC 04/10/2018 mild gastric irritation/ESOPHAGOGASTRODUODENOSCOPY (EGD), FLEXIBLE, TRANSORAL, DIAGNOSTIC performedby Nicki Zhang MD at [facility] EGD, FLEXIBLE, DIAGNOSTIC 05/16/2018 ESOPHAGOGASTRODUODENOSCOPY (EGD), FLEXIBLE, TRANSORAL, DIAGNOSTIC performed by Mark Echavarria MD at [facility] EGD, W/ENDOSCOPIC US 05/16/2018 pancreatic cysts/ESOPHAGOGASTRODUODENOSCOPY (EGD), FLEXIBLE, TRANSORAL, ENDOSCOPIC ULTRASOUND performed by Mark Echavarria MD at [facility] EGD, W/ENDOSCOPIC US 04/16/2019 pancreatic cysts/ESOPHAGOGASTRODUODENOSCOPY (EGD), FLEXIBLE, TRANSORAL, ENDOSCOPIC ULTRASOUND performed by Mark Echavarria MD at [facility] INFORMATION foot surgery LIGATE/CUT OVIDUCT(S) REMOVE CATARACT, INSERT LENS PROSTH Dr. 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 Employer: [employer] [place] [address] Tobacco Use Smoking status: Never Smokeless tobacco: Never Vaping Use Vaping status: Never Used Substance and Sexual Activity Alcohol use: Yes Alcohol/week: 1.0 standard drink of alcohol Types: 1 5 oz of wine per week Comment: occational Drug use: Not Currently Types: Marijuana Comment: Not using medical marijuana anymore Sexual activity: Yes Partners: Male control/protection: Surgical Other Topics Concern Service Not Asked Blood Transfusions Not Asked Caffeine Concern Not Asked Occupational Exposure Not Asked Hobby Hazards Not Asked Sleep Concern Not Asked Stress Concern Not Asked Weight Concern Not Asked Special Diet Not Asked Back Care Not Asked Exercise Not Asked Bike Helmet Not Asked Seat Belt Yes Self-Exams Not Asked Social History Narrative Merged History Encounter Social Determinants of Health Financial Resource Strain: Low Risk (10/25/2023) Financial Resource Strain Do you have any trouble paying for your medications, or do you think you might in the future? (Adult - for ages 18 years and over): No Does your family have trouble paying for medicine? (Household - for ages 0-17 years): Not on file Food Insecurity: No Food Insecurity (10/25/2023) Food Insecurity Do you need food for this week? (Adult - for ages 18 years and over): No Are you able to get enough food for your family? (Household - for ages 0-17 years): Not on file Does your family need food this week? (Household - for ages 0-17 years): Not on file Do you always have enough food for your family? (Household - for ages 0-17 years): Not on file Transportation Needs: No Transportation Needs (10/25/2023) Transportation Needs Do you have trouble getting a ride to medical visits or work? (Adult - for ages 18 years and over):Never True Does your family have a hard time getting a ride to doctors visits? (Household - for ages 0-17 years): Not on file Has lack of transportation kept you from medical appointments, meetings, work, or from getting things needed for daily living? Check all that apply. (Adult - for ages 18 years and over): Not on file Do you (or your family) have trouble finding or paying for a ride (transportation)? (Household - for ages 0-17 years): Not on file Social Connections: Socially Integrated (10/25/2023) Social Connections How often do you feel lonely or isolated from those around you? (Adult - for ages 18 years and over): Never Housing Stability: Low Risk (10/25/2023) Housing Stability Do you currently live in a skilled nursing or have no steady place to sleep at night? (Adult - for ages 18 years and over): No Do you think you are at risk of becoming homeless? (Adult - for ages 18 years and over): No Does your family worry about paying for your home or becoming homeless? (Household - for ages 0-17 years): Not on file Are you homeless or worried that you might be in the future? (Adult - for ages 18 years and over): Not on file Are you (or your family) homeless or worried that you might be in the future? (Household - for ages0-17 years): Not on file ROS: Negative except as noted above in the HPI PHYSICAL EXAMINATION: Vital Signs: BP 104/62 (BP Site: Right Arm, BP Position: Sitting, BP Cuff Size: Regular) | Pulse 70 | Temp (!) 35 C (95 F) (Tympanic) | Wt 70.6 kg (155 lb 11.2 oz) | SpO2 100% | BMI 26.45 kg/m | BSA 1.79 m 05/16/2024 05/16/2024 05/16/2024 BP: 112/77 110/80 111/74 BP Site: Right Arm Right Arm Right Arm BP Position: Sitting Standing Supine Pulse: 63 67 60 EXAM: Constitutional: appearance normally developed, well nourished and non-obese Head and Face: normocephalic and atraumatic Eyes: normal lids, normal conjunctiva Neck: supple Respiratory: normal effort Cardiovascular: normal pulses. RRR. No murmurs rubs or gallops. Abdomen: non distended Skin: no rashes, lesions, or ulcers noted Psychiatric: normal judgement and insight, normal mood and normal affect NEUROLOGIC EXAMINATION: Appearance: no acute distress Orientation: awake, alert and oriented x 3 Mental Status: alert Attention: normal Knowledge: appropriate Language: Spontaneous speech and language is unremarkable Speech: no dysarthria Cranial Nerves: CN 2 - no visual defect on confrontation and pupils round, equal, reactive to light optic nerves are unremarkable CN 3, 4, 6 - extra-ocular movements intact and no nystagmus CN 5 - facial sensation intact CN 7 - no facial asymmetry CN 8 - intact hearing CN 9, 10 - palate symmetric CN 11 - good shoulder shrug CN 12 - tongue midline Gait: stable, no ataxia f Coordination: no ataxia with finger to nose testing Sensory: intact to light touch Muscle Tone: normal Muscle exam: no focal motor weakness or muscle atrophy Reflexes: reflexes are symmetric, 2+ at both knees, negative Monaco sign, no ankle LABORATORY: Labs reviewed and pertinent findings are indicated below: Review of prior Diagnostic Tests: Review of prior Radiology Studies: Narrative & Impression EXAM MRI BRAIN W WO CONTRAST-11/20/2023 8:03 am IMPRESSION 1. No acute intracranial abnormality. 2. Small right frontal periventricular cavernous malformation without associated edema or evidence of recent hemorrhage. 3. 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 4. Scattered foci of nonspecific T2/FLAIR signal hyperintensity in the cerebral white matter, slightly greater than what may be expected for age. While most suggestive of chronic microvascular ischemic changes, the broad differential diagnosis also includes sequelae of migraine headache, prior infec tion/inflammation, and demyelination, among other etiologies. (I have reviewed the Neurosurgery to assessment of this imaging and his recommendations for follow-up in the futureEliz Wray MD) IMPRESSION / PLAN: Itzel was seen today for new patient. Diagnoses and all orders for this visit: Vasovagal syncope - EEG ROUTINE Patient's episode of unresponsiveness is best explained as an episode of syncope , either vasovagalor orthostatic in nature. This is supported by her blood pressure usually being on the lower end, diaphoresis and pallor during the episode, polypharmacy, and hx of syncopal symptoms, both that day and previously. It is unlikely to have been a seizure due to lack of seizure hx, no repetitive movements, lack of significant post ictal symptoms, and presence of diaphoresis and pallor. Patient is on multiple meds which could cause or contribute to orthostasis including spironolactone lisinopril andprazosin. Will order EEG to help rule out seizure disorder. Patient is also a diabetic. It is unlikely this was an episode of hypoglycemia due to rapid recovery without any carb intake, but blood sugar should be checked if this ever occurs again. Patient is scheduled to see Cardiology Follow up if needed. The patient has my contact information should they have any further questions or concerns in the meantime. Thank you for allowing me to participate in Itzel's care. Shady Pringle, Medical Student Patient was seen and examined with Shady Pringle I have addended the history physical and assessment and plan where appropriate. Agree with management as above. Eliz Wray MD documented in this encounter Nursing Notes * Pamella Locke LPN - 05/16/2024 9:14 AM EDT Chief Complaint Patient presents with NEW PATIENT Pt stated she thinks she had seizure on Monday. She was in drs office. Pts mother witnessed. Pt wasunresponsive during appointment documented in this encounter Plan of Treatment Upcoming Encounters Date Type Department Care Team (Late st Contact Info) Description 05/21/2024 9:00 AM EDT NeuroDiagnostic Study Neurophysiology [facility] [place] [address] [facility] [place], [place] [address] Sp, Neurophys Tech [address] [facility] [place] [id number] 07/02/2024 8:00 AM EDT Office Visit Nephrology, [facility] [address] [facility] [place] [address] Kayla Cleary MD [address] [facility] [place] [address] Scheduled Orders Name Type Priority Associated Diagnoses Orde r Schedule EEG ROUTINE Procedures Routine Vasovagal syncope Ordered: 05/16/2024 Scheduled Procedures Name Priority Associated Diagnoses Date/Ti me COLONOSCOPY FLEXIBLE PROXIMA L DIAGNOSTIC Recall History of colonic polyps Health Maintenance Due Date Last Done Comments Cologuard 2008 Fecal Occult Blood Test 2008 Sigmoidoscopy 2008 Depression Monitoring 06/26/2021 06/26/2020 COVID-19 Vaccine ( season) 2023 06/07/2021, 11/16/2020, 10/18/2020 HbA1c 11/21/2023 05/23/2023, 06/18, 07/06/2021, Additional history exists GFR 04/25/2024 10/26/2023, 0901/2023, 12/06/2021, Additional history exists Influenza Vaccine (FLU shot) (#1) 2024 06/30/2022, 05/31/2021, 05/31/2021, Additional history exists B-12 05/23/2024 05/23/2023, 06/0 09/2020, 03/15/2019 CKD HGB USE SMARTSET 55216 05/23/202405/23, 10/08/2021, 10/08/2021, Additional history exists CKD PHOS USE SMARTSET 49133 05/23/2024 09/0 01/2023, 08/30/2021, 11/12/2020, Additional history [...] as of this encounter Visit Diagnoses Diagnosis Vasovagal syncope- Primary Syncope and collapse documented in this encounter Advance Directives * Full Code (Latest Code Status on File) Date Activated Date Inactivated Comments 05/12/2019 10:35 PM 05/14/2019 9:00 PM This order reflects the patients wishes and were consensually agreed upon. Care Teams Production Superintendent Hydro Relationship Specialty Start Date End Date Arminda Simpson DO [address] [place] [address] PCP - General Family Medicine 06/15/18 documented as of this encounter"
[2024-05-17] MEDS: SODIUM CHLORIDE 0.9% 500 ML IV STA (02:54)
--- NOTE | 2024-05-17 03:29 | History & Physical Report ---
Date of Service May 17, 2024 Assessment & Plan (1) NSTEMI (non-ST elevated myocardial infarction): Plan: 58-year-old female with past medical history significant for hypercholesteremia, diabetes mellitus, asthma in remission, lung nodule, history of Takotsubo cardiomyopathy x 2, atherosclerotic cardiovascular disease, irritable bowel syndrome, GERD, stage III chronic kidney disease history of subdural hematoma, history of PTSD associated nightmares, migraine variant, chronic anxiety, history of recurrent UTI, depression comes because of chest pains on and off since last 1 week. Patient states chest pain is about 7/10 in severity. Also last Monday she had couple of episodes of near syncope's and then had episode of 30 seconds of unresponsiveness at doctors office on Monday. During unresponsive episode she did not fall but she was staring and not responsive to any stimuli. She saw neurology yesterday and thought mostly vasovagal syncope and plan for EEG next Monday. After going home again she was having chest pains and was feeling very anxious and her heart was pounding and she was feeling could not breathe and could not climb steps and decided to come to the ER. Her blood pressure usually runs low and she is also on medications prazosin for nightmares which makes blood pressure low per patient. She did not take her prazosin tonight. Currently still feels short of breath. Having some headaches. Vision is okay. No runny nose or sore throat. No cough. No difficulty swallowing. Denies nausea. No abdominal pain. Normal bowel and bladder movements. Resting comfortably in the bed and was able to give her history. Non-ST elevated CO On and off chest pains for 1 week EKG no acute findings CTA chest no PE Initial troponin 922 And repeat is 661 ER started on IV heparin which will be continued History of Takotsubo cardiomyopathy x 2 Will follow serial enzymes and echo N.p.o. Telemetry Cardiac consult in a.m. for further recommendations Close monitor Hypotension Recent presyncope's and episode of unresponsiveness Neurology thought possibly vasovagal Will hold lisinopril and spironolactone Gentle fluids Follow echo Close monitor Diabetes Hold metformin Sliding scale Will follow blood sugars and HbA1c levels Hypercholesterolemia On Zocor CKD stage III Presented creatinine 1.3 Seems around baseline Will follow labs PTSD Depression Chronic anxiety History of panic attacks Continue home medications History of recurrent UTI Follow UA GERD On Protonix DVT prophylaxis On IV heparin Disposition Telemetry Full code. History of Present Illness Chief Complaint: Chest pains Primary Care Provider: Arminda Simpson DO 58-year-old female with past medical history significant for hypercholesteremia, diabetes mellitus, asthma in remission, lung nodule, history of Takotsubo cardiomyopathy x 2, atherosclerotic cardiovascular disease, irritable bowel syndrome, GERD, stage III chronic kidney disease history of subdural hematoma, history of PTSD associated nightmares, migraine variant, chronic anxiety, history of recurrent UTI, depression comes because of chest pains on and off since last 1 week. Patient states chest pain is about 7/10 in severity. Also last Monday she had couple of episodes of near syncope's and then had episode of 30 seconds of unresponsiveness at doctors office on Monday. During unresponsive episode she did not fall but she was staring and not responsive to any stimuli. She saw neurology yesterday and thought mostly vasovagal syncope and plan for EEG next Monday. After going home again she was having chest pains and was feeling very anxious and her heart was pounding and she was feeling could not breathe and could not climb steps and decided to come to the ER. Her blood pressure usually runs low and she is also on medications prazosin for nightmares which makes blood pressure low per patient. She did not take her prazosin tonight. Currently still feels short of breath. Having some headaches. Vision is okay. No runny nose or sore throat. No cough. No difficulty swallowing. Denies nausea. No abdominal pain. Normal bowel and bladder movements. Resting comfortably in the bed and was able to give her history. Past medical history. As mentioned above Past surgical history. Breast reduction. Colonoscopy. EGD. EGD with endoscopic ultrasound. Foot surgery. Ligation of oviducts. Cataracts. Social history. . No smoking. Alcohol occasional. No drugs currently. Family history. Mother has diabetes. Hyperlipidemia. Hypertension. Daughter has acid maltase deficiency. Brother has alcoholism. Allergies Allergy/AdvReac Type Severity Reaction Status Date / Time contact metal agent Allergy Intermediate "metals Verified 05/16/24 23:46 other than gold" Sulfa (Sulfonamide Allergy Intermediate FACIAL Verified 05/16/24 22:41 Antibiotics) SWELLING buspirone AdvReac Severe SUICIDAL Verified 05/16/24 22:41 IDEATIONS Home Medications Medication Instructions Recorded Confirmed Type clonazepam 0.5 mg tablet 0.5 mg PO TID PRN Anxiety 03/06/20 05/16/24 History metformin 500 mg tablet 500 mg PO BID 03/06/20 05/16/24 History nitroglycerin 0.4 mg sublingual 0.4 mg sublingual DIRECTED PRN 03/06/20 05/16/24 History tablet Chest Pain prazosin 5 mg capsule 5 mg PO HS 03/06/20 05/16/24 History sertraline 100 mg tablet 100 mg PO QAM 03/06/20 05/16/24 History simvastatin 20 mg tablet 20 mg PO QAM 03/06/20 05/16/24 History topiramate 50 mg tablet 50 mg PO HS 03/06/20 05/16/24 History dextroamphetamine-amphetamine 20 20 mg PO BID 07/25/22 05/16/24 History mg tablet dicyclomine 10 mg capsule 10 mg PO BID 07/25/22 05/16/24 History lisinopril 2.5 mg tablet 2.5 mg PO QPM 07/25/22 05/16/24 History pantoprazole 40 mg tablet,delayed 40 mg PO QAM 07/25/22 05/16/24 History release albuterol sulfate 90 mcg/actuation 1 inh inhalation UD PRN PANIC 01/30/23 05/16/24 History aerosol inhaler ATTACKS spironolactone 100 mg tablet 100 mg PO BID #180 tabs 09/13/23 05/16/24 Rx tretinoin microspheres 0.1 % 1 applic topical UD PRN ROSACEA 12/11/23 05/16/24 Rx topical gel #45 grams bupropion HCl 100 mg tablet,12 hr 100 mg PO DAILY 03/21/24 05/16/24 History sustained-release estradiol 0.01% (0.1 mg/gram) 0.25 g vaginal 2XWK 05/16/24 05/16/24 History vaginal cream Past Med/Surg History Problem List (Updated 05/17/24 @ 03:56 by Fly Langley MD) NSTEMI (non-ST elevated myocardial infarction) Elevated troponin (Acute) Postmenopausal atrophic vaginitis Dermatochalasis of both eyelids PMB (postmenopausal bleeding) Status post cardiac catheterization (Chronic) "nonocclusive CAD 30% proximal LAD 07/07/15" Insulin resistance (Chronic) Chest pain (Acute) Medical History History of being hospitalized [facility] ACC[facility] 2019 [facility] BLOOD ON BACK OF HEAD/MONITORED. NO SX INTERVENTION. Takotsubo cardiomyopathy DX 2014. Tremor hands TMJ (temporomandibular joint disorder) hx locking 2019, "none since" History of pancreatitis no current issues Night terrors Acid reflux Hiatal hernia History of myocardial infarction X2 : 2015 & 2017. 1 HEART CATH FOR EACH CO...NO STENT(S) Borderline high blood pressure Diabetes with retinopathy Diabetes Major depression, recurrent Posttraumatic stress disorder Attention deficit disorder with hyperactivity Coronary artery disease "nonocclusive CAD 30% proximal LAD per cath 07/07/15" Hyperlipidemia Surgical History S/P trigger finger release History of toe surgery R&L. History of left cataract surgery History of right cataract surgery History of endoscopy History of colonoscopy History of cardiac cath X2...HX CO X2...2014 & 2016 - NO STENT(S) [facility]; f/u dr. kearney, [facility] Status post tubal ligation Family History Aunt Breast cancer Grandmother Breast cancer Ovarian cancer Grandfather Myocardial infarction Denies family history of Prostate cancer Colorectal cancer Social History Smoking Status: Never smoker Second Hand Exposure: No; Do You Dip or Chew Tobacco: No; Hx Alcohol Use: Yes Alcohol type: wine Hx Substance Use: Yes (had medical card) Last Used Substance Other:: "tried and couldn't stand it">few years ago Preferred Language: Amharic Communication Ability: Effective Securities Clerk Required: No Beliefs That Will Affect Care: None Current Living Situation: Spouse Feels Safe at Home: Yes Assistive Devices: Contacts and Glasses Review of Systems Review of Systems: All systems reviewed & are unremarkable except as noted in HPI & below Physical Exam Physical Exam: General- Not in distress Head- atraumatic Eyes- PERRL. ENT- oropharynx clear Neck- supple, no JVD. Lungs- clear to auscultation no wheezing or crackles Heart- regular rate and rhythm; no murmur, no gallop. Abdomen- normal bowel sounds, soft, nontender, no distension. Extremities- mild pretibial edema, no erythema seen Neuro- alert, oriented x 3; no facial palsy; no dysarthria; moves extremities Results & Data Results & Data Vital Signs (Past 12 Hours) Vital Signs Temp Pulse Pulse Resp BP BP Pulse Ox 05/17/24 02:37 69 18 84/54 L 100 05/17/24 01:39 64 05/17/24 00:30 65 16 97/69 L 99 05/17/24 00:00 63 21 96/66 L 100 05/16/24 23:30 91/61 L 05/16/24 23:27 62 18 89/63 L 97 05/16/24 23:00 64 19 81/63 L 100 05/16/24 21:43 75 05/16/24 20:38 05/16/24 20:33 36.6 C 81 16 97/62 L 100 O2 Del Method 05/17/24 02:37 Room Air 05/17/24 01:39 05/17/24 00:30 05/17/24 00:00 05/16/24 23:30 05/16/24 23:27 Room Air 05/16/24 23:00 Room Air 05/16/24 21:43 05/16/24 20:38 Room Air 05/16/24 20:33 Room Air Diagnostic Findings Laboratory Results WBC 9.03 K/ul (4.8-10.8) 05/16/24 20:39 RBC 4.26 M/uL (4.20-5.40) 05/16/24 20:39 Hgb 11.7 g/dl (12.0-16.0) L 05/16/24 20:39 Hct 37.3 % (37.0-47.0) 05/16/24 20:39 MCV 87.6 fL (80.0-100.0) 05/16/24 20:39 MCH 27.5 pg (25.0-34.0) 05/16/24 20:39 MCHC 31.4 g/dL (32.0-36.0) L 05/16/24 20:39 RDW Std Deviation 40.6 fL (36.4-46.3) 05/16/24 20:39 RDW Coeff of Christina 12.9 % (11.5-14.5) 05/16/24 20:39 Plt Count 270 K/uL (130-400) 05/16/24 20:39 MPV 9.2 fL (9.4-12.4) L 05/16/24 20:39 Immature Gran % (Auto) 0.2 % 05/16/24 20:39 Neut % (Auto) 65.1 % 05/16/24 20:39 Lymph % (Auto) 20.7 % 05/16/24 20:39 Rincon % (Auto) 11.5 % 05/16/24 20:39 Eos % (Auto) 1.7 % 05/16/24 20:39 Baso % (Auto) 0.8 % 05/16/24 20:39 Neut # (Auto) 5.88 K/uL (1.40-6.50) 05/16/24 20:39 Lymph # (Auto) 1.87 K/uL (1.20-3.40) 05/16/24 20:39 Rincon # (Auto) 1.04 K/uL (0.11-0.59) H 05/16/24 20:39 Eos # (Auto) 0.15 K/uL (0.00-0.50) 05/16/24 20:39 Baso # (Auto) 0.07 K/uL (0.00-0.20) 05/16/24 20:39 Immature Gran # (Auto) 0.02 K/uL (0.01-0.20) 05/16/24 20:39 Sodium 136 mmol/L (136-145) 05/16/24 20:39 Potassium 3.7 mmol/L (3.5-5.1) 05/16/24 20:39 Chloride 105 mmol/L (98-107) 05/16/24 20:39 Carbon Dioxide 23 mmol/L (21-32) 05/16/24 20:39 Anion Gap 8 (3-11) 05/16/24 20:39 BUN 30 mg/dl (6-23) H 05/16/24 20:39 Creatinine 1.34 mg/dl (0.6-1.2) H 05/16/24 20:39 Est Cr Clr Drug Dosing 43.8 ml/min 05/16/24 20:39 Est GFR ( Amer) 49.8 ml/min 05/16/24 20:39 Est GFR (Non-Af Amer) 43.0 ml/min 05/16/24 20:39 BUN/Creatinine Ratio 22.4 (10-20) H 05/16/24 20:39 Glucose 133 mg/dl (70-99(Fasting)) H 05/16/24 20:39 Calcium 8.9 mg/dl (8.6-10.3) 05/16/24 20:39 Total Bilirubin 0.2 mg/dl (0.2-1.0) 05/16/24 20:39 AST 14 U/L (13-39) 05/16/24 20:39 ALT 10 U/L (7-52) 05/16/24 20:39 Alkaline Phosphatase 64 U/L (34-104) 05/16/24 20:39 Troponin I High Sens 661.8 pg/ml (0-14) H* D 05/16/24 22:40 Total Protein 6.9 gm/dl (6.0-8.3) 05/16/24 20:39 Albumin 4.4 gm/dl (3.4-5.0) 05/16/24 20:39 Globulin 2.5 gm/dl (2.5-4.0) 05/16/24 20:39 Albumin/Globulin Ratio 1.8 (0.9-2) 05/16/24 20:39 Lipase 54 U/L (11-82) 05/16/24 20:39 Impressions Chest CTA 05/16/24 21:56 Exam(s): CTA CHEST IV Amt: 116 ml optiray 320 EXAM: CT Angiography Chest With Intravenous Contrast CLINICAL HISTORY: PE. TECHNIQUE: Axial computed tomographic angiography images of the chest with intravenous contrast. MIPS images were created and reviewed. CTDI is 30 mGy and DLP is 450.74 mGy-cm. Automated exposure control was utilized for the study. A dose lowering technique was utilized adhering to the principles of ALARA. MIP reconstructed images were created and reviewed. COMPARISON: No relevant prior studies available. FINDINGS: Pulmonary arteries: Unremarkable. No pulmonary embolus. Aorta: There is ectasia of the ascending aorta measuring 3.5 cm. Minimal atherosclerosis. No thoracic aortic aneurysm. Lungs: Unremarkable. No mass. No consolidation. Pleural space: Unremarkable. No significant effusion. No pneumothorax. Heart: Coronary artery calcifications are present. No cardiomegaly. No significant pericardial effusion. No evidence of RV dysfunction. Mediastinum: Large hiatal hernia. Bones/joints: There are degenerative changes of the spine. No acute fracture. Soft tissues: Unremarkable. Lymph nodes: Unremarkable. No enlarged lymph nodes. IMPRESSION: 1. No pulmonary embolus. 2. There is ectasia of the ascending aorta measuring 3.5 cm. 3. Large hiatal hernia. Electronically signed by: Cari Dumas MD 05/16/24 23:16 PM ECG Additional Comments: ECG normal sinus rhythm rate of 77. Low voltage QRS. No acute ST changes seen. Code Status & VTE Plan VTE Prophylaxis Plan VTE Prophylaxis will be ordered: Yes
[2024-05-17] MEDS ORDERED: NITROGLYCERIN SL 0.4 MG/TAB TAB SL PRN (03:55)
[2024-05-17] MEDS ORDERED: ALBUTEROL HFA 8 GM INHALER INH PRN (03:55)
[2024-05-17] MEDS ORDERED: POLYETHYLENE (MIRALAX) 17 GM PACK PO PRN (03:55)
[2024-05-17] MEDS ORDERED: GLUCOSE 10 TAB/TUBE PO PRN (04:01)
[2024-05-17] MEDS ORDERED: DEXTROSE 50% 50 ML SYRINGE IV PRN (04:01)
[2024-05-17] MEDS ORDERED: GLUCOSE 40% GEL 15 GM TUBE PO PRN (04:01)
[2024-05-17] MEDS ORDERED: CARBOHYDRATES FOR HYPOGLYCEMIA PO PRN (04:01)
[2024-05-17] MEDS ORDERED: GLUCAGON FOR INJ 1 MG VIAL SQ PRN (04:01)
[2024-05-17] MEDS: SODIUM CHLORIDE 0.9% 1,000 ML IV SCH (04:49)
[2024-05-17] MEDS: INSULIN ASPART PER UNIT CHARGE SC SCH ×2 (05:07→19:49)
[2024-05-17] MEDS: ACETAMINOPHEN 325 MG TAB PO PRN (06:42)
[2024-05-17 07:08] LABS: Basophils # (auto) 0.06 K/uL (0.00-0.20); Basophils % (auto) 0.9 %; Eosinophils # (auto) 0.19 K/uL (0.00-0.50); Eosinophils % (auto) 2.9 %; Hematocrit (blood only) 30.8 % (37.0-47.0); Hemoglobin 9.9 g/dl (12.0-16.0); Immature Granulocytes # (auto) 0.02 K/uL (0.01-0.20); Immature Granulocytes % (auto) 0.3 %; Lymphocytes # (auto) 2.58 K/uL (1.20-3.40); Lymphocytes % (auto) 39.5 %; Mean Corpuscular Hemoglobin 27.9 pg (25.0-34.0); Mean Corpuscular Hgb Conc 32.1 g/dL (32.0-36.0); Mean Corpuscular Volume 86.8 fL (80.0-100.0); Mean Platelet Volume 9.4 fL (9.4-12.4); Monocytes # (auto) 0.74 K/uL (0.11-0.59); Monocytes % (auto) 11.3 %; Neutrophils # (auto) 2.94 K/uL (1.40-6.50); Neutrophils % (auto) 45.1 %; Platelet Count 223 K/uL (130-400); RDW Coefficient of Variation 12.9 % (11.5-14.5); RDW Standard Deviation 40.7 fL (36.4-46.3); Red Blood Count 3.55 M/uL (4.20-5.40); White Blood Count 6.53 K/ul (4.8-10.8)
[2024-05-17 07:19] LABS: ANTI-Xa, UFH(UnfractionatedHep 0.17 IU/ml (0.3-0.7)
[2024-05-17] MEDS: DEXTROAMPHETAMINE/AMPHETAMINE IR 20 MG TAB PO SCH (07:21)
--- NOTE | 2024-05-17 07:24 | XRay Report ---
XR chest 1V portable CLINICAL HISTORY: Chest pain, nonspecific COMPARISON STUDY: Chest radiograph March 21, 2024. FINDINGS: Lung volumes are normal. Lungs are clear. There is no pneumothorax or pleural effusion. Car diac size is normal. A hiatal hernia is again noted. There is no evidence for pulmonary edema. IMPRESSION: No acute cardiopulmonary findings. ACT 112: Negative or not required by law. Electronically signed by: Jamarcus Hooper M.D. 05/17/2024 7:22 AM
[2024-05-17 07:26] LABS: BUN Creatinine Ratio 22.5 (10-20); Calcium 7.5 mg/dl (8.6-10.3); Creatinine Clr Calc Pharmacy 52.9 ml/min; Est GFR (African American) 62.5 ml/min; Est GFR (Non-African American) 53.9 ml/min; Magnesium 1.8 mg/dl (1.7-2.4); Potassium 3.6 mmol/L (3.5-5.1)
[2024-05-17] MEDS: HEPARIN SOD (PORCINE) 1000 UNIT/ML ONE (07:27)
[2024-05-17 07:40] LABS: Troponin I High Sensitivity 291.5 pg/ml (0-14)
[2024-05-17 08:20] LABS: Estimated Average Glucose 123 mg/dl; Hemoglobin A1C 5.9 % (4.5-5.6)
[2024-05-17] MEDS: SERTRALINE HCL 100 MG TABLET PO SCH (08:26)
[2024-05-17] MEDS: PANTOprazole 40 MG TAB PO SCH (08:26)
[2024-05-17] MEDS: DICYCLOMINE HCL 10 MG CAP PO SCH (08:26)
[2024-05-17] MEDS: SIMVASTATIN 20 MG TAB PO SCH (08:27)
[2024-05-17] MEDS: buPROPion SR 100 MG TABCR PO SCH (08:27)
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
[2024-05-17] MEDS: METOPROLOL SUCC 25MG EXT REL TAB PO SCH (10:24)
[2024-05-17] MEDS: ASPIRIN 81 MG ECTAB PO SCH (10:34)
[2024-05-17 13:17] LABS: Appearance Urine Clear (Clear); Bilirubin Urine Negative (Negative); Blood Urine Negative (Negative); Color Urine Yellow; Glucose Urine UA Negative (Negative); Ketones Urine Negative (Negative); Leukocyte Esterase Urine Negative (Negative); Nitrite Urine Negative (Negative); Protein Urine Negative (Negative); Specific Gravity Urine 1.029 (1.000-1.030); Urobilinogen Urine Negative (Negative)
--- NOTE | 2024-05-17 14:22 | Pre Anesthesia Assessment ---
Date of Service May 17, 2024 Pre Sedation Assessment Vital Signs Temp Pulse Pulse Resp BP BP Pulse Ox 05/17/24 13:17 65 20 96/61 L 98 05/17/24 13:07 64 16 99/68 L 100 05/17/24 10:23 66 18 92/62 L 100 05/17/24 08:52 98.2 F 75 20 94/65 L 100 05/17/24 07:30 71 18 102/57 L 92 05/17/24 07:10 58 L 05/17/24 06:37 63 18 87/57 L 99 05/17/24 04:31 97.9 F 05/17/24 04:31 05/17/24 04:00 97.9 F 62 18 86/60 L 97 05/17/24 03:29 110/70 05/17/24 02:37 69 18 84/54 L 100 05/17/24 01:39 64 05/17/24 00:30 65 16 97/69 L 99 05/17/24 00:00 63 21 96/66 L 100 05/16/24 23:30 91/61 L 05/16/24 23:27 62 18 89/63 L 97 05/16/24 23:00 64 19 81/63 L 100 05/16/24 21:43 75 05/16/24 20:38 05/16/24 20:33 97.9 F 81 16 97/62 L 100 Pulse Ox O2 Del Method O2 Del Method 05/17/24 13:17 Room Air 05/17/24 13:07 Room Air 05/17/24 10:23 Room Air 05/17/24 08:52 Room Air 05/17/24 07:30 Room Air 05/17/24 07:10 05/17/24 06:37 Room Air 05/17/24 04:31 05/17/24 04:31 96 Room Air 05/17/24 04:00 Room Air 05/17/24 03:29 05/17/24 02:37 Room Air 05/17/24 01:39 05/17/24 00:30 05/17/24 00:00 05/16/24 23:30 05/16/24 23:27 Room Air 05/16/24 23:00 Room Air 05/16/24 21:43 05/16/24 20:38 Room Air 05/16/24 20:33 Room Air Cardiovascular + regular rate Respiratory + respiratory effort normal Pre-Sedation Airway Assessment Smoking Status: Never smoker Hx Sleep Apnea: No Hx Difficult Intubation: No Short, Thick Neck: No Thyromental Distance: > or= 3.5 Finger Breadths Oral Cavity: + WNL Mallampati Class: II ASA: ASA2 NPO Status Date of Last Intake of Fluids: 05/17/24 Time of Last Intake of Fluids: 00:00 Date of Last Intake of Solid Food: 05/17/24 Time of Last Intake of Solid Foods: 00:00 Procedure Planning Contraindications for Sedation: none Current Medications Reviewed: Yes Notes The planned sedation has been discussed with the patient. Informed Consent was obtained. I have identified the patient, determined the appropriateness of sedation and have assessed the patient immediately prior to the procedure. All medicine(s) and interventions are by my order.
[2024-05-17] MEDS: niCARdipine HCL INJ 2.5 MG/ML 10 ML AMP ONE (14:38)
[2024-05-17] MEDS: NITROGLYCERIN/D5W 100MCG/ML 20ML SYR ONE (14:39)
[2024-05-17] MEDS: fentaNYL citrate PF 100 MCG/2 ML VIAL ONE (14:40)
[2024-05-17] MEDS: HEPARIN (PORCINE) 1000 UNIT/ML 10 ML (CATH LAB USE ONLY) ONE (14:41)
[2024-05-17] MEDS: IODIXANOL (VISIPAQUE) 320 MG/ML 100ML IV ONE (14:42)
[2024-05-17] MEDS: MIDAZOLAM HCL 1 MG/ML 2ML VIAL ONE (14:42)
--- NOTE | 2024-05-17 14:44 | Post Anesthesia Assessment ---
Date of Service May 17, 2024 Post Sedation Assessment Vital Signs Temp Pulse Pulse Resp BP BP Pulse Ox 05/17/24 13:17 65 20 96/61 L 98 05/17/24 13:07 64 16 99/68 L 100 05/17/24 10:23 66 18 92/62 L 100 05/17/24 08:52 98.2 F 75 20 94/65 L 100 05/17/24 07:30 71 18 102/57 L 92 05/17/24 07:10 58 L 05/17/24 06:37 63 18 87/57 L 99 05/17/24 04:31 97.9 F 05/17/24 04:31 05/17/24 04:00 97.9 F 62 18 86/60 L 97 05/17/24 03:29 110/70 05/17/24 02:37 69 18 84/54 L 100 05/17/24 01:39 64 05/17/24 00:30 65 16 97/69 L 99 05/17/24 00:00 63 21 96/66 L 100 05/16/24 23:30 91/61 L 05/16/24 23:27 62 18 89/63 L 97 05/16/24 23:00 64 19 81/63 L 100 05/16/24 21:43 75 05/16/24 20:38 05/16/24 20:33 97.9 F 81 16 97/62 L 100 Pulse Ox O2 Del Method O2 Del Method 05/17/24 13:17 Room Air 05/17/24 13:07 Room Air 05/17/24 10:23 Room Air 05/17/24 08:52 Room Air 05/17/24 07:30 Room Air 05/17/24 07:10 05/17/24 06:37 Room Air 05/17/24 04:31 05/17/24 04:31 96 Room Air 05/17/24 04:00 Room Air 05/17/24 03:29 05/17/24 02:37 Room Air 05/17/24 01:39 05/17/24 00:30 05/17/24 00:00 05/16/24 23:30 05/16/24 23:27 Room Air 05/16/24 23:00 Room Air 05/16/24 21:43 05/16/24 20:38 Room Air 05/16/24 20:33 Room Air Recovery Score Activity: Moves 4 extremities Respiration: Deep Breath/Cough Circulation: +/-20% PreAnes Value Consciousness: Fully Awake Oxygen Saturation: O2 needed for >90% Discharge Sedation Level of Care: Fast Track Phase II Post Sedation Plan On clinical assessment, the patient appears to have tolerated the sedation without complications. Patient is recovering as anticipated. Patient will continue to be monitored by nursing and may be discharged when sedation discharge criteria are met per below protocol. Upon Completions of procedure up to 15 minutes continue every 5 minute vital signs and the P.A.R. score; then discharge to a Phase I or Fast Track to Phase II per the following guidelines: * Discharge Patient to appropriate Phase II area if PAR is 8 or greater or return to pre- procedure baseline. The post - procedure orders will be as directed. * If PAR score is less than 8 or not return to pre-procedure baseline then patient will follow Phase I monitoring till PAR is reached for Phase II. The Phase I may be done in procedure room or may call to secure a Phase I area. * If naloxone or flumazenil are used for reversal, hold in Phase I for continued monitoring from when last reversal dose was given for a minimum of 60 minutes or longer pending the nurse and/or physician discretion of patient condition before discharge to Phase II. Please call the Sedation Physician to re-evaluate and complete post-note for discharge to Phase II area. Do NOT discharge from procedure sedation or Phase 1 until post- sedation evaluation note is complete by procedure /sedation MD Sedation Discharge Instructions to be given to the patient at discharge to home.
--- NOTE | 2024-05-17 14:47 | Cardiac Catheterization ---
[facility] Data: Drying Can Worker Cardiac Status Clinical evaluation leading to the procedure CAD Presenation: STEMI Anginal Classification: CCS IV Diagnostic Physicians Name: Danyel Bajwa MD Closure Device Recommendations: Medical Therapy and/or Counseling Cardiac Cath Procedure Full Procedure Date May 17, 2024 Pre-Procedure Diagnosis Pre-Procedure Diagnosis: Angina and Cardiomyopathy AUC Score AUC Score: 7 Post-Procedure Diagnosis Post-Procedure Diagnosis: Moderate CAD and Normal Intracardiac Pressures Procedure(s) Performed Procedure(s) Performed: Coronary Angiography and Left Heart Cath Processing Assistant Danyel Bajwa MD Geological Survey Field Assistant(s) Reena Estimated Blood Loss Estimated Blood Loss: 10 Medication(s) Medication(s): Fentanyl, Heparin, Lidocaine 1%, Nicardipine, Nitroglycerin and Versed Summary of Findings Indication: History of moderate CAD on prior cath 2017. History of repeated stress-induced cardiomyopathy. Recurrent chest pain and LV dysfunction. Access: 6 Fr slender right radial artery Catheters: [place] Findings: LM -Short, normal caliber LAD -medium caliber, calcified, 50% proximal to mid segment disease, 30% mid segment disease. Distal vessel without significant disease and extends around apex. Small D1 40% mid. Medium D2 without significant disease. Circumflex -medium caliber, 30 to 40% mid segment disease. Large OM 3 without significant disease. RCA -dominant, medium caliber, 20-30% proximal to mid disease. Distal vessel without significant disease. Small PDA, PLB without significant disease. LVEDP -18 Arterial Closure: TR band Summary: 1. Mild to moderate nonobstructive coronary artery disease -50% proximal to mid LAD 30-40% mid circumflex 20-30% proximal to mid RCA 2. Borderline intracardiac filling pressure Recommendations: No acute or high risk findings to explain recent symptoms and new LV dysfunction. Suspect stress-induced cardiomyopathy. Continued ASCVD risk factor modification per Dr. Schwartz Hemodynamics Rest Ao:: 106/60/88 Final Ao: 92/57/74 LV: 100/18 Recommendations Recommendations: Medical Therapy and/or Counseling Specimens Specimens: None Radiation Exposure (mGy) 445 Contrast (mls) 50 Anesthesia 7617-1667 Procedural Complication(s) None Disposition Drying Can Worker Holding/Recovery I attest to the content of the Intraoperative Record and any orders documented therein. Any exceptions are noted below. NeedishG Card Cath Procedure Codes Cardiac Catheterization Procedure 1: Cardiovascular Cath Procedures: 02950 Coronaries and LHC (+/-LV) Moderate Sedation Procedure 1: Sedation/Anesthesia: 10026 Mod Sedation by the same physician;Init15 Min Child Age 5 & Up PG Care Time/CCT Total # of Minutes Spent Total Time Spent with Patient: Total time spent is greater than 50% in coordination of care (as documented) at patient's floor/unit and/or counseling patient:
--- NOTE | 2024-05-17 16:18 | Communication Note ---
Date of Service: May 17, 2024 58-year-old female with history of Takotsubo cardiomyopathy was admitted with chest pain and noted to have NSTEMI underwent cardiac cath which showed moderate CAD and is for medical management. Was evaluated by anesthesiology fellow and the patient remains free from any pain. Will have full progress note tomorrow. DR Anh Loya
[2024-05-17] MEDS ORDERED: Nursing to Pharmacy Communication SCH (19:15)
[2024-05-17] MEDS: TOPIRAMATE 50 MG TAB PO SCH (20:09)
[2024-05-17] MEDS: PRAZOSIN HCL 1 MG CAP PO SCH (20:10)
--- NOTE | 2024-05-17 22:10 | Electrocardiogram Report ---
Test Reason : Blood Pressure : */* mmHG Vent. Rate : 77 BPM Atrial Rate : 77 BPM P-R Int : 184 ms QRS Dur : 74 ms QT Int : 380 ms P-R-T Axes : 33 12 52 degrees QTcB Int : 430 ms Poor data quality, interpretation may be adversely affected Normal sinus rhythm Low voltage QRS Borderline ECG When compared with ECG of 25-Mar-2024 14:32, Questionable change in QRS axis Confirmed by Rufus Dyer ([id number]) on 05/17/2024 10:10:15 PM Referred By: REFERRED SELF Confirmed By: Rufus Dyer
--- NOTE | 2024-05-17 22:10 | Electrocardiogram Report ---
Test Reason : Blood Pressure : */* mmHG Vent. Rate : 64 BPM Atrial Rate : 64 BPM P-R Int : 216 ms QRS Dur : 70 ms QT Int : 440 ms P-R-T Axes : 50 18 41 degrees QTcB Int : 453 ms Sinus rhythm with 1st degree A-V block Low voltage QRS Borderline ECG When compared with ECG of 16-May-2024 20:49, TN interval has increased Confirmed by Rufus Dyer ([id number]) on 05/17/2024 10:10:31 PM Referred By: REFERRED SELF Confirmed By: Rufus Dyer
--- NOTE | 2024-05-17 22:11 | Electrocardiogram Report ---
Test Reason : Blood Pressure : */* mmHG Vent. Rate : 65 BPM Atrial Rate : 65 BPM P-R Int : 208 ms QRS Dur : 74 ms QT Int : 440 ms P-R-T Axes : 37 14 81 degrees QTcB Int : 457 ms Sinus rhythm with 1st degree A-V block Low voltage QRS Nonspecific T wave abnormality When compared with ECG of 16-May-2024 23:36, Nonspecific T wave abnormality now evident in Lateral leads Confirmed by Rufus Dyer ([id number]) on 05/17/2024 10:11:02 PM Referred By: REFERRED SELF Confirmed By: Rufus Dyer
[2024-05-17] MEDS: clonazePAM 0.5 MG TAB PO PRN (22:43)
--- NOTE | 2024-05-18 07:27 | Electrocardiogram Report ---
Test Reason : Blood Pressure : */* mmHG Vent. Rate : 81 BPM Atrial Rate : 81 BPM P-R Int : 200 ms QRS Dur : 76 ms QT Int : 436 ms P-R-T Axes : 53 32 141 degrees QTcB Int : 506 ms Normal sinus rhythm Low voltage QRS T wave abnormality, consider lateral ischemia Abnormal ECG When compared with ECG of 17-May-2024 08:33, Inverted T waves have replaced nonspecific T wave abnormality in Lateral leads Confirmed by Danyel Cabral ([id number]) on 05/18/2024 7:26:54 AM Referred By: REFERRED SELF Confirmed By: Danyel Cabral
[2024-05-18 07:36] LABS: Basophils # (auto) 0.04 K/uL (0.00-0.20); Basophils % (auto) 0.7 %; Eosinophils % (auto) 3.3 %; Hematocrit (blood only) 29.6 % (37.0-47.0); Hemoglobin 9.8 g/dl (12.0-16.0); Immature Granulocytes # (auto) 0.01 K/uL (0.01-0.20); Immature Granulocytes % (auto) 0.2 %; Lymphocytes # (auto) 1.73 K/uL (1.20-3.40); Lymphocytes % (auto) 28.9 %; Mean Corpuscular Hemoglobin 28.4 pg (25.0-34.0); Mean Corpuscular Hgb Conc 33.1 g/dL (32.0-36.0); Mean Corpuscular Volume 85.8 fL (80.0-100.0); Mean Platelet Volume 9.7 fL (9.4-12.4); Monocytes # (auto) 0.59 K/uL (0.11-0.59); Monocytes % (auto) 9.9 %; Neutrophils # (auto) 3.41 K/uL (1.40-6.50); Platelet Count 201 K/uL (130-400); RDW Coefficient of Variation 12.9 % (11.5-14.5); Red Blood Count 3.45 M/uL (4.20-5.40); White Blood Count 5.98 K/ul (4.8-10.8)
[2024-05-18] MEDS: ATORVASTATIN 40 MG TAB PO SCH (07:52)
[2024-05-18 08:03] LABS: BUN Creatinine Ratio 16.9 (10-20); Creatinine Clr Calc Pharmacy 51.4 ml/min; Est GFR (African American) 58.1 ml/min; Est GFR (Non-African American) 50.1 ml/min; Magnesium 1.9 mg/dl (1.7-2.4); Potassium 4.3 mmol/L (3.5-5.1)
--- NOTE | 2024-05-18 08:50 | Cardiology Progress Note ---
Date of Service May 18, 2024 Assessment & Plan (1) Takotsubo cardiomyopathy: Plan: Echocardiogram performed 05/17/2024 revealed severe diffuse hypokinesis of the mid and apical segments of the left ventricle with relative sparing of the basal segments, severe left ventricular systolic dysfunction LVEF in the range of 25 to 30%. Similar to echocardiogram performed in 2014 when she presented with similar symptoms with normal ejection fraction noted in the interim. Underwent invasive coronary angiography yesterday for the third time (previous procedures in 2014 and 2016) due to concerns of history of underlying CAD and patient was found to have moderate nonobstructive disease with 50% proximal to mid LAD, 30 to 40% mid circumflex, 20 to 30% proximal mid RCA, LVEDP 18. Ongoing medical management recommended. Continue aspirin 81 mg daily, metoprolol succinate 12.5 mg daily, atorvastatin 40 mg daily. She is not on an SUMEET inhibitor, ARB, or ARNI due to relative low blood pressure. She has not on MRA agent such as spironolactone due to relative low blood pressure. Continue treatment for anxiety including sertraline, Topamax, bupropion. Start subcutaneous heparin for DVT prophylaxis. Increase activity as tolerated. Admission and Anticipated Discharge Date Admission Date: May 17, 2024 Subjective Patient seen in cardiology follow-up of complaints of chest discomfort, shortness of breath, catecholamine induced cardiomyopathy. Per patient description and review of nursing notes, patient described midsternal chest discomfort, shortness of breath at 2254 last evening. Symptoms resolved spontaneously after 5 minutes. EKG performed at that time as well as repeats this morning notable for new T wave inversions in the lateral precordial leads. High sensitive troponin obtained on 05/17/2024 and had trended down to 349 having 122 PG per mL on presentation on 05/16/2024. Telemetry reveals sinus rhythm in the 60s without arrhythmia. Physical Exam Physical Exam: General: no acute distress and stated age, anxious Eyes: conjunctiva are pink and non-injected, sclera clear Neck: normal jugular venous pulse, no hepatojugular reflux Chest: normal shape and normal respiratory effort Lungs: clear to auscultation and percussion Cardiac Exam: - regular heart sounds, no murmurs, rubs, or gallops, no jugular venous distention Abdomen: abdomen soft, non-tender, no abnormal masses and no hepatosplenomegaly Musculoskeletal: no gait disturbance, no weakness Extremities: no edema and no cyanosis -Right radial catheterization site clean dry and intact Neuro:awake, conversant, follows commands, no focal motor deficits Results & Data Vital Signs (Past 12 Hours) Vital Signs Temp Pulse Pulse Resp BP Pulse Ox O2 Del Method 05/18/24 07:49 37.0 C 70 18 101/59 L 96 Room Air 05/18/24 04:18 36.7 C 69 16 94/60 L 95 Room Air 05/18/24 00:08 36.6 C 86 16 89/54 L 96 Room Air 05/17/24 21:38 79 Laboratory Results Cardiac Enzymes 05/17/24 05/17/24 05/17/24 Range/Units 12:20 17:46 22:54 Troponin I High Sens 189.1 H* D 358.8 H* D 349.0 H* (0-14) pg/ml CBC 05/18/24 Range/Units 07:01 WBC 5.98 (4.8-10.8) K/ul RBC 3.45 L (4.20-5.40) M/uL Hgb 9.8 L (12.0-16.0) g/dl Hct 29.6 L (37.0-47.0) % Plt Count 201 (130-400) K/uL Neut # (Auto) 3.41 (1.40-6.50) K/uL Lymph # (Auto) 1.73 (1.20-3.40) K/uL Scott # (Auto) 0.59 (0.11-0.59) K/uL Eos # (Auto) 0.20 (0.00-0.50) K/uL Baso # (Auto) 0.04 (0.00-0.20) K/uL Comprehensive Metabolic Panel 05/18/24 Range/Units 07:01 Sodium 140 (136-145) mmol/L Potassium 4.3 (3.5-5.1) mmol/L Chloride 111 H (98-107) mmol/L Carbon Dioxide 25 (21-32) mmol/L BUN 20 (6-23) mg/dl Creatinine 1.18 (0.6-1.2) mg/dl Glucose 168 H (70-99(Fasting)) mg/dl Calcium 8.0 L (8.6-10.3) mg/dl Intake and Output 05/17/24 05/18/24 05/18/24 22:59 06:59 14:59 Intake Total 1184.25 / 2321.75 1028.75 / 2321.75 Balance 1184.25 / 2321.75 1028.75 / 2321.75 Intake: IV 1184.25 / 2196.75 903.75 / 2196.75 Heparin Sodium/Dextrose 25,000 184.25 / 293.00 units In 500 ml @ 850 UNITS/HR 17 mls/hr IV .Q24H HUSSAIN Rx#: [id number] Sodium Chloride 0.9% 1,000 ml @ 1000 / 1903.75 903.75 / 1903.75 75 mls/hr IV .[id number] HUSSAIN Rx#: [id number] Oral 125 / 125 Other: # Unmeasured Voids 1 Weight 75.1 kg Weight Measurement Method Built in [facility] Diagnostic Findings EKG tracings overnight last night and this morning interpret independently as noted in HPI.
[2024-05-18] MEDS: ENOXAPARIN INJ 40 MG/0.4 ML SYR SQ SCH (10:19)
--- NOTE | 2024-05-18 11:35 | Electrocardiogram Report ---
Test Reason : Blood Pressure : */* mmHG Vent. Rate : 66 BPM Atrial Rate : 66 BPM P-R Int : 226 ms QRS Dur : 70 ms QT Int : 496 ms P-R-T Axes : 60 50 142 degrees QTcB Int : 519 ms Poor data quality, interpretation may be adversely affected Sinus rhythm with 1st degree A-V block Low voltage QRS T wave abnormality, consider lateral ischemia Prolonged QT Abnormal ECG When compared with ECG of 17-May-2024 22:32, T wave inversion now evident in Anterior leads Confirmed by Danyel Cabral ([id number]) on 05/18/2024 11:35:50 AM Referred By: REFERRED SELF Confirmed By: Danyel Cabral
--- NOTE | 2024-05-18 15:39 | Hospitalist Progress Note ---
Date of Service May 18, 2024 Assessment & Plan (1) Takotsubo cardiomyopathy: Plan: Takotsubo cardiomyopathy diagnosed in 2014 Presented with on and off chest pain for more than 1 week Echo of the heart that was done on of this month showed severe diffuse hypokinesis of the mid and apical segments of the left ventricle with relative sparing of the basal segments, severe left ventricular systolic dysfunction with EF of 25 to 30%. No significant change compared with prior echocardiogram Status post cardiac cath did show nonobstructive disease with 50% proximal to mid LAD and 30 to 40% mid circumflex and 20 to 30% proximal mid RCA obstruction. Medical management contemplated Appreciate cardiology input and recommendation Remains free from any pain since this morning Will continue current management-cannot use any spironolactone and/or SUMEET inhib itor/ARB due to hypotension (2) Chest pain: Plan: Echocardiogram showed EF of Non-ST elevated SD On and off chest pains for 1 week EKG no acute findings CTA chest no PE Initial troponin 922 And repeat is 661 ER started on IV heparin which was subsequently discontinued (3) NSTEMI (non-ST elevated myocardial infarction): Plan: 58-year-old female with past medical history significant for hypercholesteremia, diabetes mellitus, asthma in remission, lung nodule, history of Takotsubo cardiomyopathy x 2, atherosclerotic cardiovascular disease, irritable bowel syndrome, GERD, stage III chronic kidney disease history of subdural hematoma, history of PTSD associated nightmares, migraine variant, chronic anxiety, history of recurrent UTI, depression comes because of chest pains on and off since last 1 week. Patient states chest pain is about 7/10 in severity. Also last Monday she had couple of episodes of near syncope's and then had episode of 30 seconds of unresponsiveness at doctors office on Monday. During unresponsive episode she did not fall but she was staring and not responsive to any stimuli. She saw neurology yesterday and thought mostly vasovagal syncope and plan for EEG next Monday. After going home again she was having chest pains and was feeling very anxious and her heart was pounding and she was feeling could not breathe and could not climb steps and decided to come to the ER. Her blood pressure usually runs low and she is also on medications prazosin for nightmares which makes blood pressure low per patient. She did not take her prazosin tonight. Currently still feels short of breath. Having some headaches. Vision is okay. No runny nose or sore throat. No cough. No difficulty swallowing. Denies nausea. No abdominal pain. Normal bowel and bladder movements. Resting comfortably in the bed and was able to give her history. Hypotension Recent presyncope's and episode of unresponsiveness Neurology thought possibly vasovagal Will hold lisinopril and spironolactone Gentle fluids Remains hypotensive with blood pressure around 96/62 Asymptomatic at rest Will continue very small dose of beta-lucia but cannot take any SUMEET I or ARB or any spironolactone given ICD placed with [place] ICD is not given this patient Diabetes Hold metformin Sliding scale Hemoglobin A1c is 5.9 which has not changed since 03/30/2018 Hypercholesterolemia On Zocor CKD stage III Presented creatinine 1.3 Seems around baseline Will follow labs-creatinine has been normalized PTSD Depression Chronic anxiety History of panic attacks Continue home medications History of recurrent UTI Follow UA GERD On Protonix DVT prophylaxis On IV heparin Disposition Telemetry Full code. (4) Nonobstructive atherosclerosis of coronary artery: Admission and Anticipated Discharge Date Admission Date: May 17, 2024 Subjective 05/18/2024 The patient was seen and examined in telemetry unit in presence of the mother She has had chest pain last night and apparent EKG and troponin were negative Has been feeling better this morning and denies any significant symptoms Review of Systems Review of Systems: All systems reviewed and are unremarkable except as noted below Physical Exam Constitutional: well developed, well nourished, + ill appearing and + obese Eyes: PERRL, conjunctivae normal, anicteric sclerae ENMT: external ear and nose normal, oropharynx normal Neck: trachea midline, no thyromegaly Respiratory: no respiratory distress Auscultation: lungs clear to auscultation bilaterally Cardiovascular: Rate/Rhythm: regular rate and regular rhythm; not tachycardic Heart Sounds: normal S1 and normal S2; no murmur Extremities: no edema Gastrointestinal (Abdomen): Inspection/Auscultation: normal bowel sounds; abdomen not distended Percussion/Palpation: + abdomen tender and abdomen soft Musculoskeletal: No acute arthritis involving any of the joints Neurologic: normal touch/pain/proprioception and moves all extremities; no focal motor deficits Psychiatric: A+Ox3, euthymic affect Lymphatic: no cervical or axillary lymphadenopathy Results & Data Results & Data Vital Signs (Past 12 Hours) Vital Signs Temp Pulse Pulse Resp BP Pulse Ox O2 Del Method 05/18/24 14:44 68 05/18/24 11:00 36.9 C 88 20 96/62 L 97 Room Air 05/18/24 08:00 66 05/18/24 08:00 Room Air 05/18/24 07:49 37.0 C 70 18 101/59 L 96 Room Air 05/18/24 04:18 36.7 C 69 16 94/60 L 95 Room Air Laboratory Results Short CBC 05/18/24 Range/Units 07:01 WBC 5.98 (4.8-10.8) K/ul Hgb 9.8 L (12.0-16.0) g/dl Hct 29.6 L (37.0-47.0) % Plt Count 201 (130-400) K/uL BMP 05/18/24 07:01 Sodium 140 Potassium 4.3 Chloride 111 H Carbon Dioxide 25 BUN 20 Creatinine 1.18 Glucose 168 H Calcium 8.0 L Slurred speech Medications Administered Current Inpatient Medications Acetaminophen (Acetaminophen 325 Mg Tab) 650 mg PO Q4H PRN PRN Reason: Pain or Fever Stop: 06/16/24 03:54 Last Admin: 05/17/24 19:50 Dose: 650 mg Albuterol (Albuterol Hfa 8 Gm Inhaler) 1 puffs INH Q4H PRN PRN Reason: PANIC ATTACKS Stop: 06/16/24 03:54 Amphetamine/Dextroamphetamine (Dextroamphetamine/Amphetamine Ir 20 Mg Tab) 20 mg PO BID@0700,1400 [facility] Stop: 05/31/24 06:59 Last Admin: 05/18/24 13:48 Dose: 20 mg Aspirin (Aspirin 81 Mg Ectab) 81 mg PO QAM [facility] Stop: 06/16/24 10:14 Last Admin: 05/18/24 07:52 Dose: 81 mg Atorvastatin Calcium (Atorvastatin 40 Mg Tab) 40 mg PO QAM [facility] Stop: 06/17/24 08:59 Last Admin: 05/18/24 07:52 Dose: 40 mg Bupropion HCl (Bupropion Sr 100 Mg Tabcr) 100 mg PO DAILY [facility] Stop: 06/16/24 08:59 Last Admin: 05/18/24 07:52 Dose: 100 mg Clonazepam (Clonazepam 0.5 Mg Tab) 0.5 mg PO TID PRN PRN Reason: Anxiety Stop: 06/16/24 03:54 Last Admin: 05/18/24 06:19 Dose: 0.5 mg Dextrose (Dextrose 50% 50 Ml Syringe) 25 - 50 ml IV UD PRN; Protocol PRN Reason: Hypoglycemia Protocol Stop: 06/16/24 04:00 Dicyclomine HCl (Dicyclomine Hcl 10 Mg Cap) 10 mg PO BID [facility]USSAIN Stop: 06/16/24 08:59 Last Admin: 05/18/24 07:53 Dose: 10 mg Enoxaparin Sodium (Enoxaparin Inj 40 Mg/0.4 Ml Syr) 40 mg SQ QAM [facility]USSAIN Stop: 06/17/24 08:59 Last Admin: 05/18/24 10:19 Dose: 40 mg Glucagon (Glucagon For Inj 1 Mg Vial) 1 mg SQ UD PRN; Protocol PRN Reason: Hypoglycemia Protocol Stop: 06/16/24 04:00 Glucose (Glucose 40% Gel 15 Gm Tube) 15 - 30 gm PO UD PRN; Protocol PRN Reason: Hypoglycemia Protocol Stop: 06/16/24 04:00 Glucose (Glucose 10 Tab/Tube) 4 - 8 tab PO UD PRN; Protocol PRN Reason: Hypoglycemia Treatment Stop: 06/16/24 04:00 Sodium Chloride (Nss) 1,000 mls @ 75 mls/hr IV .[id number] [facility]USSAIN Stop: 06/16/24 03:54 Last Admin: 05/18/24 06:19 Dose: 75 mls/hr Insulin Aspart (Insulin Aspart Per Unit Charge) 0 units SC ACHS [facility] Stop: 06/16/24 20:59 Last Admin: 05/18/24 11:50 Dose: Not Given Metoprolol Succinate (Metoprolol Succ 25mg Ext Rel Tab) 12.5 mg PO QAM [facility] Stop: 06/16/24 10:14 Last Admin: 05/18/24 07:52 Dose: 12.5 mg Miscellaneous (Estrace~Order Awaiting Action) 1 each N/A QS [facility]US[facility]IN Stop: 06/16/24 07:59 Last Admin: 05/18/24 15:24 Dose: Not Given Miscellaneous (Tretinoin 0.1% Gel~Order Awaiting Action) 1 each N/A QS [facility] Stop: 06/16/24 07:59 Last Admin: 05/18/24 15:24 Dose: Not Given Miscellaneous (Carbohydrates For Hypoglycemia ) 15 - 30 gm PO UD PRN PRN Reason: Hypoglycemia Protocol Stop: 06/16/24 04:00 Nitroglycerin (Nitroglycerin Sl 0.4 Mg/Tab Tab) 0.4 mg SL Q5M PRN PRN Reason: Chest Pain Stop: 06/16/24 03:54 Pantoprazole Sodium (Pantoprazole 40 Mg Tab) 40 mg PO QAM [facility] Stop: 06/16/24 08:59 Last Admin: 05/18/24 07:53 Dose: 40 mg Polyethylene Glycol (Polyethylene (Miralax) 17 Gm Pack) 17 gm PO DAILY PRN PRN Reason: Constipation Stop: 06/16/24 03:54 Prazosin HCl (Prazosin Hcl 1 Mg Cap) 5 mg PO [facility] Stop: 06/16/24 20:59 Last Admin: 05/17/24 20:10 Dose: 5 mg Sertraline HCl (Sertraline Hcl 100 Mg Tablet) [facility] Stop: 06/16/24 08:59 Last Admin: 05/18/24 07:52 Dose: 100 mg Topiramate (Topiramate 50 Mg Tab) 50 mg PO [facility] Stop: 06/16/24 20:59 Last Admin: 05/17/24 20:09 Dose: 50 mg (2) Chest pain Chest pain type: unspecified Qualified Code(s): R07.9 - Chest pain, unspecified
--- NOTE | 2024-05-19 07:37 | Electrocardiogram Report ---
Test Reason : Blood Pressure : */* mmHG Vent. Rate : 58 BPM Atrial Rate : 58 BPM P-R Int : 218 ms QRS Dur : 72 ms QT Int : 506 ms P-R-T Axes : 40 23 154 degrees QTcB Int : 496 ms Sinus bradycardia with 1st degree A-V block Low voltage QRS T wave abnormality, consider lateral ischemia Abnormal ECG When compared with ECG of 18-May-2024 06:32, No significant change was found Confirmed by Danyel Cabral ([id number]) on 05/19/2024 7:37:42 AM Referred By: REFERRED SELF Confirmed By: Danyel Cabral
[2024-05-19 07:43] LABS: Basophils # (auto) 0.04 K/uL (0.00-0.20); Basophils % (auto) 0.8 %; Eosinophils # (auto) 0.24 K/uL (0.00-0.50); Hematocrit (blood only) 28.7 % (37.0-47.0); Hemoglobin 9.3 g/dl (12.0-16.0); Immature Granulocytes # (auto) 0.01 K/uL (0.01-0.20); Immature Granulocytes % (auto) 0.2 %; Lymphocytes # (auto) 1.73 K/uL (1.20-3.40); Lymphocytes % (auto) 36.1 %; Mean Corpuscular Hemoglobin 28.2 pg (25.0-34.0); Mean Corpuscular Hgb Conc 32.4 g/dL (32.0-36.0); Mean Platelet Volume 9.7 fL (9.4-12.4); Monocytes # (auto) 0.53 K/uL (0.11-0.59); Monocytes % (auto) 11.1 %; Neutrophils # (auto) 2.24 K/uL (1.40-6.50); Neutrophils % (auto) 46.8 %; Platelet Count 189 K/uL (130-400); RDW Coefficient of Variation 12.9 % (11.5-14.5); RDW Standard Deviation 40.8 fL (36.4-46.3); White Blood Count 4.79 K/ul (4.8-10.8)
[2024-05-19 08:02] LABS: BUN Creatinine Ratio 17.5 (10-20); Calcium 7.8 mg/dl (8.6-10.3); Creatinine Clr Calc Pharmacy 59.3 ml/min; Est GFR (African American) 68.4 ml/min; Magnesium 1.8 mg/dl (1.7-2.4)
--- NOTE | 2024-05-19 11:01 | Cardiology Progress Note ---
Date of Service May 19, 2024 Assessment & Plan (1) Takotsubo cardiomyopathy: Plan: Echocardiogram performed 05/17/2024 revealed severe diffuse hypokinesis of the mid and apical segments of the left ventricle with relative sparing of the basal segments, severe left ventricular systolic dysfunction LVEF in the range of 25 to 30%. Similar to echocardiogram performed in 2014 when she presented with similar symptoms with normal ejection fraction noted in the interim. Underwent invasive coronary angiography yesterday for the third time (previous procedures in 2014 and 2016) due to concerns of history of underlying CAD and patient was found to have moderate nonobstructive disease with 50% proximal to mid LAD, 30 to 40% mid circumflex, 20 to 30% proximal mid RCA, LVEDP 18. Ongoing medical management recommended. Continue aspirin 81 mg daily, metoprolol succinate 12.5 mg daily, atorvastatin 40 mg daily. She is not on an SUMEET inhibitor, ARB, or ARNI due to relative low blood pressure. She has not on MRA agent such as spironolactone due to relative low blood pressure. Continue treatment for anxiety including sertraline, Topamax, bupropion. Discontinue IV and normal saline at 75 mL an hour. Recommend PA lateral chest x-ray in the radiology department. Will consider treatment with 20 mg of furosemide x 1 given her going mild shortness of breath. Start subcutaneous heparin for DVT prophylaxis. Increase activity as tolerated. Admission and Anticipated Discharge Date Admission Date: May 17, 2024 Subjective Patient seen in cardiology follow-up. Notes mild shortness of breath. Does not appear to be in any acute distress. No intense chest pain episodes. Heavy perspiration noted. Telemetry reveals sinus rhythm in the 70s without arrhythmia. Physical Exam Physical Exam: General: no acute distress and stated age, anxious Eyes: conjunctiva are pink and non-injected, sclera clear Neck: normal jugular venous pulse, no hepatojugular reflux Chest: normal shape and normal respiratory effort Lungs: Mildly decreased breath sounds at the bases Cardiac Exam: - regular heart sounds, no murmurs, rubs, or gallops, no jugular venous distention Abdomen: abdomen soft, non-tender, no abnormal masses and no hepatosplenomegaly Musculoskeletal: no gait disturbance, no weakness Extremities: no edema and no cyanosis -Right radial catheterization site clean dry and intact Neuro:awake, conversant, follows commands, no focal motor deficits Results & Data Vital Signs (Past 12 Hours) Vital Signs Temp Pulse Pulse Resp BP Pulse Ox O2 Del Method 05/19/24 07:45 57 L 05/19/24 07:45 Room Air 05/19/24 07:36 36.7 C 65 18 93/54 L 98 Room Air 05/19/24 03:00 36.7 C 75 16 92/56 L 97 Room Air 05/18/24 23:00 36.8 C 79 18 91/54 L 94 Room Air Laboratory Results CBC 05/19/24 Range/Units 07:05 WBC 4.79 L (4.8-10.8) K/ul RBC 3.30 L (4.20-5.40) M/uL Hgb 9.3 L (12.0-16.0) g/dl Hct 28.7 L (37.0-47.0) % Plt Count 189 (130-400) K/uL Neut # (Auto) 2.24 (1.40-6.50) K/uL Lymph # (Auto) 1.73 (1.20-3.40) K/uL [place] # (Auto) 0.53 (0.11-0.59) K/uL Eos # (Auto) 0.24 (0.00-0.50) K/uL Baso # (Auto) 0.04 (0.00-0.20) K/uL Comprehensive Metabolic Panel 05/19/24 Range/Units 07:05 Sodium 139 (136-145) mmol/L Potassium 4.0 (3.5-5.1) mmol/L Chloride 111 H (98-107) mmol/L Carbon Dioxide 25 (21-32) mmol/L BUN 18 (6-23) mg/dl Creatinine 1.03 (0.6-1.2) mg/dl Glucose 180 H (70-99(Fasting)) mg/dl Calcium 7.8 L (8.6-10.3) mg/dl Intake and Output 05/18/24 05/19/24 05/19/24 22:59 06:59 14:59 Intake Total 1218.75 / 1458.75 240 / 1458.75 1170.00 / 1170.00 Balance 1218.75 / 1458.75 240 / 1458.75 1170.00 / 1170.00 Intake: IV 978.75 / 978.75 1170.00 / 1170.00 Sodium Chloride 0.9% 1,000 ml @ 978.75 / 978.75 1170.00 / 1170.00 75 mls/hr IV .[id number] [facility]USSAIN Rx#: [id number] Oral 240 / 480 240 / 480 Other: Weight 76.3 kg Weight Measurement Method Built in [facility] Diagnostic Findings EKG performed today 05/19/2024 and interpreted independently: Sinus bradycardia 58 bpm, first-degree AV block, lateral T wave changes, unchanged.
--- NOTE | 2024-05-19 11:38 | XRay Report ---
XR chest 2V PA/lateral CLINICAL HISTORY: sob, assess for chf COMPARISON STUDY: Chest radiograph and chest CT May 16, 2024. FINDINGS: There is no pneumothorax. Trace bilateral pleural effusions are present. An azygos fissure is incidentally noted. Note is again made of a hiatal hernia. Cardiomediastinal silhouette is unremar kable. There is no radiographic evidence for pulmonary edema. There is no consolidation to suggest pn eumonia. IMPRESSION: 1. No radiographic evidence for pulmonary edema. 2. Trace bilateral pleural effusions. 3. Hiatal hernia. ACT 112: Negative or not required by law. Electronically signed by: Jamarcus Hooper M.D. 05/19/2024 11:36 AM
--- NOTE | 2024-05-19 14:46 | Hospitalist Progress Note ---
Date of Service May 19, 2024 Assessment & Plan (1) Takotsubo cardiomyopathy: Plan: Takotsubo cardiomyopathy diagnosed in 2014 Presented with on and off chest pain for more than 1 week Echo of the heart that was done on of this month showed severe diffuse hypokinesis of the mid and apical segments of the left ventricle with relative sparing of the basal segments, severe left ventricular systolic dysfunction with EF of 25 to 30%. No significant change compared with prior echocardiogram Status post cardiac cath did show nonobstructive disease with 50% proximal to mid LAD and 30 to 40% mid circumflex and 20 to 30% proximal mid RCA obstruction. Medical management contemplated Appreciate cardiology input and recommendation Remains free from any pain since this morning Will continue current management-cannot use any spironolactone and/or SUMEET inh ibitor/ARB due to hypotension Has been complaining of some shortness of breath and low blood pressure IV fluid has been discontinued Chest x-ray did not show any evidence of CSF Will monitor in the telemetry unit (2) Chest pain: Plan: Echocardiogram showed EF of Non-ST elevated [place] On and off chest pains for 1 week EKG no acute findings CTA chest no PE Initial troponin 922 And repeat is 661 ER started on IV heparin which was subsequently discontinued Still has some chest pain off and on (3) NSTEMI (non-ST elevated myocardial infarction): Plan: 58-year-old female with past medical history significant for hypercholesteremia, diabetes mellitus, asthma in remission, lung nodule, history of Takotsubo cardiomyopathy x 2, atherosclerotic cardiovascular disease, irritable bowel syndrome, GERD, stage III chronic kidney disease history of subdural hematoma, history of PTSD associated nightmares, migraine variant, chronic anxiety, history of recurrent UTI, depression comes because of chest pains on and off since last 1 week. Patient states chest pain is about 7/10 in severity. Also last Monday she had couple of episodes of near syncope's and then had episode of 30 seconds of unresponsiveness at doctors office on Monday. During unresponsive episode she did not fall but she was staring and not responsive to any stimuli. She saw neurology yesterday and thought mostly vasovagal syncope and plan for EEG next Monday. After going home again she was having chest pains and was feeling very anxious and her heart was pounding and she was feeling could not breathe and could not climb steps and decided to come to the ER. Her blood pressure usually runs low and she is also on medications prazosin for nightmares which makes blood pressure low per patient. She did not take her prazosin tonight. Currently still feels short of breath. Having some headaches. Vision is okay. No runny nose or sore throat. No cough. No difficulty swallowing. Denies nausea. No abdominal pain. Normal bowel and bladder movements. Resting comfortably in the bed and was able to give her history. Hypotension Recent presyncope's and episode of unresponsiveness Neurology thought possibly vasovagal Will hold lisinopril and spironolactone Gentle fluids Remains hypotensive with blood pressure around 96/62 Asymptomatic at rest Will continue very small dose of beta-lucia but cannot take any SUMEET I or ARB or any spironolactone given ICD placed with [place] ICD is not given this patient Blood pressure remains stable on the lower level at 117/71 Diabetes Hold metformin Sliding scale Hemoglobin A1c is 5.9 which has not changed since 03/30/2018 Hypercholesterolemia On Zocor CKD stage III Presented creatinine 1.3 Seems around baseline Will follow labs-creatinine has been normalized PTSD Depression Chronic anxiety History of panic attacks Continue home medications History of recurrent UTI Follow UA GERD On Protonix DVT prophylaxis On IV heparin Disposition Telemetry Full code. (4) Nonobstructive atherosclerosis of coronary artery: Admission and Anticipated Discharge Date Admission Date: May 17, 2024 Subjective 05/18/2024 The patient was seen and examined in telemetry unit in presence of the mother She has had chest pain last night and apparent EKG and troponin were negative Has been feeling better this morning and denies any significant symptoms 05/19/2024 The patient was seen and examined in telemetry unit She has been complaining of chest pain and the blood pressure noted to be low Continues to have some shortness of breath and the intravenous fluid has been discontinued Will need to observe for today Review of Systems Review of Systems: All systems reviewed and are unremarkable except as noted below Physical Exam Constitutional: well developed, well nourished, + ill appearing and + obese Eyes: PERRL, conjunctivae normal, anicteric sclerae ENMT: external ear and nose normal, oropharynx normal Neck: trachea midline, no thyromegaly Respiratory: no respiratory distress Auscultation: lungs clear to auscultation bilaterally (Minimal crackles at the bases) Cardiovascular: Rate/Rhythm: regular rate and regular rhythm; not tachycardic Heart Sounds: normal S1 and normal S2; no murmur Extremities: no edema Gastrointestinal (Abdomen): Inspection/Auscultation: normal bowel sounds; abdomen not distended Percussion/Palpation: + abdomen tender and abdomen soft Neurologic: normal touch/pain/proprioception and moves all extremities; no focal motor deficits Psychiatric: A+Ox3, euthymic affect Lymphatic: no cervical or axillary lymphadenopathy Results & Data Results & Data Vital Signs (Past 12 Hours) Vital Signs Temp Pulse Pulse Resp BP Pulse Ox O2 Del Method 05/19/24 14:35 63 05/19/24 11:42 36.7 C 67 18 117/71 98 Room Air 05/19/24 07:45 57 L 05/19/24 07:45 Room Air 05/19/24 07:36 36.7 C 65 18 93/54 L 98 Room Air 05/19/24 03:00 36.7 C 75 16 92/56 L 97 Room Air Laboratory Results Short CBC 05/19/24 Range/Units 07:05 WBC 4.79 L (4.8-10.8) K/ul Hgb 9.3 L (12.0-16.0) g/dl Hct 28.7 L (37.0-47.0) % Plt Count 189 (130-400) K/uL BMP 05/19/24 07:05 Sodium 139 Potassium 4.0 Chloride 111 H Carbon Dioxide 25 BUN 18 Creatinine 1.03 Glucose 180 H Calcium 7.8 L Replace much Medications Administered Current Inpatient Medications Acetaminophen (Acetaminophen 325 Mg Tab) 650 mg PO Q4H PRN PRN Reason: Pain or Fever Stop: 06/16/24 03:54 Last Admin: 05/18/24 20:40 Dose: 650 mg Albuterol (Albuterol Hfa 8 Gm Inhaler) 1 puffs INH Q4H PRN PRN Reason: PANIC ATTACKS Stop: 06/16/24 03:54 Amphetamine/Dextroamphetamine (Dextroamphetamine/Amphetamine Ir 20 Mg Tab) 20 mg PO BID@0700,1400 [facility] Stop: 05/31/24 06:59 Last Admin: 05/19/24 13:57 Dose: 20 mg Aspirin (Aspirin 81 Mg Ectab) 81 mg PO QAM [facility] Stop: 06/16/24 10:14 Last Admin: 05/19/24 07:45 Dose: 81 mg Atorvastatin Calcium (Atorvastatin 40 Mg Tab) 40 mg PO QAM [facility] Stop: 06/17/24 08:59 Last Admin: 05/19/24 07:45 Dose: 40 mg Bupropion HCl (Bupropion Sr 100 Mg Tabcr) 100 mg PO DAILY [facility] Stop: 06/16/24 08:59 Last Admin: 05/19/24 07:45 Dose: 100 mg Clonazepam (Clonazepam 0.5 Mg Tab) 0.5 mg PO TID PRN PRN Reason: Anxiety Stop: 06/16/24 03:54 Last Admin: 05/18/24 06:19 Dose: 0.5 mg Dextrose (Dextrose 50% 50 Ml Syringe) 25 - 50 ml IV UD PRN; Protocol PRN Reason: Hypoglycemia Protocol Stop: 06/16/24 04:00 Dicyclomine HCl (Dicyclomine Hcl 10 Mg Cap) 10 mg PO BID [facility] Stop: 06/16/24 08:59 Last Admin: 05/19/24 07:45 Dose: 10 mg Enoxaparin Sodium (Enoxaparin Inj 40 Mg/0.4 Ml Syr) 40 mg SQ QAM [facility] Stop: 06/17/24 08:59 Last Admin: 05/19/24 07:46 Dose: 40 mg Glucagon (Glucagon For Inj 1 Mg Vial) 1 mg SQ UD PRN; Protocol PRN Reason: Hypoglycemia Protocol Stop: 06/16/24 04:00 Glucose (Glucose 40% Gel 15 Gm Tube) 15 - 30 gm PO UD PRN; Protocol PRN Reason: Hypoglycemia Protocol Stop: 06/16/24 04:00 Glucose (Glucose 10 Tab/Tube) 4 - 8 tab PO UD PRN; Protocol PRN Reason: Hypoglycemia Treatment Stop: 06/16/24 04:00 Insulin Aspart (Insulin Aspart Per Unit Charge) 0 units SC ACHS [facility] Stop: 06/16/24 20:59 Last Admin: 05/19/24 12:00 Dose: 2 units Metoprolol Succinate (Metoprolol Succ 25mg Ext Rel Tab) 12.5 mg PO QAM [facility] Stop: 06/16/24 10:14 Last Admin: 05/19/24 07:46 Dose: Not Given Miscellaneous (Estrace~Order Awaiting Action) 1 each N/A QS [facility] Stop: 06/16/24 07:59 Last Admin: 05/19/24 07:13 Dose: Not Given Miscellaneous (Tretinoin 0.1% Gel~Order Awaiting Action) 1 each N/A QS [facility] Stop: 06/16/24 07:59 Last Admin: 05/19/24 07:13 Dose: Not Given Miscellaneous (Carbohydrates For Hypoglycemia ) 15 - 30 gm PO UD PRN PRN Reason: Hypoglycemia Protocol Stop: 06/16/24 04:00 Nitroglycerin (Nitroglycerin Sl 0.4 Mg/Tab Tab) 0.4 mg SL Q5M PRN PRN Reason: Chest Pain Stop: 06/16/24 03:54 Pantoprazole Sodium (Pantoprazole 40 Mg Tab) 40 mg PO QAM [facility] Stop: 06/16/24 08:59 Last Admin: 05/19/24 07:45 Dose: 40 mg Polyethylene Glycol (Polyethylene (Miralax) 17 Gm Pack) 17 gm PO DAILY PRN PRN Reason: Constipation Stop: 06/16/24 03:54 Prazosin HCl (Prazosin Hcl 1 Mg Cap) 5 mg PO HS [facility] Stop: 06/16/24 20:59 Last Admin: 05/18/24 20:41 Dose: 5 mg Sertraline HCl (Sertraline Hcl 100 Mg Tablet) 100 mg PO QAM [facility] Stop: 06/16/24 08:59 Last Admin: 05/19/24 07:46 Dose: 100 mg Topiramate (Topiramate 50 Mg Tab) 50 mg PO HS [facility] Stop: 06/16/24 20:59 Last Admin: 05/18/24 20:41 Dose: 50 mg (2) Chest pain Chest pain type: unspecified Qualified Code(s): R07.9 - Chest pain, unspecified
[2024-05-19] MEDS: POTASSIUM CHLORIDE 10 MEQ TABCR PO STA (15:26)
[2024-05-19] MEDS: FUROSEMIDE INJ 20 MG/2 ML VIAL IV ONE (15:26)
[2024-05-20 06:37] LABS: BUN Creatinine Ratio 15.8 (10-20); Calcium 8.2 mg/dl (8.6-10.3); Creatinine Clr Calc Pharmacy 53.4 ml/min; Est GFR (African American) 60.5 ml/min; Est GFR (Non-African American) 52.2 ml/min; Magnesium 1.8 mg/dl (1.7-2.4); Potassium 3.8 mmol/L (3.5-5.1)
[2024-05-20] MEDS: LORazepam 0.5 MG TAB PO STA (09:55)
--- NOTE | 2024-05-20 11:19 | Cardiology Progress Note ---
Date of Service May 20, 2024 Assessment & Plan (1) Takotsubo cardiomyopathy: Plan: Echocardiogram performed 05/17/2024 revealed severe diffuse hypokinesis of the mid and apical segments of the left ventricle with relative sparing of the basal segments, severe left ventricular systolic dysfunction LVEF in the range of 25 to 30%. Similar to echocardiogram performed in 2014 when she presented with similar symptoms with normal ejection fraction noted in the interim. Underwent invasive coronary angiography yesterday for the third time (previous procedures in 2014 and 2016) due to concerns of history of underlying CAD and patient was found to have moderate nonobstructive disease with 50% proximal to mid LAD, 30-40% mid circumflex, 20-30% proximal mid RCA, LVEDP 18. Ongoing medical management recommended. Continue aspirin 81 mg daily, metoprolol succinate 12.5 mg daily, atorvastatin 40 mg daily. She is not on an SUMEET inhibitor, ARB, or ARNI due to relative low blood pressure. She is not on MRA agent such as spironolactone due to relative low blood pressure. Continue treatment for anxiety including sertraline, Topamax, bupropion. Chest x-ray performed on 05/19/2024 suggested trace pleural effusions. IV fluids discontinued and patient received 10 mg of IV furosemide. Pulm status appears stable clinically at present. --- Discussed my advice to patient to increase activity, go for a walk in unit today. If she feels well after lunch, could consider discharge. Will arrange outpatient cardiology follow-up. Admission and Anticipated Discharge Date Admission Date: May 17, 2024 Subjective Patient seen in cardiology follow-up. She had a relatively uneventful night however this morning she had heavy perspiration to prompted her to have to change her pajamas. Telemetry reveals sinus rhythm in the 60s to 70s. Denies chest discomfort or shortness of breath at present. Physical Exam Physical Exam: General: no acute distress and stated age, anxious Eyes: conjunctiva are pink and non-injected, sclera clear Neck: normal jugular venous pulse, no hepatojugular reflux Chest: normal shape and normal respiratory effort Lungs: Mildly decreased breath sounds at the bases Cardiac Exam: - regular heart sounds, no murmurs, rubs, or gallops, no jugular venous distention Abdomen: abdomen soft, non-tender, no abnormal masses and no hepatosplenomegaly Musculoskeletal: no gait disturbance, no weakness Extremities: no edema and no cyanosis -Right radial catheterization site clean dry and intact Neuro:awake, conversant, follows commands, no focal motor deficits Results & Data Vital Signs (Past 12 Hours) Vital Signs Temp Pulse Pulse Resp BP Pulse Ox O2 Del Method 05/20/24 10:41 36.9 C 65 17 117/78 98 Room Air 05/20/24 07:45 Room Air 05/20/24 07:45 60 05/20/24 07:03 36.7 C 61 18 107/69 99 Room Air 05/20/24 03:27 36.5 C 65 18 104/66 96 Room Air Laboratory Results Comprehensive Metabolic Panel 05/20/24 Range/Units 05:36 Sodium 141 (136-145) mmol/L Potassium 3.8 (3.5-5.1) mmol/L Chloride 111 H (98-107) mmol/L Carbon Dioxide 26 (21-32) mmol/L BUN 18 (6-23) mg/dl Creatinine 1.14 (0.6-1.2) mg/dl Glucose 104 H (70-99(Fasting)) mg/dl Calcium 8.2 L (8.6-10.3) mg/dl Intake and Output 05/19/24 05/20/24 05/20/24 22:59 06:59 14:59 Intake Total 120 / 1290.00 Balance 120 / 1290.00 Intake: Oral 120 / 120 Other: # Unmeasured Voids 3 2 Weight 75.7 kg Weight Measurement Method Built in [facility] Diagnostic Findings EKG performed 05/19/2024 and interpret independently: Sinus bradycardia at 50 bpm first-degree AV block, lateral T wave changes noted, stable findings.
--- NOTE | 2024-05-20 12:48 | Hospitalist Progress Note ---
Date of Service May 20, 2024 Assessment & Plan (1) Takotsubo cardiomyopathy: Plan: Takotsubo cardiomyopathy diagnosed in 2014 Presented with on and off chest pain for more than 1 week Echo of the heart that was done on of this month showed severe diffuse hypokinesis of the mid and apical segments of the left ventricle with relative sparing of the basal segments, severe left ventricular systolic dysfunction with EF of 25 to 30%. No significant change compared with prior echocardiogram Status post cardiac cath did show nonobstructive disease with 50% proximal to mid LAD and 30 to 40% mid circumflex and 20 to 30% proximal mid RCA obstruction. Medical management contemplated Appreciate cardiology input and recommendation Remains free from any pain since this morning Will continue current management-cannot use any spironolactone and/or SUMEET inh ibitor/ARB due to hypotension Has been complaining of some shortness of breath and low blood pressure IV fluid has been discontinued Chest x-ray did not show any evidence of CSF Will monitor in the telemetry unit No significant arrhythmia but remains symptomatic of shortness of breath with exertion and occasional chest pain Very apprehensive and also has lots of anxiety Tried Ativan without any effect and will continue her usual process of Klonopin at home She was advised to have more ambulation while in the hospital and if she has been feeling better she may be going home today or tomorrow (2) Chest pain: Plan: Echocardiogram showed EF of Non-ST elevated [place] On and off chest pains for 1 week EKG no acute findings CTA chest no PE Initial troponin 922 And repeat is 661 ER started on IV heparin which was subsequently discontinued Still has some chest pain off and on Still has occasional chest pain/chest discomfort (3) NSTEMI (non-ST elevated myocardial infarction): Plan: 58-year-old female with past medical history significant for hypercholesteremia, diabetes mellitus, asthma in remission, lung nodule, history of Takotsubo cardiomyopathy x 2, atherosclerotic cardiovascular disease, irritable bowel syndrome, GERD, stage III chronic kidney disease history of subdural hematoma, history of PTSD associated nightmares, migraine variant, chronic anxiety, history of recurrent UTI, depression comes because of chest pains on and off since last 1 week. Patient states chest pain is about 7/10 in severity. Also last Monday she had couple of episodes of near syncope's and then had episode of 30 seconds of unresponsiveness at doctors office on Monday. During unresponsive episode she did not fall but she was staring and not responsive to any stimuli. She saw neurology yesterday and thought mostly vasovagal syncope and plan for EEG next Monday. After going home again she was having chest pains and was feeling very anxious and her heart was pounding and she was feeling could not breathe and could not climb steps and decided to come to the ER. Her blood pressure usually runs low and she is also on medications prazosin for nightmares which makes blood pressure low per patient. She did not take her prazosin tonight. Currently still feels short of breath. Having some headaches. Vision is okay. No runny nose or sore throat. No cough. No difficulty swallowing. Denies nausea. No abdominal pain. Normal bowel and bladder movements. Resting comfortably in the bed and was able to give her history. Hypotension Recent presyncope's and episode of unresponsiveness Neurology thought possibly vasovagal Will hold lisinopril and spironolactone Gentle fluids Remains hypotensive with blood pressure around 96/62 Asymptomatic at rest Will continue very small dose of beta-lucia but cannot take any SUMEET I or ARB or any spironolactone given ICD placed with [place] ICD is not given this patient Blood pressure remains stable on the lower level at 117/71 Blood pressure remains on the lower side of normal Diabetes Hold metformin Sliding scale Hemoglobin A1c is 5.9 which has not changed since 03/30/2018 Hypercholesterolemia On Zocor CKD stage III Presented creatinine 1.3 Seems around baseline Will follow labs-creatinine has been normalized PTSD Depression Chronic anxiety History of panic attacks Continue home medications History of recurrent UTI Follow UA GERD On Protonix DVT prophylaxis On IV heparin Disposition Telemetry Full code. Likely discharge this afternoon or tomorrow (4) Nonobstructive atherosclerosis of coronary artery: Admission and Anticipated Discharge Date Admission Date: May 17, 2024 Subjective 05/18/2024 The patient was seen and examined in telemetry unit in presence of the mother She has had chest pain last night and apparent EKG and troponin were negative Has been feeling better this morning and denies any significant symptoms 05/19/2024 The patient was seen and examined in telemetry unit She has been complaining of chest pain and the blood pressure noted to be low Continues to have some shortness of breath and the intravenous fluid has been discontinued Will need to observe for today and tomorrow 05/20/2024 The patient was seen and examined in telemetry unit She is very anxious and also depressed given her current cardiac conditions Still getting occasional chest pain and sweating and shortness of breath with minimal exertion She was given a small dose of Ativan with an effect now she will have her usual Klonopin as she has been taking at home Advised to have more ambulation with assistance prior to discharge Review of Systems Review of Systems: All systems reviewed and are unremarkable except as noted below Physical Exam Constitutional: well developed, well nourished, + ill appearing and + obese Eyes: PERRL, conjunctivae normal, anicteric sclerae ENMT: external ear and nose normal, oropharynx normal Neck: trachea midline, no thyromegaly Respiratory: no respiratory distress Auscultation: lungs clear to auscultation bilaterally (Minimal crackles at the bases) Cardiovascular: Rate/Rhythm: regular rate and regular rhythm; not tachycardic Heart Sounds: normal S1 and normal S2; no murmur Extremities: no edema Gastrointestinal (Abdomen): Inspection/Auscultation: normal bowel sounds; abdomen not distended Percussion/Palpation: + abdomen tender and abdomen soft Neurologic: normal touch/pain/proprioception and moves all extremities; no focal motor deficits Psychiatric: A+Ox3, euthymic affect Lymphatic: no cervical or axillary lymphadenopathy Results & Data Results & Data Vital Signs (Past 12 Hours) Vital Signs Temp Pulse Pulse Resp BP Pulse Ox O2 Del Method 05/20/24 10:41 36.9 C 65 17 117/78 98 Room Air 05/20/24 07:45 Room Air 05/20/24 07:45 60 05/20/24 07:03 36.7 C 61 18 107/69 99 Room Air 05/20/24 03:27 36.5 C 65 18 104/66 96 Room Air Laboratory Results [facility] 05/20/24 05:36 Sodium 141 Potassium 3.8 Chloride 111 H Carbon Dioxide 26 BUN 18 Creatinine 1.14 Glucose 104 H Calcium 8.2 L Medications Administered Current Inpatient Medications Acetaminophen (Acetaminophen 325 Mg Tab) 650 mg PO Q4H PRN PRN Reason: Pain or Fever Stop: 06/16/24 03:54 Last Admin: 05/20/24 05:07 Dose: 650 mg Albuterol (Albuterol Hfa 8 Gm Inhaler) 1 puffs INH Q4H PRN PRN Reason: PANIC ATTACKS Stop: 06/16/24 03:54 Amphetamine/Dextroamphetamine (Dextroamphetamine/Amphetamine Ir 20 Mg Tab) 20 mg PO BID@0700,1400 [facility] Stop: 05/31/24 06:59 Last Admin: 05/20/24 07:44 Dose: 20 mg Aspirin (Aspirin 81 Mg Ectab) 81 mg PO QAM [facility] Stop: 06/16/24 10:14 Last Admin: 05/20/24 07:45 Dose: 81 mg Atorvastatin Calcium (Atorvastatin 40 Mg Tab) 40 mg PO QAM [facility] Stop: 06/17/24 08:59 Last Admin: 05/20/24 07:45 Dose: 40 mg Bupropion HCl (Bupropion Sr 100 Mg Tabcr) 100 mg PO DAILY [facility] Stop: 06/16/24 08:59 Last Admin: 05/20/24 07:45 Dose: 100 mg Clonazepam (Clonazepam 0.5 Mg Tab) 0.5 mg PO TID PRN PRN Reason: Anxiety Stop: 06/16/24 03:54 Last Admin: 05/20/24 12:43 Dose: 0.5 mg Dextrose (Dextrose 50% 50 Ml Syringe) 25 - 50 ml IV UD PRN; Protocol PRN Reason: Hypoglycemia Protocol Stop: 06/16/24 04:00 Dicyclomine HCl (Dicyclomine Hcl 10 Mg Cap) 10 mg PO BID [facility] Stop: 06/16/24 08:59 Last Admin: 05/20/24 07:44 Dose: 10 mg Enoxaparin Sodium (Enoxaparin Inj 40 Mg/0.4 Ml Syr) 40 mg SQ QAM [facility] Stop: 06/17/24 08:59 Last Admin: 05/20/24 07:46 Dose: 40 mg Glucagon (Glucagon For Inj 1 Mg Vial) 1 mg SQ UD PRN; Protocol PRN Reason: Hypoglycemia Protocol Stop: 06/16/24 04:00 Glucose (Glucose 40% Gel 15 Gm Tube) 15 - 30 gm PO UD PRN; Protocol PRN Reason: Hypoglycemia Protocol Stop: 06/16/24 04:00 Glucose (Glucose 10 Tab/Tube) 4 - 8 tab PO UD PRN; Protocol PRN Reason: Hypoglycemia Treatment Stop: 06/16/24 04:00 Insulin Aspart (Insulin Aspart Per Unit Charge) [facility] Stop: 06/16/24 20:59 Last Admin: 05/20/24 12:14 Dose: Not Given Metoprolol Succinate (Metoprolol Succ 25mg Ext Rel Tab) 12.5 mg PO QAM [facility] Stop: 06/16/24 10:14 Last Admin: 05/20/24 07:44 Dose: 12.5 mg Miscellaneous (Estrace~Order Awaiting Action) 1 each N/A QS [facility] Stop: 06/16/24 07:59 Last Admin: 05/20/24 07:30 Dose: Not Given Miscellaneous (Tretinoin 0.1% Gel~Order Awaiting Action) 1 each N/A QS [facility] Stop: 06/16/24 07:59 Last Admin: 05/20/24 07:30 Dose: Not Given Miscellaneous (Carbohydrates For Hypoglycemia ) 15 - 30 gm PO UD PRN PRN Reason: Hypoglycemia Protocol Stop: 06/16/24 04:00 Nitroglycerin (Nitroglycerin Sl 0.4 Mg/Tab Tab) 0.4 mg SL Q5M PRN PRN Reason: Chest Pain Stop: 06/16/24 03:54 Pantoprazole Sodium (Pantoprazole 40 Mg Tab) 40 mg PO [facility] Stop: 06/16/24 08:59 Last Admin: 05/20/24 07:45 Dose: 40 mg Polyethylene Glycol (Polyethylene (Miralax) 17 Gm Pack) 17 gm PO DAILY PRN PRN Reason: Constipation Stop: 06/16/24 03:54 Prazosin HCl (Prazosin Hcl 1 Mg Cap) 5 mg PO [facility] Stop: 06/16/24 20:59 Last Admin: 05/19/24 20:23 Dose: 5 mg Sertraline HCl (Sertraline Hcl 100 Mg Tablet) 100 mg PO [facility] Stop: 06/16/24 08:59 Last Admin: 05/20/24 07:44 Dose: 100 mg Topiramate (Topiramate 50 Mg Tab) 50 mg PO [facility] Stop: 06/16/24 20:59 Last Admin: 05/19/24 20:19 Dose: 50 mg (2) Chest pain Chest pain type: unspecified Qualified Code(s): R07.9 - Chest pain, unspecified
[2024-05-21 07:04] VITALS: TEMP 98.1
[2024-05-21 08:24] LABS: BUN Creatinine Ratio 13.4 (10-20); Calcium 8.4 mg/dl (8.6-10.3); Creatinine Clr Calc Pharmacy 51.5 ml/min; Est GFR (African American) 57.5 ml/min; Est GFR (Non-African American) 49.6 ml/min; Magnesium 1.8 mg/dl (1.7-2.4)
[2024-05-21 10:39] VITALS: BP 113/76; RESP 17; O2SAT 99
--- NOTE | 2024-05-21 13:34 | Hospitalist Progress Note ---
Date of Service May 21, 2024 Assessment & Plan (1) Takotsubo cardiomyopathy: Plan: Takotsubo cardiomyopathy diagnosed in 2014 Presented with on and off chest pain for more than 1 week Echo of the heart that was done on of this month showed severe diffuse hypokinesis of the mid and apical segments of the left ventricle with relative sparing of the basal segments, severe left ventricular systolic dysfunction with EF of 25 to 30%. No significant change compared with prior echocardiogram Status post cardiac cath did show nonobstructive disease with 50% proximal to mid LAD and 30 to 40% mid circumflex and 20 to 30% proximal mid RCA obstruction. Medical management contemplated Appreciate cardiology input and recommendation Remains free from any pain since this morning Will continue current management-cannot use any spironolactone and/or SUMEET inh ibitor/ARB due to hypotension Has been complaining of some shortness of breath and low blood pressure IV fluid has been discontinued Chest x-ray did not show any evidence of CSF Will monitor in the telemetry unit No significant arrhythmia but remains symptomatic of shortness of breath with exertion and occasional chest pain Very apprehensive and also has lots of anxiety Tried Ativan without any effect and will continue her usual process of Klonopin at home She was advised to have more ambulation while in the hospital and if she has been feeling better she may be going home today or tomorrow Remains medically stable without any significant symptoms Will be discharged home this afternoon Will have cardiology appointment as an outpatient sooner than later (2) Chest pain: Plan: Echocardiogram showed EF of Non-ST elevated NE On and off chest pains for 1 week EKG no acute findings CTA chest no PE Initial troponin 922 And repeat is 661 ER started on IV heparin which was subsequently discontinued Still has some chest pain off and on Still has occasional chest pain/chest discomfort No more chest pain (3) NSTEMI (non-ST elevated myocardial infarction): Plan: 58-year-old female with past medical history significant for hypercholesteremia, diabetes mellitus, asthma in remission, lung nodule, history of Takotsubo cardiomyopathy x 2, atherosclerotic cardiovascular disease, irritable bowel syndrome, GERD, stage III chronic kidney disease history of subdural hematoma, history of PTSD associated nightmares, migraine variant, chronic anxiety, history of recurrent UTI, depression comes because of chest pains on and off since last 1 week. Patient states chest pain is about 7/10 in severity. Also last Monday she had couple of episodes of near syncope's and then had episode of 30 seconds of unresponsiveness at doctors office on Monday. During unresponsive episode she did not fall but she was staring and not responsive to any stimuli. She saw neurology yesterday and thought mostly vasovagal syncope and plan for EEG next Monday. After going home again she was having chest pains and was feeling very anxious and her heart was pounding and she was feeling could not breathe and could not climb steps and decided to come to the ER. Her blood pr essure usually runs low and she is also on medications prazosin for nightmares which makes blood pressure low per patient. She did not take her prazosin tonight. Currently still feels short of breath. Having some headaches. Vision is okay. No runny nose or sore throat. No cough. No difficulty swallowing. Denies nausea. No abdominal pain. Normal bowel and bladder movements. Resting comfortably in the bed and was able to give her history. Hypotension Recent presyncope's and episode of unresponsiveness Neurology thought possibly vasovagal Will hold lisinopril and spironolactone Gentle fluids Remains hypotensive with blood pressure around 96/62 Asymptomatic at rest Will continue very small dose of beta-lucia but cannot take any SUMEET I or ARB or any spironolactone given ICD placed with [place] ICD is not given this patient Blood pressure remains stable on the lower level at 117/71 Blood pressure remains on the lower side of normal Blood pressure remains at the lower end of normal at 113/76 Diabetes Hold metformin Sliding scale Hemoglobin A1c is 5.9 which has not changed since 03/30/2018 Hypercholesterolemia On Zocor CKD stage III Presented creatinine 1.3 Seems around baseline Will follow labs-creatinine has been normalized PTSD Depression Chronic anxiety History of panic attacks Continue home medications History of recurrent UTI Follow [facility] GERD On Protonix DVT prophylaxis On IV heparin Disposition Telemetry Full code. Likely discharge this afternoon (4) Nonobstructive atherosclerosis of coronary artery: Admission and Anticipated Discharge Date Admission Date: May 17, 2024 Subjective 05/18/2024 The patient was seen and examined in telemetry unit in presence of the mother She has had chest pain last night and apparent EKG and troponin were negative Has been feeling better this morning and denies any significant symptoms 05/19/2024 The patient was seen and examined in telemetry unit She has been complaining of chest pain and the blood pressure noted to be low Continues to have some shortness of breath and the intravenous fluid has been discontinued Will need to observe for today and tomorrow 05/20/2024 The patient was seen and examined in telemetry unit She is very anxious and also depressed given her current cardiac conditions Still getting occasional chest pain and sweating and shortness of breath with minimal exertion She was given a small dose of Ativan with an effect now she will have her usual Klonopin as she has been taking at home Advised to have more ambulation with assistance prior to discharge 05/21/2024 The patient was seen and examined in telemetry unit She has been stable today Has been moving around the hallway without any significant dizziness and/or chest pain She will be discharged home this afternoon Review of Systems Review of Systems: All systems reviewed and are unremarkable except as noted below Physical Exam Constitutional: well developed, well nourished, + ill appearing and + obese Eyes: PERRL, conjunctivae normal, anicteric sclerae ENMT: external ear and nose normal, oropharynx normal Neck: trachea midline, no thyromegaly Respiratory: no respiratory distress Auscultation: lungs clear to auscultation bilaterally (Minimal crackles at the bases) Cardiovascular: Rate/Rhythm: regular rate and regular rhythm; not tachycardic Heart Sounds: normal S1 and normal S2; no murmur Extremities: no edema Gastrointestinal (Abdomen): Inspection/Auscultation: normal bowel sounds; abdomen not distended Percussion/Palpation: + abdomen tender and abdomen soft Neurologic: normal touch/pain/proprioception and moves all extremities; no focal motor deficits Psychiatric: A+Ox3, euthymic affect Lymphatic: no cervical or axillary lymphadenopathy Results & Data Results & Data Vital Signs (Past 12 Hours) Vital Signs Temp Pulse Pulse Resp BP Pulse Ox O2 Del Method 05/21/24 10:38 72 17 113/76 99 Room Air 05/21/24 09:28 73 116/76 05/21/24 08:07 59 L 05/21/24 07:03 36.7 C 57 L 16 95/60 L 97 Room Air 05/21/24 03:16 37.0 C 66 18 102/65 96 Room Air Laboratory Results [facility] 05/21/24 07:46 Sodium 140 Potassium 4.0 Chloride 109 H Carbon Dioxide 26 BUN 16 Creatinine 1.19 Glucose 134 H Calcium 8.4 L Medications Administered Current Inpatient Medications Acetaminophen (Acetaminophen 325 Mg Tab) 650 mg PO Q4H PRN PRN Reason: Pain or Fever Stop: 06/16/24 03:54 Last Admin: 05/21/24 05:56 Dose: 650 mg Albuterol (Albuterol Hfa 8 Gm Inhaler) 1 puffs INH Q4H PRN PRN Reason: PANIC ATTACKS Stop: 06/16/24 03:54 Amphetamine/Dextroamphetamine (Dextroamphetamine/Amphetamine Ir 20 Mg Tab) 20 mg PO BID@0700,1400 [facility] Stop: 05/31/24 06:59 Last Admin: 05/21/24 08:07 Dose: 20 mg Aspirin (Aspirin 81 Mg Ectab) 81 mg PO QAM [facility] Stop: 06/16/24 10:14 Last Admin: 05/21/24 08:07 Dose: 81 mg Atorvastatin Calcium (Atorvastatin 40 Mg Tab) 40 mg PO QAM [facility] Stop: 06/17/24 08:59 Last Admin: 05/21/24 08:07 Dose: 40 mg Bupropion HCl (Bupropion Sr 100 Mg Tabcr) 100 mg PO DAILY [facility] Stop: 06/16/24 08:59 Last Admin: 05/21/24 08:08 Dose: 100 mg Clonazepam (Clonazepam 0.5 Mg Tab) 0.5 mg PO TID PRN PRN Reason: Anxiety Stop: 06/16/24 03:54 Last Admin: 05/20/24 12:43 Dose: 0.5 mg Dextrose (Dextrose 50% 50 Ml Syringe) 25 - 50 ml IV UD PRN; Protocol PRN Reason: Hypoglycemia Protocol Stop: 06/16/24 04:00 Dicyclomine HCl (Dicyclomine Hcl 10 Mg Cap) 10 mg PO BID [facility] Stop: 06/16/24 08:59 Last Admin: 05/21/24 08:07 Dose: 10 mg Enoxaparin Sodium (Enoxaparin Inj 40 Mg/0.4 Ml Syr) 40 mg SQ QAM [facility] Stop: 06/17/24 08:59 Last Admin: 05/21/24 08:10 Dose: 40 mg Glucagon (Glucagon For Inj 1 Mg Vial) 1 mg SQ UD PRN; Protocol PRN Reason: Hypoglycemia Protocol Stop: 06/16/24 04:00 Glucose (Glucose 40% Gel 15 Gm Tube) 15 - 30 gm PO UD PRN; Protocol PRN Reason: Hypoglycemia Protocol Stop: 06/16/24 04:00 Glucose (Glucose 10 Tab/Tube) 4 - 8 tab PO UD PRN; Protocol PRN Reason: Hypoglycemia Treatment Stop: 06/16/24 04:00 Insulin Aspart (Insulin Aspart Per Unit Charge) 0 units SC ACHS [facility] Stop: 06/16/24 20:59 Last Admin: 05/21/24 11:59 Dose: Not Given Metoprolol Succinate (Metoprolol Succ 25mg Ext Rel Tab) 12.5 mg PO QAM [facility] Stop: 06/16/24 10:14 Last Admin: 05/21/24 09:28 Dose: 12.5 mg Miscellaneous (Estrace~Order Awaiting Action) 1 each N/A QS [facility] Stop: 06/16/24 07:59 Last Admin: 05/21/24 07:36 Dose: Not Given Miscellaneous (Tretinoin 0.1% Gel~Order Awaiting Action) 1 each N/A QS [facility] Stop: 06/16/24 07:59 Last Admin: 05/21/24 07:36 Dose: Not Given Miscellaneous (Carbohydrates For Hypoglycemia ) 15 - 30 gm PO UD PRN PRN Reason: Hypoglycemia Protocol Stop: 06/16/24 04:00 Nitroglycerin (Nitroglycerin Sl 0.4 Mg/Tab Tab) 0.4 mg SL Q5M PRN PRN Reason: Chest Pain Stop: 06/16/24 03:54 Pantoprazole Sodium (Pantoprazole 40 Mg Tab) 40 mg PO [facility] Stop: 06/16/24 08:59 Last Admin: 05/21/24 08:07 Dose: 40 mg Polyethylene Glycol (Polyethylene (Miralax) 17 Gm Pack) 17 gm PO DAILY PRN PRN Reason: Constipation Stop: 06/16/24 03:54 Prazosin HCl (Prazosin Hcl 1 Mg Cap) 5 mg PO [facility] Stop: 06/16/24 20:59 Last Admin: 05/20/24 20:27 Dose: 5 mg Sertraline HCl (Sertraline Hcl 100 Mg Tablet) 100 mg PO [facility] Stop: 06/16/24 08:59 Last Admin: 05/21/24 08:08 Dose: 100 mg Topiramate (Topiramate 50 Mg Tab) 50 mg PO [facility] Stop: 06/16/24 20:59 Last Admin: 05/20/24 20:27 Dose: 50 mg (2) Chest pain Chest pain type: unspecified Qualified Code(s): R07.9 - Chest pain, unspecified
[2024-05-21 14:31] VITALS: PULSE 63
--- NOTE | 2024-05-21 15:17 | Cardiology Progress Note ---
Date of Service May 21, 2024 Assessment & Plan (1) Takotsubo cardiomyopathy: Plan: Echocardiogram performed 05/17/2024 revealed severe diffuse hypokinesis of the mid and apical segments of the left ventricle with relative sparing of the basal segments, severe left ventricular systolic dysfunction LVEF in the range of 25 to 30%. Similar to echocardiogram performed in 2014 in setting of acute Takotsubo cardiomyopathy. Coronary angiography 05/17/2024 (previous procedures in 2014 and 2017) found to have moderate nonobstructive disease with 50% proximal to mid LAD, 30-40% mid circumflex, 20-30% proximal mid RCA, LVEDP 18. Natural history and pathophysiology of Takotsubo cardiomyopathy discussed. Recommend conservative medical management and follow-up with mental health professional for treatment of anxiety. Continue aspirin 81 mg daily, metoprolol succinate 12.5 mg daily, atorvastatin 40 mg daily. She is not on an SUMEET inhibitor, ARB, MRA, or ARNI due to relative low blood pressure. Encourage patient to begin a regular walking program slowly, however, rest with any exertional shortness of breath or exercise intolerance. Understands need to gradually increase exercise as tolerated. Outpatient cardiology follow-up scheduled. All questions answered to patient's satisfaction. No further inpatient testing or intervention recommended at this time. Cardiology will sign off. Please call with further concerns/questions. Admission and Anticipated Discharge Date Admission Date: May 17, 2024 Subjective 58-year-old female seen examined at the bedside. Questions today regarding activity restrictions and medications postdischarge. Denies any chest discomfort or unusual shortness of breath at this time telemetry shows sinus rhythm in the 60s with occasional PVCs. Admits to longstanding history of general anxiety disorder. Currently following with a mental health professional. Review of Systems Review of Systems: All systems reviewed & are unremarkable except as noted in Subjective Physical Exam Constitutional: well nourished; no acute distress Respiratory: no respiratory distress, no labored breathing and no retractions Auscultation: no crackles, no rales, no rhonchi and no wheezes Cardiovascular: Rate/Rhythm: regular rate and regular rhythm Heart Sounds: normal S1 and normal S2; no murmur Vessels: radial pulses present; no JVD and no carotid bruit Extremities: no edema Gastrointestinal (Abdomen): Inspection/Auscultation: abdomen normal to inspection and normal bowel sounds; abdomen not distended Percussion/Palpation: abdomen nontender Neurologic: CN's II-XI intact bilaterally and moves all extremities; no focal motor deficits Results & Data Vital Signs (Past 12 Hours) Vital Signs Temp Pulse Pulse Resp BP Pulse Ox O2 Del Method 05/21/24 14:31 63 05/21/24 10:38 72 17 113/76 99 Room Air 05/21/24 09:28 73 116/76 05/21/24 08:07 59 L 05/21/24 07:03 36.7 C 57 L 16 95/60 L 97 Room Air 05/21/24 03:16 37.0 C 66 18 102/65 96 Room Air Laboratory Results Comprehensive Metabolic Panel 05/21/24 Range/Units 07:46 Sodium 140 (136-145) mmol/L Potassium 4.0 (3.5-5.1) mmol/L Chloride 109 H (98-107) mmol/L Carbon Dioxide 26 (21-32) mmol/L BUN 16 (6-23) mg/dl Creatinine 1.19 (0.6-1.2) mg/dl Glucose 134 H (70-99(Fasting)) mg/dl Calcium 8.4 L (8.6-10.3) mg/dl Intake and Output 05/21/24 05/21/24 05/21/24 06:59 14:59 22:59 Other: # Unmeasured Voids 2 Weight 76.6 kg Weight Measurement Method Built in [facility]
--- NOTE | 2024-05-21 18:47 | Discharge Summary ---
Date of Service May 21, 2024 Admission HPI Per Admitting Provider 58-year-old female with past medical history significant for hypercholesteremia, diabetes mellitus, asthma in remission, lung nodule, history of Takotsubo cardiomyopathy x 2, atherosclerotic cardiovascular disease, irritable bowel syndrome, GERD, stage III chronic kidney disease history of subdural hematoma, history of PTSD associated nightmares, migraine variant, chronic anxiety, history of recurrent UTI, depression comes because of chest pains on and off since last 1 week. Patient states chest pain is about 7/10 in severity. Also last Monday she had couple of episodes of near syncope's and then had episode of 30 seconds of unresponsiveness at doctors office on Monday. During unresponsive episode she did not fall but she was staring and not responsive to any stimuli. She saw neurology yesterday and thought mostly vasovagal syncope and plan for EEG next Monday. After going home again she was having chest pains and was feeling very anxious and her heart was pounding and she was feeling could not breathe and could not climb steps and decided to come to the ER. Her blood pressure usually runs low and she is also on medications prazosin for nightmares which makes blood pressure low per patient. She did not take her prazosin tonight. Currently still feels short of breath. Having some headaches. Vision is okay. No runny nose or sore throat. No cough. No difficulty swallowing. Denies nausea. No abdominal pain. Normal bowel and bladder movements. Resting comfortably in the bed and was able to give her history. Past medical history. As mentioned above Past surgical history. Breast reduction. Colonoscopy. EGD. EGD with endoscopic ultrasound. Foot surgery. Ligation of oviducts. Cataracts. Social history. . No smoking. Alcohol occasional. No drugs currently. Family history. Mother has diabetes. Hyperlipidemia. Hypertension. Daughter has acid maltase deficiency. Brother has alcoholism. Admission Exam Per Admitting Provider Physical Exam: General- Not in distress Head- atraumatic Eyes- PERRL. ENT- oropharynx clear Neck- supple, no JVD. Lungs- clear to auscultation no wheezing or crackles Heart- regular rate and rhythm; no murmur, no gallop. Abdomen- normal bowel sounds, soft, nontender, no distension. Extremities- mild pretibial edema, no erythema seen Neuro- alert, oriented x 3; no facial palsy; no dysarthria; moves extremities Principal Diagnosis Takotsubo cardiomyopathy, chest pain, hypotension Discharge Exam Constitutional well developed, well nourished, + ill appearing and + obese Eyes PERRL, conjunctivae normal, anicteric sclerae ENMT external ear and nose normal, oropharynx normal Neck trachea midline, no thyromegaly Respiratory no respiratory distress Auscultation: lungs clear to auscultation bilaterally (Minimal crackles at the bases) Cardiovascular Rate/Rhythm: regular rate and regular rhythm; not tachycardic Heart Sounds: normal S1 and normal S2; no murmur Extremities: no edema Gastrointestinal (Abdomen) Inspection/Auscultation: normal bowel sounds; abdomen not distended Percussion/Palpation: + abdomen tender and abdomen soft Neurologic normal touch/pain/proprioception and moves all extremities; no focal motor deficits Psychiatric A+Ox3, euthymic affect Lymphatic no cervical or axillary lymphadenopathy Discharge Data Allergies Allergy/AdvReac Type Severity Reaction Status Date / Time contact metal agent Allergy Intermediate "metals Verified 05/16/24 23:46 other than gold" Sulfa (Sulfonamide Allergy Intermediate FACIAL Verified 05/16/24 22:41 Antibiotics) SWELLING buspirone AdvReac Severe SUICIDAL Verified 05/16/24 22:41 IDEATIONS Consultations 05/16/24 23:41 ED Decision to Admit Stat 05/17/24 08:00 Consult Cardiology Routine Procedures Performed Operation Date: 05/17/24 13:00 Actual Procedures p Cineradiography w/Routine Exam - Danyel Bajwa MD p Cath, Left with Cors and Vent - Danyel Bajwa MD Ordered Studies 05/16/24 21:56 CT angio chest PE protocol Stat 05/17/24 14:05 CL Cath Imgs for PACS use only Routine Hospital Course (1) Takotsubo cardiomyopathy: Takotsubo cardiomyopathy diagnosed in 2014 Presented with on and off chest pain for more than 1 week Echo of the heart that was done on of this month showed severe diffuse hypokinesis of the mid and apical segments of the left ventricle with relative sparing of the basal segments, severe left ventricular systolic dysfunction with EF of 25 to 30%. No significant change compared with prior echocardiogram Status post cardiac cath did show nonobstructive disease with 50% proximal to mid LAD and 30 to 40% mid circumflex and 20 to 30% proximal mid RCA obstruction. Medical management contemplated Appreciate cardiology input and recommendation Remains free from any pain since this morning Will continue current management-cannot use any spironolactone and/or SUMEET inhibitor/ARB due to hypotension Has been complaining of some shortness of breath and low blood pressure IV fluid has been discontinued Chest x-ray did not show any evidence of CSF Will monitor in the telemetry unit No significant arrhythmia but remains symptomatic of shortness of breath with exertion and occasional chest pain Very apprehensive and also has lots of anxiety Tried Ativan without any effect and will continue her usual process of Klonopin at home She was advised to have more ambulation while in the hospital and if she has been feeling better she may be going home today or tomorrow Remains medically stable without any significant symptoms Will be discharged home this afternoon Will have cardiology appointment as an outpatient sooner than later (2) Chest pain: Echocardiogram showed EF of Non-ST elevated FL On and off chest pains for 1 week EKG no acute findings CTA chest no PE Initial troponin 922 And repeat is 661 ER started on IV heparin which was subsequently discontinued Still has some chest pain off and on Still has occasional chest pain/chest discomfort No more chest pain (3) NSTEMI (non-ST elevated myocardial infarction): 58-year-old female with past medical history significant for hypercholesteremia, diabetes mellitus, asthma in remission, lung nodule, history of Takotsubo cardiomyopathy x 2, atherosclerotic cardiovascular disease, irritable bowel syndrome, GERD, stage III chronic kidney disease history of subdural hematoma, history of PTSD associated nightmares, migraine variant, chronic anxiety, history of recurrent UTI, depression comes because of chest pains on and off since last 1 week. Patient states chest pain is about 7/10 in severity. Also last Monday she had couple of episodes of near syncope's and then had episode of 30 seconds of unresponsiveness at doctors office on Monday. During unresponsive episode she did not fall but she was staring and not responsive to any stimuli. She saw neurology yesterday and thought mostly vasovagal syncope and plan for EEG next Monday. After going home again she was having chest pains and was feeling very anxious and her heart was pounding and she was feeling could not breathe and could not climb steps and decided to come to the ER. Her blood pressure usually runs low and she is also on medications prazosin for nightmares which makes blood pressure low per patient. She did not take her prazosin tonight. Currently still feels short of breath. Having some headaches. Vision is okay. No runny nose or sore throat. No cough. No difficulty swallowing. Denies nausea. No abdominal pain. Normal bowel and bladder movements. Resting comfortably in the bed and was able to give her history. Hypotension Recent presyncope's and episode of unresponsiveness Neurology thought possibly vasovagal Will hold lisinopril and spironolactone Gentle fluids Remains hypotensive with blood pressure around 96/62 Asymptomatic at rest Will continue very small dose of beta-lucia but cannot take any SUMEET I or ARB or any spironolactone given ICD placed with S[place]abe ICD is not given this patient Blood pressure remains stable on the lower level at 117/71 Blood pressure remains on the lower side of normal Blood pressure remains at the lower end of normal at 113/76 Diabetes Hold metformin Sliding scale Hemoglobin A1c is 5.9 which has not changed since 03/30/2018 Hypercholesterolemia On Zocor CKD stage III Presented creatinine 1.3 Seems around baseline Will follow labs-creatinine has been normalized PTSD Depression Chronic anxiety History of panic attacks Continue home medications History of recurrent UTI Follow UA GERD On Protonix DVT prophylaxis On IV heparin Disposition Telemetry Full code. Likely discharge this afternoon (4) Nonobstructive atherosclerosis of coronary artery: Total Time Total Time Spent Total Time Spent (In Minutes): 35 minutes Discharge Plan Discharge Items Patient Disposition: Home - Self-Care Reason For Visit: NSTEMI Discharge Diagnosis: Takotsubo cardiomyopathy, chest pain, hypotension Activity: Resume your previous activity Non-emergency contact: Primary Care Provider Call non-emergency contact if: you have any medication questions and your symptoms worsen Follow-up/Referrals: Arminda Simpson DO [Primary Care Provider] - 05/27/24 11:20 am (Date & Time 05/27/2024 11:20 AM Provider Arminda Simpson DO Department [facility] ) Diet: Heart Healthy and Low Sodium (2gm) Addtl Attending Provider Instructions: Please take precautions to avoid falls Take your medications as advised Avoid any strenuous activities Please keep appointments with your healthcare providers Pending Studies at Discharge: No Stand-Alone Forms: My [facility], Smoking Cessation Medications and DC Order Prescriptions: New atorvastatin 40 mg Tablet 40 mg PO QAM Qty: 30 0RF aspirin 81 mg Tablet,Delayed Release (Dr/Ec) 81 mg PO QAM Qty: 30 0RF metoprolol succinate 25 mg Tablet Extended Release 24 Hr 12.5 mg PO QAM Qty: 30 0RF Continued tretinoin microspheres 0.1 % gel 1 applic TOP UD PRN (Reason: ROSACEA) Qty: 45 0RF topiramate 50 mg tablet 50 mg PO HS nitroglycerin 0.4 mg tablet, sublingual 0.4 mg SL DIRECTED PRN (Reason: Chest Pain) prazosin 5 mg capsule 5 mg PO HS sertraline 100 mg tablet 100 mg PO QAM clonazepam 0.5 mg tablet 0.5 mg PO TID PRN (Reason: Anxiety) metformin 500 mg tablet 500 mg PO BID dextroamphetamine-amphetamine 20 mg tablet 20 mg PO BID pantoprazole 40 mg tablet,delayed release (DR/EC) 40 mg PO QAM dicyclomine 10 mg capsule 10 mg PO BID albuterol sulfate 90 mcg/actuation Hfa Aerosol Inhaler 1 inh INHALATION UD PRN (Reason: PANIC ATTACKS) bupropion HCl 100 mg tablet sustained-release 12 hr 100 mg PO DAILY Rx Instructions: WEANING OFF MED. estradiol 0.01 % (0.1 mg/gram) cream 0.25 g PV [id number] Discontinued spironolactone 100 mg tablet 100 mg PO BID Qty: 180 3RF simvastatin 20 mg tablet 20 mg PO QAM lisinopril 2.5 mg tablet 2.5 mg PO QPM Discharge Orders: Discharge Order (Routine); Ordered 05/21/24 Ordered By: Dakotah Loya Discharge Order- CHF (Routine); Ordered 05/21/24 Ordered By: Dakotah Kellogg/Other Patient Handouts: Diabetes and Heart Disease, Cardiac Rehab Exercise, Heart Attack Dc, Cardiac Rehab Getting Started, Exercising After a Heart Attack, Eating Heart-Healthy Foods, Living Well After a Heart Attack Admission Data Admit Date/Time: 05/17/24 03:25 Attending Provider: Dakotah Loya Admit Provider: Fly Langley Primary Care Provider: Arminda Simpson Other Providers: Fly Langley; Jean Schwartz Other Interventions: Discharge Summary Assessment (RN) Last Done: 05/21/24 15:18
--- NOTE | 2024-05-29 11:17 | Coding Query ---
To promote full compliance with coding requirements relating to patient care, provider participation is requested in all cases of advertising consultant uncertainty. Please assist us with the question(s) below: Coding Question(s): Patient was initially diagnosed with an NSTEMI and documented in the ( H&P, progress notes, D/C summary.) Per cardiology consult patient was diagnosed with non-obstructive CAD and Takotsubo. Please indicate if the NSTEMI is still a possible diagnosis or ruled out Physician's Response(s): Its there in the progress note.Never documented it was ruled out. NSTEMI ( ) Diagnosed and POA ( ) Diagnosed and not POA ( ) Ruled out ( + ) Other (please specify) MTDD
== END 2024-05-21 16:33 | disposition home or self-care (01) | DRG 282 ==
LOC: ED 20:30 → EDINP 05-17 03:25 → 2S 05-17 17:12